=== PATIENT | female | born 1990 | race Caucasian/White ===

== ENCOUNTER 2016-12-05 00:59 | Emergency (ER) | payer OTHER ==
[~2016-12-05] VITALS: Ht 175.3 cm; Wt 153.0 kg
[~2016-12-05 00:59] MED LIST: ALBUAER2 INH; CLOB-65 TOP; CYCL5TAB PO; DICY10CA55 PO; LANS30CA63 PO
[2016-12-05 01:05] VITALS: TEMP 36.4; Ht 175.3 cm; Wt 153.0 kg
[2016-12-05] MEDS ORDERED: DIAZEPAM 5MG TAB PO STA ×2 (01:08→01:52)
[2016-12-05] MEDS ORDERED: OXYCODONE HCL IR 5 MG TAB (IMMEDIATE RELEASE) PO STA (01:08)
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
[2016-12-05] MEDS ORDERED: OXYC1TAB3 PO (01:45)
[2016-12-05] MEDS ORDERED: DIAZ-165 PO (01:45)
[2016-12-05] MEDS ORDERED: VNTHFA/IN INH (01:51)
[2016-12-05] MEDS ORDERED: OXYCODONE IR HOME PACK PO ONE (02:00)
[2016-12-05] MEDS ORDERED: ONDANSETRON HOME PACK 4MG OD TAB PO ONE (02:00)
[2016-12-05 03:02] VITALS: BP 143/89; PULSE 84; O2SAT 99
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
[2017-06-14] MEDS ORDERED: MTR600X PO (15:26)
== END 2016-12-05 03:03 | disposition home or self-care (01) ==
LOC: EDBD 00:59 → C.EDB 01:01
DX: S13.4XXA Sprain of ligaments of cervical spine, initial encounter (principal); V89.2XXA Person injured in unspecified motor-vehicle accident, traffic, initial encounter; J45.909 Unspecified asthma, uncomplicated; K21.9 Gastro-esophageal reflux disease without esophagitis; E03.9 Hypothyroidism, unspecified; Z90.49 Acquired absence of other specified parts of digestive tract

== ENCOUNTER 2017-04-20 13:27 | Observation (INO) | payer OTHER ==
[~2017-04-20] VITALS: Ht 175.3 cm; Wt 149.2 kg
[~2017-04-20 13:27] MED LIST changes: -ALBUAER2 INH; -CLOB-65 TOP; +DIAZ-165 PO; +OXYC1TAB3 PO; +VNTHFA/IN INH
[2017-04-20] MEDS ORDERED: SODIUM CHLORIDE 0.9% 1000ML 1,000 ML IV STA (13:52)
[2017-04-20] MEDS ORDERED: LORAZEPAM 2 MG/ML 1 ML VIAL IV STA (14:02)
[2017-04-20 14:10] LABS: BASO % 0.2 %; BASO ABS # 0.02 K/uL (0-0.2); COMPLETE YES; EOS % 0.9 %; HEMATOCRIT 44.9 % (37-47); IG% 0.3 %; LYMPH % 21.4 %; LYMPH ABS # 2.21 K/uL (1.2-3.4); MEAN CELL VOLUME 86.2 fL (80-100); MEAN CORPUSCULAR HEMOGLOBIN 28.4 pg (25-34); MEAN PLATELET VOLUME 9.5 fL (7.4-10.4); MONO % 6.8 %; NEUT % 70.4 %; PLATELET COUNT 355 K/uL (130-400); RED BLOOD COUNT 5.21 M/uL (4.2-5.4); WHITE BLOOD COUNT 10.34 K/uL (4.8-10.8)
[2017-04-20] MEDS ORDERED: RANI300T2 PO (14:11)
[2017-04-20] MEDS ORDERED: FOLI1TAB7 PO (14:11)
[2017-04-20] MEDS ORDERED: HYDR50TA3 PO (14:11)
--- NOTE | 2017-04-20 14:12 | EMERGENCY ROOM VISIT NOTE ---
History Report prepared by Iraida: Severino Pike Under the Supervision of: Dr. Zoran Tian M.D. First contact with patient: 13:52 Chief Complaint: ILLNESS Stated Complaint: SYNCOPE/ANXIETY History of Present Illness The patient is a 26 year old female who presents to the Emergency Room via EMS for syncopal episodes this morning. She says that she felt fine yesterday and when she woke up this morning. The patient states that she took her daily medications as per usual this morning, including a thyroid hormone medication that she started 3 days ago for hyperthyroidism. She adds that she took 600 mg ibuprofen as well. She states that she does not remember falling to the ground, but did wake up at some point on a chair. The patient thinks she may have passed out an unknown number of times. She does not think she hit her head or bit her tongue. The patient says that she has had chest pain, a headache, nausea , and neck soreness starting this morning as well. The patient approximates that the chest pain started around 4 hours ago. She denies any vomiting. The only person in the house with her this morning was the patient's young daughter. She presents by ambulance. Source of History: patient, family Onset: This morning Position: other (global - syncope) Timing: other (episodes) Associated Symptoms: + LOC, + headache, + neck pain, + nausea, No vomiting Note: Associated symptoms: Denies hitting her head or biting her tongue. Review of Systems See HPI for pertinent positives & negatives. A total of 10 systems reviewed and were otherwise negative. Past Medical & Surgical Medical Problems: (1) Asthma (2) GERD (gastroesophageal reflux disease) (3) History of DVT of lower extremity (4) Hypothyroidism (5) Migraine (6) Migraine headache (7) Syncope and collapse Surgical Problems: (1) Status post cholecystectomy Family History Diabetes mellitus FH: cancer FH: gallbladder disease FH: heart disease FH: lung disease Hypertension Kidney disease or stones Seizures Social History Smoking Status: Never Smoker Alcohol Use: other Drug Use: none Marital Status: single Housing Status: lives with family Occupation Status: employed Current/Historical Medications Scheduled Folic Acid (Folvite), 1 MG PO DAILY Hydrochlorothiazide (Hctz), 50 MG PO DAILY Lansoprazole (Prevacid), 30 MG PO QAM Ranitidine (Zantac), 300 MG PO HS Scheduled PRN Albuterol Hfa (Ventolin Hfa), 2 PUFFS INH Q6H PRN for SOB/Wheezing Cyclobenzaprine Hcl (Flexeril), 5 MG PO TID PRN for Muscle Spasms Dicyclomine Hcl (Bentyl), 10-20 MG PO QID PRN for abd pain Allergies Coded Allergies: Heparin (Verified Allergy, Severe, CELLULITIS AT INJECTION SITES, 04/20/17) Blueberry (Verified Allergy, Intermediate, HIVES, 04/20/17) Ceftriaxone (Verified Allergy, Intermediate, itching,HIVES, 04/20/17) Cephalexin (Verified Allergy, Intermediate, ittchy, 04/20/17) Oxycodone (Verified Allergy, Intermediate, hives n/v, 04/20/17) Penicillins (Verified Allergy, Intermediate, AMOXICILLIN SOB, TACHYCARDIA & HIVES, 04/20/17) Codeine (Verified Allergy, Mild, RASH, 04/20/17) Morphine (Verified Allergy, Mild, ABDOMINAL PAIN,DIARRHEA,HIVES NAUSEA AND VOMITING, 04/20/17) Amoxicillin (Unverified Allergy, Unknown, HIVES,RASH HIGH BP,FAST HEART RATE,DIARRHEA,SOB, 04/20/17) Dust (Unverified Allergy, Unknown, WHEEZING,SOB, 04/20/17) Quadrivalent HPV (6,11,16,18) Recom (Verified Allergy, Unknown, RASH RAPID HEART BEAT, 04/20/17) Acetaminophen (Verified Adverse Reaction, Severe, ELEVATED LFTS WITH MINIMAL DOSES, 04/20/17) Unclassified Drugs (Verified Adverse Reaction, Intermediate, Vicryl Sutures - infection outcome x 2, 04/20/17) PER PATIENT, DEVELOPED INFECTION TWICE FOLLOWING PROCEDURES INVOLVING THE USE OF VICRYL STITCHING Vancomycin (Verified Adverse Reaction, Intermediate, ITCHING,SOB, 04/20/17) Tramadol (Verified Adverse Reaction, Mild, nausea, vomiting, 04/20/17) Physical Exam Vital Signs Date Time Temp Pulse Resp B/P (MAP) Pulse Ox O2 Delivery O2 Flow Rate FiO2 04/20/17 17:52 73 04/20/17 16:27 73 22 96 04/20/17 15:57 65 22 97 04/20/17 15:27 59 22 100 04/20/17 15:19 68 24 164/97 100 Room Air 04/20/17 15:17 68 24 164/97 100 Room Air 65 160/100 71 163/94 04/20/17 15:10 163/94 04/20/17 15:08 160/100 04/20/17 15:07 179/110 04/20/17 15:02 100 Room Air 04/20/17 14:57 66 27 04/20/17 14:53 61 164/97 04/20/17 14:45 164/97 04/20/17 14:11 72 04/20/17 13:57 58 27 04/20/17 13:47 168/101 04/20/17 13:44 36.7 78 24 198/110 100 Room Air Physical Exam GENERAL: Patient is in no acute distress. HEENT: No acute trauma, normocephalic atraumatic, mucous membranes moist, no nasal congestion, no scleral icterus. NECK: No stridor, no adenopathy, no meningismus, trachea is midline. LUNGS: Clear to auscultation bilaterally, no wheeze, no rhonchi, breath sounds equal. HEART: Without murmurs gallops or rubs, regular rate and rhythm. CHEST: Tender left chest wall. ABDOMEN: Soft, nontender, bowel sounds positive, no hernias, no peritonitis. EXTREMITIES: No cyanosis or edema, full range of motion of all the joints without pain or difficulty, no signs for acute trauma. Extremity tremor noted. NEUROLOGIC: Oriented x 3, no acute motor or sensory deficits, no focal weakness. SKIN: No rash, no jaundice, no diaphoresis. Medical Decision & Procedures ER Provider Diagnostic Interpretation: Radiology results as stated below per my review and radiologist interpretation: Patient's orthostatic vital signs are negative. CHEST ONE VIEW PORTABLE CLINICAL HISTORY: 26 years-old Female presenting with EVALUATE ALTERED MENTAL STATUS/WEAKNESS. TECHNIQUE: Portable upright AP view of the chest was obtained. COMPARISON: 05/29/2015. FINDINGS: Cardiomediastinal silhouette normal. Lungs and pleural spaces clear. Osseous structures and upper abdomen normal. IMPRESSION: 1. No acute cardiopulmonary disease. Electronically signed by: Kedar Dimas M.D. 04/20/2017 2:20 PM Dictated Date/Time: 04/20/2017 2:19 PM HEAD WITHOUT CONTRAST (CT) CLINICAL HISTORY: 26 years-old Female presenting with headache, syncope, neck pain, anxiety. TECHNIQUE: Multidetector CT imaging of the head was performed without the use of intravenous contrast. IV contrast: None. A dose lowering technique was used consistent with the principles of ALARA (as low as reasonably achievable). COMPARISON: None. CT DOSE (mGy.cm): The estimated cumulative dose is 1099.97 inclusive of the cervical spine. FINDINGS: Agronomy Instructor topogram: Unremarkable. Ventricles and sulci normal in size. Brain parenchyma normal in appearance with preserved galvan-white differentiation. No mass effect or midline shift. No hemorrhage or acute territorial infarct. No extra-axial fluid collection. Paranasal sinuses and mastoid air cells clear. Calvarium intact. Tiny soft tissue nodule at the left frontal vertex, possibly sebaceous cyst. IMPRESSION: 1. No acute intracranial pathology. Electronically signed by: Kedar Dimas M.D. 04/20/2017 2:42 PM Dictated Date/Time: 04/20/2017 2:40 PM CERVICAL SPINE W/O CT DOSE: 1099.97 mGy.cm HISTORY: Pain neck pain TECHNIQUE: Multiaxial CT images of the cervical spine were performed and reformatted in the sagittal and coronal plane without the use of contrast. A dose lowering technique was utilized adhering to the principles of ALARA. COMPARISON: None. FINDINGS: No fractures. No subluxation. Prevertebral soft tissues and the C1-C2 interval are intact. No pneumothorax. IMPRESSION: No fractures within the cervical spine. The above report was generated using voice recognition software. It may contain grammatical, syntax or spelling errors. Electronically signed by: Sudeep Anand M.D. 04/20/2017 2:42 PM Dictated Date/Time: 04/20/2017 2:40 PM Laboratory Results 04/20/17 14:00 Red Blood Count 5.21, Mean Corpuscular Volume 86.2, Mean Corpuscular Hemoglobin 28.4, Mean Corpuscular Hemoglobin Concent 33.0, Mean Platelet Volume 9.5, Neutrophils (%) (Auto) 70.4, Lymphocytes (%) (Auto) 21.4, Monocytes (%) (Auto) 6.8, Eosinophils (%) (Auto) 0.9, Basophils (%) (Auto) 0.2, Neutrophils # (Auto) 7.29, Lymphocytes # (Auto) 2.21, Monocytes # (Auto) 0.70, Eosinophils # (Auto) 0.09, Basophils # (Auto) 0.02 04/20/17 14:00 Test 04/20/17 14:00 04/20/17 14:17 04/20/17 18:45 White Blood Count 10.34 K/uL (4.8-10.8) Red Blood Count 5.21 M/uL (4.2-5.4) Hemoglobin 14.8 g/dL (12.0-16.0) Hematocrit 44.9 % (37-47) Mean Corpuscular Volume 86.2 fL (80-100) Mean Corpuscular Hemoglobin 28.4 pg (25-34) Mean Corpuscular Hemoglobin Concent 33.0 g/dl (32-36) Platelet Count 355 K/uL (130-400) Mean Platelet Volume 9.5 fL (7.4-10.4) Neutrophils (%) (Auto) 70.4 % Lymphocytes (%) (Auto) 21.4 % Monocytes (%) (Auto) 6.8 % Eosinophils (%) (Auto) 0.9 % Basophils (%) (Auto) 0.2 % Neutrophils # (Auto) 7.29 K/uL (1.4-6.5) Lymphocytes # (Auto) 2.21 K/uL (1.2-3.4) Monocytes # (Auto) 0.70 K/uL (0.11-0.59) Eosinophils # (Auto) 0.09 K/uL (0-0.5) Basophils # (Auto) 0.02 K/uL (0-0.2) RDW Standard Deviation 43.9 fL (36.4-46.3) RDW Coefficient of Variation 14.0 % (11.5-14.5) Immature Granulocyte % (Auto) 0.3 % Immature Granulocyte # (Auto) 0.03 K/uL (0.00-0.02) D-Dimer 530 ug/L FEU (0-500) Anion Gap 7.0 mmol/L (3-11) Est Creatinine Clear Calc Drug Dose 149.3 ml/min Estimated GFR () 103.0 Estimated GFR (Non- 88.9 BUN/Creatinine Ratio 20.4 (10-20) Calcium Level 9.4 mg/dl (8.5-10.1) Magnesium Level 2.2 mg/dl (1.8-2.4) Total Bilirubin 0.4 mg/dl (0.2-1) Aspartate Amino Transf (AST/SGOT) 15 U/L (15-37) Alanine Aminotransferase (ALT/SGPT) 32 U/L (12-78) Alkaline Phosphatase 108 U/L (45-117) Total Protein 7.7 gm/dl (6.4-8.2) Albumin 3.9 gm/dl (3.4-5.0) Globulin 3.8 gm/dl (2.5-4.0) Albumin/Globulin Ratio 1.0 (0.9-2) Thyroid Stimulating Hormone (TSH) 3.330 uIu/ml (0.300-4.500) Free Thyroxine 1.35 ng/dl (0.80-1.60) Human Chorionic Gonadotropin, Qual NEG (NEG) Urine Color YELLOW Urine Appearance CLEAR (CLEAR) Urine pH 5.5 (4.5-7.5) Urine Specific [place] 1.013 (1.000-1.030) Urine Protein NEG (NEG) Urine Glucose (UA) NEG (NEG) Urine Ketones NEG (NEG) Urine Occult Blood NEG (NEG) Urine Nitrite NEG (NEG) Urine Bilirubin NEG (NEG) Urine Urobilinogen NEG (NEG) Urine Leukocyte Esterase NEG (NEG) Urine Opiates Screen NEG (NEG) Urine Methadone, Qualitative NEG (NEG) Urine Barbiturates NEG (NEG) Urine Phencyclidine (PCP) Level NEG (NEG) Ur Amphetamine/Methamphetamine NEG (NEG) MDMA (Ecstasy) Screen NEG (NEG) Urine Benzodiazepines Screen NEG (NEG) Urine Cocaine Metabolite NEG (NEG) Urine Marijuana (THC) NEG (NEG) Laboratory results reviewed by me. Medications Administered Medications (Trade) Dose Ordered Sig/Lesvia Route Start Time Stop Time Status Last Admin Dose Admin Sodium Chloride 1,000 ml @ 999 mls/hr Q1H1M STAT IV 04/20/17 13:52 04/20/17 14:52 DC 04/20/17 14:56 999 MLS/HR Lorazepam (Ativan Inj) 0.5 mg NOW STAT IV 04/20/17 14:02 04/20/17 14:06 DC 04/20/17 14:56 0.5 MG Promethazine HCl 12.5 mg/Sodium Chloride 50.5 ml @ 204 mls/hr NOW STAT IV 04/20/17 15:24 04/20/17 15:38 DC 04/20/17 15:37 204 MLS/HR Ketorolac Tromethamine (Toradol Inj) 30 mg NOW STAT IV 04/20/17 15:24 04/20/17 15:26 DC 04/20/17 15:37 30 MG Hydromorphone HCl (Dilaudid Inj) 0.5 mg STK-MED ONCE .ROUTE 04/20/17 18:22 04/20/17 18:23 DC 04/20/17 18:25 0.5 MG ECG Indication: chest pain, syncope Rate (beats per minute): 58 Rhythm: sinus bradycardia Findings: no acute ischemic change, no ectopy ED Course 1352: Ordered NSS 1000 ml @ 999 mls/hr IV. 1359: The patient was evaluated in room B9. A complete history and physical exam was performed. 1402: Ordered Ativan Inj 0.5 mg IV. 1524: Ordered Toradol Inj 30 mg IV, Promethazine HCl 12.5 mg/Sodium Chloride 50.5 ml @ 204 mls/hr IV. 1528: Patient's orthostatic vital signs are negative. 1630: I reevaluated and updated the patient. 1725: Upon reexamination the patient is resting. I discussed results and treatment plan with the patient. She verbalizes agreement and understanding. The patient will be evaluated for further management. 1728: Ordered Dilaudid Inj 0.5 mg IV. 1730: I discussed the patient with Dr. Jaimee Higginbotham course developer - he will evaluate the patient for further treatment. Medical Decision Differential diagnoses considered include dehydration, anxiety, anemia, electrolyte imbalance, dysrhythmia, intracranial bleeding, medication reaction, UTI. There is no leukocytosis or concerning anemia. No significant electrolyte abnormality, kidney failure, hepatitis. The patient appears to be in a euthyroid state. EKG shows a sinus bradycardia, no acute ischemia. Cardiac enzyme testing times one does not suggest acute cardiac injury. Chest x-ray shows no mediastinal widening, pneumonia or pneumothorax. Brain CT shows no acute bleed or mass effect. C-spine CT shows no acute fracture. Urine tox is negative. Urinalysis does not show infection. testing is negative. D-dimer was very mildly elevated. The patient received IV saline, IV Toradol and IV Ativan. She received IV Phenergan and eventually a dose of IV Dilaudid. The patient still feels poorly. We did attempt to get her up to walk around the ER but she had a syncopal event just trying to get off the stretcher. I think the patient's chest pain is likely musculoskeletal as it is reproducible on exam. However, I cannot explain the patient's syncope. I find nothing on workup that is concerning, still, she cannot stand without passing out. Possibly, she is having a reaction to her new thyroid medication. Possibly, she had a seizure earlier today-no one witnessed the event. I did speak to the patient and family, the on-call hospitalist was consulted. Admission/observation is warranted given her situation. Further workup is required. Of note, because of the mildly elevated d-dimer, the patient did have a chest CT done, no PE was seen. Consults Time Called: 1725 Consulting Physician: Dr. Jaimee Higginbotham course developer Returned Call: 1730 I discussed the patient with Dr. Jaimee Higginbotham course developer - he will evaluate the patient for further treatment. Impression Primary Impression: Left sided chest pain Additional Impression: Syncope Scribe Attestation The scribe's documentation has been prepared under my direction and personally reviewed by me in its entirety. I confirm that the note above accurately reflects all work, treatment, procedures, and medical decision making performed by me. Departure Information Dispostion Being Evaluated By Hospitalist Referrals Ronel Hector DO (PCP) Patient Instructions My [facility] Problem Qualifiers Additional Impression: Syncope Encounter type: initial encounter
--- NOTE | 2017-04-20 14:21 | DIAGNOSTIC IMAGING REPORT ---
CHEST ONE VIEW PORTABLE CLINICAL HISTORY: 26 years-old Female presenting with EVALUATE ALTERED MENTAL STATUS/WEAKNESS. TECHNIQUE: Portable upright AP view of the chest was obtained. COMPARISON: 05/29/2015. FINDINGS: Cardiomediastinal silhouette normal. Lungs and pleural spaces clear. Osseous structures and upper abdomen normal. IMPRESSION: 1. No acute cardiopulmonary disease. Electronically signed by: Kedar Dimas M.D. 04/20/2017 2:20 PM Dictated Date/Time: 04/20/2017 2:19 PM
[2017-04-20 14:28] LABS: ALT/SGPT 32 U/L (12-78); AST/SGOT 15 U/L (15-37); BLOOD UREA NITROGEN 18 mg/dl (7-18); BUN/CREATININE RATIO 20.4 (10-20); CALCIUM 9.4 mg/dl (8.5-10.1); CARBON DIOXIDE 27 mmol/L (21-32); CHLORIDE 104 mmol/L (98-107); GLUCOSE 94 mg/dl (70-99); MAGNESIUM 2.2 mg/dl (1.8-2.4); POTASSIUM 3.2 mmol/L (3.5-5.1); SODIUM 138 mmol/L (136-145)
[2017-04-20 14:32] LABS: PREG INTERNAL NEGATIVE QC NEG CLEAR BACKGROUND; PREG INTERNAL POSITIVE QC POS CONTROL LINE
[2017-04-20 14:39] LABS: ALKALINE PHOSPHATASE 108 U/L (45-117)
--- NOTE | 2017-04-20 14:43 | DIAGNOSTIC IMAGING REPORT ---
CERVICAL SPINE W/O CT DOSE: 1099.97 mGy.cm HISTORY: Pain neck pain TECHNIQUE: Multiaxial CT images of the cervical spine were performed and reformatted in the sagittal and coronal plane without the use of contrast. A dose lowering technique was utilized adhering to the principles of ALARA. COMPARISON: None. FINDINGS: No fractures. No subluxation. Prevertebral soft tissues and the C1-C2 interval are intact. No pneumothorax. IMPRESSION: No fractures within the cervical spine. The above report was generated using voice recognition software. It may contain grammatical, syntax or spelling errors. Electronically signed by: Sudeep Anand M.D. 04/20/2017 2:42 PM Dictated Date/Time: 04/20/2017 2:40 PM
--- NOTE | 2017-04-20 14:43 | DIAGNOSTIC IMAGING REPORT ---
HEAD WITHOUT CONTRAST (CT) CLINICAL HISTORY: 26 years-old Female presenting with headache, syncope, neck pain, anxiety. TECHNIQUE: Multidetector CT imaging of the head was performed without the use of intravenous contrast. IV contrast: None. A dose lowering technique was used consistent with the principles of ALARA (as low as reasonably achievable). COMPARISON: None. CT DOSE (mGy.cm): The estimated cumulative dose is 1099.97 inclusive of the cervical spine. FINDINGS: Automotive Product Engineer topogram: Unremarkable. Ventricles and sulci normal in size. Brain parenchyma normal in appearance with preserved galvan-white differentiation. No mass effect or midline shift. No hemorrhage or acute territorial infarct. No extra-axial fluid collection. Paranasal sinuses and mastoid air cells clear. Calvarium intact. Tiny soft tissue nodule at the left frontal vertex, possibly sebaceous cyst. IMPRESSION: 1. No acute intracranial pathology. Electronically signed by: Kedar Dimas M.D. 04/20/2017 2:42 PM Dictated Date/Time: 04/20/2017 2:40 PM
[2017-04-20 14:52] LABS: URINE APPEARANCE CLEAR (CLEAR); URINE BILIRUBIN NEG (NEG); URINE COLOR YELLOW; URINE NITRITE NEG (NEG); URINE PH 5.5 (4.5-7.5); URINE SPECIFIC GRAVITY 1.013 (1.000-1.030); UROBILINOGEN NEG (NEG); ZZUR CULT IF INDIC CLEAN CATCH NO
[2017-04-20 14:59] LABS: MANUAL MICROSCOPIC REQUIRED? NO; REVIEW REQ? NO
[2017-04-20] MEDS ORDERED: KETOROLAC TROMETHAMINE 30 MG/ML VIAL IV STA (15:24)
[2017-04-20] MEDS ORDERED: PROMETHAZINE HCL INJ 12.5 MG in SODIUM CHLORIDE 0.9% 50ML 50 ML IV STA (15:24)
[2017-04-20 15:26] LABS: BENZODIAZEPINE, URINE NEG (NEG); COCAINE,URINE NEG (NEG); PHENCYCLIDINE, URINE NEG (NEG)
[2017-04-20] MEDS ORDERED: HYDROmorphone INJ 2 MG/ML SYR/VIAL IV STA (17:28)
[2017-04-20] MEDS ORDERED: ALBUTEROL HFA 8 GM INHALER INH PRN (18:00)
[2017-04-20] MEDS ORDERED: DICYCLOMINE HCL 20 MG TAB PO PRN (18:00)
[2017-04-20] MEDS ORDERED: OPTIRAY 320 IV PRN (18:15)
[2017-04-20] MEDS ORDERED: HYDROmorphone INJ 0.5 MG/0.5 ML SYR ONE (18:22)
--- NOTE | 2017-04-20 18:48 | DIAGNOSTIC IMAGING REPORT ---
CT ANGIOGRAPHY OF THE CHEST, PULMONARY EMBOLUS PROTOCOL CLINICAL HISTORY: Elevated d-dimer. Syncope. COMPARISON STUDY: Chest CT in October 06, 2015 TECHNIQUE: Following IV administration of 94 mL of Optiray-320, helical axial images of the chest were obtained utilizing the pulmonary embolus protocol. Maximal intensity projections and sagittal and coronal reformats were viewed on an independent 3D workstation. IV contrast was administered without complication. A dose lowering technique was utilized adhering to the principles of ALARA. CT DOSE: 642.33 mGy.cm FINDINGS: No pulmonary emboli are identified although segmental and subsegmental vessels are suboptimally assessed due to respiratory motion. There is no evidence of thoracic aortic dissection. The size the heart is normal. There is no pericardial effusion. Ground glass opacities within lungs favor atelectasis. There is no consolidation to suggest pneumonia. No pneumothorax or pleural effusion is present. No enlarged axillary, mediastinal or hilar lymph nodes are present. The gallbladder surgically absent. Mild elevation of the right hemidiaphragm is unchanged. There may be fatty infiltration of the liver. IMPRESSION: 1. No pulmonary emboli identified although segmental and subsegmental vessels suboptimally assessed due to respiratory motion. 2. No acute intrathoracic findings. 3. Groundglass opacities within the lower lobes which favor atelectasis. Electronically signed by: Mik Arredondo M.D. 04/20/2017 6:47 PM Dictated Date/Time: 04/20/2017 6:40 PM
[2017-04-20] MEDS ORDERED: IV FLUIDS COMPLETED PRN (19:00)
--- NOTE | 2017-04-20 19:02 | HISTORY & PHYSICAL EXAMINATION ---
DATE OF ADMISSION: 04/20/2017 PRIMARY CARE PHYSICIAN: Dr. Ronel Hector. CHIEF COMPLAINT: Recurrent syncopal episode since this morning. HISTORY OF PRESENT COMPLAINT: She is a 26-year-old female with significant past medical history including migraine, chronic diarrhea, hypothyroidism, esophageal reflux, dysfunction of eustachian tube, allergic rhinitis, obesity, apparently has been complaining of recurrent syncope since this morning. She feels lightheaded with dizziness and feels her heart is racing. She gets shortness of breath and loses consciousness, according to the family members and the fiance. It has been going on off and on. She is out from anywhere between a few seconds to minutes, but she can be awakened with shaking and calling her names. There is no history of numbness or tingling or any weakness involving any side, before the episode. No history of palpitations before the episode and no fever, chills or rigors. No injury from syncope or no self injury. No rolling of the eyes and no history of incontinence and/or frothing from the mouth. She does not feel generally weak and lethargic following any of the episodes. 911 was called and she was brought into the Emergency Room. In the ER, she was hemodynamically stable. Her apparent test including CAT scan, x-rays, EKG and blood test came out to be unremarkable. She was about to leave, but she got very dizzy on standing and from that point, internal medicine consulted and she is going to be in the hospital for observation. PAST MEDICAL HISTORY: Significant for classic migraine, intestinal disaccharidase deficiency with chronic diarrhea, hypothyroidism diagnosed recently, esophageal reflux, history of dysfunction of the eustachian tube, allergic rhinitis, obesity, and history of DVT. PAST SURGICAL HISTORY: Significant for arthro surgery of the left knee, laparoscopic cholecystectomy, small bowel endoscopy, vein ablation of the right thigh and also on the left side. FAMILY HISTORY: Aunt has diabetes. Sister has diabetes. Father had a stroke and sleep apnea. Maternal grandparent and grandmother did have hypertension. SOCIAL HISTORY: She is single. She lives with her fiance. She has 1 child. She does not smoke, drinks occasionally, and she has been reasonably ambulant. ALLERGIES: SHE IS ALLERGIC TO MANY MEDICATIONS INCLUDING HEPARIN, BLUEBERRY, CEFTRIAXONE, OXYCODONE, PENICILLINS, CODEINE, MORPHINE, AMOXICILLIN, DUST, CONTRAST DYE, TYLENOL, VICRYL SUTURES, VANCOMYCIN AND TRAMADOL. MEDICATIONS: As an outpatient, she has been taking albuterol inhaler as needed, Flexeril 5 mg 3 times daily, Bentyl 10-20 mg as directed, folic acid 1 mg daily, hydrochlorothiazide 50 mg daily, Prevacid 30 mg daily, and ranitidine 300 mg at nighttime. She has been taking levothyroxine 75 mcg for the last 3 days. REVIEW OF SYSTEMS: Other systemic review unremarkable except those mentioned in history of present illness. PHYSICAL EXAMINATION: GENERAL: In the Emergency Room, she was not having any acute distress. VITAL SIGNS: Temperature 36.7, pulse of 72; blood pressure initially high 198/110, it came down to 160/97; saturation 96% on room air. HEENT: Unremarkable. NECK: Supple. No JVD, no bruit. CHEST: Clear to auscultate bilaterally. HEART: S1, S2 regular. ABDOMEN: Soft, benign, nontender, no organomegaly. Bowel sounds present. EXTREMITIES: 1+ edema bilaterally. CENTRAL NERVOUS SYSTEM: She was alert, awake, oriented x3. No focal sensory and/or motor deficit appreciated. LABORATORY DATA: Noted today white count was 10.34, H&H 14.8/44.9, platelet was 355. Sodium 138, potassium 3.2, chloride 104, carbon dioxide 27, BUN 18, creatinine 0.90, random glucose 94; calcium 9.4. LFTs unremarkable. Troponin less than 0.015. TSH was 3.30. HCG negative. D-dimer of 530. Toxic screen negative. Urine was negative too. IMAGING DATA: Chest x-ray, no acute cardiopulmonary disease. CT of the head - no acute intracranial pathology. Cervical spine CT, no fracture within the cervical spine. EKG was in sinus rhythm, rate of 58 per minute, normal axis and no significant ST-T wave abnormality. IMPRESSION AND PLAN: 1. Recurrent syncope and collapse, no definite cause was found at this time but to rule out cardiac arrhythmias. Doubt any seizure activity. No infective process at this time and doubt any neurologic events as well. She will be admitted to telemetry unit for observation. We will monitor the patient in the hospital. Neuro examination q. shift. We will give IV fluids with potassium supplement and give symptomatic medication while in the hospital.CTA to rule out Pulmonary Embolism. 2. Esophageal reflux, has been on a proton pump inhibitor and H2 david. Continue with those. 3. Recently diagnosed hypothyroidism. TSH is normal. We will continue her thyroid medication as an outpatient. 4. History of migraine with neck pain. Will continue with Toradol IV as needed for pain control. 4. History of deep vein thrombosis, now the D-dimer is elevated, CTA to rule out pulmonary embolism. 5. Gastrointestinal prophylaxis with Protonix and H2 david. 6. Deep venous thrombosis prophylaxis with sequential compression devices. She cannot use any heparin at this time. 7. Code status - she will be a full code. In my clinical judgment, the beneficiary meets criteria as per CMS for 2-midnight stay in the hospital. [facility]
[2017-04-20 19:35] VITALS: BP 137/83; PULSE 69; TEMP 36.8; O2SAT 97; Ht 175.3 cm; Wt 149.2 kg
[2017-04-20] MEDS: NSS + 20MEQ KCL 1000ML 1,000 ML IV SCH (20:18)
[2017-04-20] MEDS: ONDANSETRON INJ 2 MG/ML 2 ML VIAL IV PRN (20:22)
[2017-04-20] MEDS: RANITIDINE HCL 150 MG TAB PO SCH (21:39)
[2017-04-20] MEDS: CYCLOBENZAPRINE HCL 5 MG TAB PO PRN (21:39)
[2017-04-20] MEDS: KETOROLAC TROMETHAMINE 30 MG/ML VIAL IV PRN (21:40)
[2017-04-21] VITALS (7 sets, daily range): BP systolic 103–143; BP diastolic 53–80; PULSE 52–81; TEMP 36.6–36.8; O2SAT 97–99
[2017-04-21 06:36] LABS: HEMATOCRIT 37.9 % (37-47); MEAN CELL VOLUME 87.3 fL (80-100); MEAN CORPUSCULAR HEMOGLOBIN 28.3 pg (25-34); MEAN CORPUSCULAR HGB CONC 32.5 g/dl (32-36); MEAN PLATELET VOLUME 9.4 fL (7.4-10.4); PLATELET COUNT 298 K/uL (130-400); RED BLOOD COUNT 4.34 M/uL (4.2-5.4); WHITE BLOOD COUNT 6.89 K/uL (4.8-10.8)
[2017-04-21 07:12] LABS: BUN/CREATININE RATIO 23.8 (10-20); CALCIUM 8.4 mg/dl (8.5-10.1); CREATININE 0.76 mg/dl (0.60-1.20); MAGNESIUM 2.2 mg/dl (1.8-2.4); POTASSIUM 3.4 mmol/L (3.5-5.1)
[2017-04-21] MEDS: KETOROLAC TROMETHAMINE 30 MG/ML VIAL IV PRN ×2 (07:13→17:06)
[2017-04-21] MEDS: PANTOprazole SOD 40 MG TAB PO SCH (08:00)
[2017-04-21] MEDS: HYDROCHLOROTHIAZIDE 50 MG TAB PO SCH (08:00)
[2017-04-21] MEDS: NSS + 20MEQ KCL 1000ML 1,000 ML IV SCH ×2 (08:00→21:27)
[2017-04-21] MEDS ORDERED: POTASSIUM CHLORIDE 10 MEQ TABCR PO STA (08:19)
[2017-04-21] MEDS: ONDANSETRON INJ 2 MG/ML 2 ML VIAL IV PRN ×3 (09:06→21:27)
--- NOTE | 2017-04-21 12:08 | Psychiatric Consultation ---
Consultation Date of Consultation Apr 21, 2017. Identifying Data 26-year-old female from [place] who has no psychiatric history but a medical history of migraine, obesity, hypothyroidism, GERD, and chronic diarrhea, who was admitted to the hospitalist service yesterday after a possible syncopal episode. Psychiatry is consulted for anxiety and depression. Chief Complaint "I might have a little anxiety, but I'm definitely not depressed". History of Present Illness Patient presented to the emergency room yesterday via EMS after she had a syncopal episode at home. She felt fine and in her normal state of health, had taken her daily medications as per usual, and then developed acute onset of chest pain, headache, nausea, and neck soreness, and the next thing she knew woke up sitting on the chair. She reported episodes of shortness of breath, lightheadedness, dizziness, and loss of consciousness, lasting anywhere from a few seconds to minutes, during which she can be awakened by shaking and calling her name. No prodrome, incontinence, tongue biting, abnormal eye movements, or postictal symptoms. In the emergency room, she was hemodynamically stable, and EKG, chest x-ray, head CT, C-spine CT, and chest and thorax CTA were all negative. D-dimer was elevated at 530, and she was hypokalemic with a potassium of 3.2. She received Ativan 0.5 mg, Toradol 30 mg, and promethazine 12.5 mg IV. She was going to be discharged from the emergency room, but continued to have dizziness, so was given Dilaudid 0.5 mg IV and admitted. Neurology has also been consulted. On my assessment, the patient states that she is definitely not depressed, his mood has been good, she enjoys life, especially cooking and playing with her 7-year-old daughter, and has a negative neurovegetative profile. She does endorse some anxiety over the past 1-2 months , due to being laid off from her [employer] job for the summer and having bills to pay, including a car payment. 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 She does not generally consider herself a worrier, but has been worried about her finances, and at times has difficulty "turning off" the worry. She also endorses an increase in tension headaches over the past 1-2 months, but denies all other symptoms of generalized anxiety disorder. She does not feel that her anxiety is debilitating, and believes that it will resolve when she starts her job again next month, as she will be less worried about finances. She does not think that her anxiety played a role in her syncopal episode yesterday, stating that she wasn't feeling anxious at all at the time, and that instead she had chest pain and neck discomfort. She reports good sleep and appetite and denies any thoughts of harming herself or others. She states she had a panic attack a couple of months ago in the context of stress, that consisted of shortness of breath, increased heart rate, heavy breathing, and chest tightness. It lasted a few minutes, and it has not recurred since then. She continues to have episodes where her chest is tight which she feels like her heart is racing, but they are not occurring in the context of other anxiety or panic symptoms. Although Flexeril is listed as a home medication, she states she has not taken it in approximately 2 years, and uses it only very rarely, when she has injured her neck or back. She did recently start levothyroxine 75 mg daily about 3 days prior to admission, stating she had been on it in the past, but was off of it for the past year or so and felt more fatigued. She says her PCP checked her thyroid levels, and told her to re-start replacement therapy, as they were low. She believes she was previously on a higher dose of levothyroxine. Past Psychiatric History Current OP Treatment: no current treatment Prior OP Treatment: no prior treatment Prior Psych Hospitalizations: none Suicide Attempts: No Past Medication Trials No history of psychiatric diagnoses or medications. Past Medical/Surgical History (1) Obesity (2) Syncope (3) Migraine (4) Hypokalemia (5) Dehydration (6) Acute gastroenteritis (7) History of DVT of lower extremity (8) Asthma (9) GERD (gastroesophageal reflux disease) (10) Migraine headache Allergies Allergies: Coded Allergies: Heparin (Verified Allergy, Severe, CELLULITIS AT INJECTION SITES, 04/20/17) Blueberry (Verified Allergy, Intermediate, HIVES, 04/20/17) Ceftriaxone (Verified Allergy, Intermediate, itching,HIVES, 04/20/17) Cephalexin (Verified Allergy, Intermediate, ittchy, 04/20/17) Oxycodone (Verified Allergy, Intermediate, hives n/v, 04/20/17) Penicillins (Verified Allergy, Intermediate, AMOXICILLIN SOB, TACHYCARDIA & HIVES, 04/20/17) Codeine (Verified Allergy, Mild, RASH, 04/20/17) Morphine (Verified Allergy, Mild, ABDOMINAL PAIN,DIARRHEA,HIVES NAUSEA AND VOMITING, 04/20/17) Amoxicillin (Unverified Allergy, Unknown, HIVES,RASH HIGH BP,FAST HEART RATE,DIARRHEA,SOB, 04/20/17) Dust (Unverified Allergy, Unknown, WHEEZING,SOB, 04/20/17) Quadrivalent HPV (6,11,16,18) Recom (Verified Allergy, Unknown, RASH RAPID HEART BEAT, 04/20/17) Acetaminophen (Verified Adverse Reaction, Severe, ELEVATED LFTS WITH MINIMAL DOSES, 04/20/17) Unclassified Drugs (Verified Adverse Reaction, Intermediate, Vicryl Sutures - infection outcome x 2, 04/20/17) PER PATIENT, DEVELOPED INFECTION TWICE FOLLOWING PROCEDURES INVOLVING THE USE OF VICRYL STITCHING Vancomycin (Verified Adverse Reaction, Intermediate, ITCHING,SOB, 04/20/17) Tramadol (Verified Adverse Reaction, Mild, nausea, vomiting, 04/20/17) Home Medications Scheduled Folic Acid (Folvite), 1 MG PO DAILY Hydrochlorothiazide (Hctz), 50 MG PO DAILY Lansoprazole (Prevacid), 30 MG PO QAM Ranitidine (Zantac), 300 MG PO HS Scheduled PRN Albuterol Hfa (Ventolin Hfa), 2 PUFFS INH Q6H PRN for SOB/Wheezing Cyclobenzaprine Hcl (Flexeril), 5 MG PO TID PRN for Muscle Spasms Dicyclomine Hcl (Bentyl), 10-20 MG PO QID PRN for abd pain Family History Diabetes mellitus FH: cancer FH: gallbladder disease FH: heart disease FH: lung disease Hypertension Kidney disease or stones Seizures History of Suicide: No History of Substance Abuse: No Psychiatric History: Yes (mother and sister with depression and anxiety, and thinks multiple family members on mother's side struggle with depression and/or anxiety, including grandmother, aunt, and cousins) Alcohol Use Alcohol Use In Past 12 Months: Yes (drinks one wine cooler every 1-2 months.) Smoking Use Smoking Status: Never Smoker Substance History Denies any history of substance abuse. 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 She is laid off over the summer as they are not working, but will resume in the fall. She has been watching her niece and nephew for income over the summer. Relationship History: other (engaged) Review of Systems 10 systems reviewed; negative except as stated above. Examination Vital Signs Vital Signs Past 12 Hours Date Time Temp Pulse Resp B/P (MAP) Pulse Ox O2 Delivery O2 Flow Rate FiO2 04/21/17 11:42 36.7 67 16 109/67 (81) 97 Room Air 04/21/17 07:49 36.7 75 16 117/76 (90) 97 Room Air 04/21/17 04:00 Room Air 04/21/17 03:07 36.6 52 18 103/53 (70) 97 Room Air 60 110/71 (84) 60 115/76 (89) 04/21/17 00:08 36.8 74 20 141/71 (94) 97 Room Air 04/21/17 00:00 Room Air Laboratory Results Last 24 Hours Test 04/20/17 14:00 04/20/17 14:17 04/20/17 20:33 04/21/17 00:26 White Blood Count 10.34 K/uL Red Blood Count 5.21 M/uL Hemoglobin 14.8 g/dL Hematocrit 44.9 % Mean Corpuscular Volume 86.2 fL Mean Corpuscular Hemoglobin 28.4 pg Mean Corpuscular Hemoglobin Concent 33.0 g/dl Platelet Count 355 K/uL Mean Platelet Volume 9.5 fL Neutrophils (%) (Auto) 70.4 % Lymphocytes (%) (Auto) 21.4 % Monocytes (%) (Auto) 6.8 % Eosinophils (%) (Auto) 0.9 % Basophils (%) (Auto) 0.2 % Neutrophils # (Auto) 7.29 K/uL Lymphocytes # (Auto) 2.21 K/uL Monocytes # (Auto) 0.70 K/uL Eosinophils # (Auto) 0.09 K/uL Basophils # (Auto) 0.02 K/uL RDW Standard Deviation 43.9 fL RDW Coefficient of Variation 14.0 % Immature Granulocyte % (Auto) 0.3 % Immature Granulocyte # (Auto) 0.03 K/uL D-Dimer 530 ug/L FEU Sodium Level 138 mmol/L Potassium Level 3.2 mmol/L Chloride Level 104 mmol/L Carbon Dioxide Level 27 mmol/L Anion Gap 7.0 mmol/L Blood Urea Nitrogen 18 mg/dl Creatinine 0.90 mg/dl Est Creatinine Clear Calc Drug Dose 149.3 ml/min Estimated GFR () 103.0 Estimated GFR (Non- 88.9 BUN/Creatinine Ratio 20.4 Random Glucose 94 mg/dl Calcium Level 9.4 mg/dl Magnesium Level 2.2 mg/dl Total Bilirubin 0.4 mg/dl Aspartate Amino Transf (AST/SGOT) 15 U/L Alanine Aminotransferase (ALT/SGPT) 32 U/L Alkaline Phosphatase 108 U/L Troponin I < 0.015 ng/ml < 0.015 ng/ml < 0.015 ng/ml Total Protein 7.7 gm/dl Albumin 3.9 gm/dl Globulin 3.8 gm/dl Albumin/Globulin Ratio 1.0 Thyroid Stimulating Hormone (TSH) 3.330 uIu/ml Free Thyroxine 1.35 ng/dl Human Chorionic Gonadotropin, Qual NEG Urine Color YELLOW Urine Appearance CLEAR Urine pH 5.5 Urine Specific Rose 1.013 Urine Protein NEG Urine Glucose (UA) NEG Urine Ketones NEG Urine Occult Blood NEG Urine Nitrite NEG Urine Bilirubin NEG Urine Urobilinogen NEG Urine Leukocyte Esterase NEG Urine Opiates Screen NEG Urine Methadone, Qualitative NEG Urine Barbiturates NEG Urine Phencyclidine (PCP) Level NEG Ur Amphetamine/Methamphetamine NEG MDMA (Ecstasy) Screen NEG Urine Benzodiazepines Screen NEG Urine Cocaine Metabolite NEG Urine Marijuana (THC) NEG Test 04/21/17 06:13 04/21/17 08:41 White Blood Count 6.89 K/uL Red Blood Count 4.34 M/uL Hemoglobin 12.3 g/dL Hematocrit 37.9 % Mean Corpuscular Volume 87.3 fL Mean Corpuscular Hemoglobin 28.3 pg Mean Corpuscular Hemoglobin Concent 32.5 g/dl RDW Standard Deviation 45.4 fL RDW Coefficient of Variation 14.1 % Platelet Count 298 K/uL Mean Platelet Volume 9.4 fL Sodium Level 140 mmol/L Potassium Level 3.4 mmol/L Chloride Level 109 mmol/L Carbon Dioxide Level 26 mmol/L Anion Gap 5.0 mmol/L Blood Urea Nitrogen 18 mg/dl Creatinine 0.76 mg/dl Est Creatinine Clear Calc Drug Dose 118.3 ml/min Estimated GFR () 126.4 Estimated GFR (Non- 109.0 BUN/Creatinine Ratio 23.8 Random Glucose 95 mg/dl Calcium Level 8.4 mg/dl Magnesium Level 2.2 mg/dl Bedside Glucose 93 mg/dl Mental Examination During interview pt is: alert and oriented, cooperative Appearance: appropriately dressed, appropriately groomed Eye contact is: good Motor behavior is: no abnormal motor movements Speech: normal in rate, rhythm & volume Affect: mood congruent, euthymic Mood is: other ("good") Thought process: goal directed, linear, logical, clear, coherent Thought content: reality based without delusions Suicidal thought are: denied Homicidal thoughts are: denied Hallucinations: denies auditory, denies visual Cognition: memory grossly intact, attention grossly intact, language grossly intact Intelligence estimated to be: average Insight: good Judgement: good Impression / Recommendations Impression Patient denies all symptoms of depression, but has had some recent anxiety due to financial strain. She does not have adequate symptoms to meet criteria for an anxiety disorder diagnosis, and believes her anxiety is situational and will resolve when she starts her job again next month and has more income. She does not meet criteria for psychiatric diagnosis, and no treatment is required. We did discuss the signs and symptoms of anxiety disorders, and she agrees to contact her family doctor if her symptoms worsen and do not resolve as expected.
--- NOTE | 2017-04-21 14:28 | ELECTROENCEPHALOGRAPH REPORT ---
REQUESTING: Dr. Hermosillo CLINICAL DIAGNOSIS: Recurrent syncopal events of uncertain origin. ELECTROENCEPHALOGRAM DIAGNOSIS: Essentially normal during wakefulness. DESCRIPTION OF TRACING: This EEG was done as a bedside recording and is of excellent technical quality with simultaneous video analysis of patient movement and behavior. Very few muscle and movement artifacts are noted. Photic stimulation is performed. Hyperventilation is not. Drowsiness and light sleep are not clearly recorded. Under these conditions, there is evidence for normal appearing background rhythm in the alpha range of up to 10 Hz of maximum frequency and 30 microvolts of maximum amplitude. This is maximum posterior head regions and bilaterally symmetrical. Polymorphic mid frequency theta activity of modest voltage is seen over all head regions without clear focal or regional predominance. Anterior head region maximum bilaterally symmetrical low voltage fast activity in the beta range is present. Photic stimulation provokes a modest driving response without a photomyogenic or photoparoxysmal component. At no time during the waking tracing is there evidence for potentially epileptogenic activity in the form of polyspike or spike wave bursts, focal sharp waves or focal spikes. INTERPRETATION: This EEG is essentially normal during wakefulness without evidence for focal or generalized encephalopathy and without evidence for potentially epileptogenic activity. MTDD
[2017-04-21] MEDS ORDERED: PERFLUTREN LIPID MICROSPHERE (DEFINITY) IV ONE (15:23)
--- NOTE | 2017-04-21 15:54 | Progress Note ---
Internal Med Progress Note Date of Service: Apr 21, 2017. Provider Documentation: SUBJECTIVE: The patient was seen and examined No episodes overnight but as soon as I left the room , Matias Gautam was called ,no significant cause identified OBJECTIVE: Vital Signs-as noted below Exam: General-No distress at rest Eyes-normal ENT-normal Neck-supple Lungs-clear to ausucltate bilaterally Heart-Regular Abdomen-Benign,no masses,bowel sound present Extremities-no edema Neuro-AAOx3 Lab data as noted below. ASSESSMENT & PLAN: Recurrent syncope and collapse, no definite cause was found on admission No cardiac arrhythmias noted,ECHO -pending Doubt any seizure activity-negative EEG. and Negative. CTA -no Pulmonary embolism Code mandy in hospital as above Neurology and Psychiatry consulted to r/o any relevant causes. Esophageal reflux, Has been on a proton pump inhibitor and H2 david. Continue with those. Recently diagnosed hypothyroidism. TSH is normal. We will continue her thyroid medication as an outpatient. History of migraine with neck pain. Will continue with Toradol IV as needed for pain control. History of deep vein thrombosis, now the D-dimer is elevated, CTA to rule out pulmonary embolism-no PE. Gastrointestinal prophylaxis with Protonix and H2 david. Deep venous thrombosis prophylaxis with sequential compression devices. She cannot use any heparin at this time. Code status - she will be a full code. Vital Signs: Date Time Temp Pulse Resp B/P (MAP) Pulse Ox O2 Delivery O2 Flow Rate FiO2 04/21/17 12:00 Room Air 04/21/17 11:42 36.7 67 16 109/67 (81) 97 Room Air 04/21/17 08:37 81 16 129/80 (96) 99 Room Air 81 04/21/17 08:00 Room Air 04/21/17 07:49 36.7 75 16 117/76 (90) 97 Room Air 04/21/17 04:00 Room Air 04/21/17 03:07 36.6 52 18 103/53 (70) 97 Room Air 60 110/71 (84) 60 115/76 (89) 04/21/17 00:08 36.8 74 20 141/71 (94) 97 Room Air 04/21/17 00:00 Room Air 04/20/17 20:00 Room Air 04/20/17 19:35 36.8 69 16 137/83 97 Room Air 04/20/17 19:22 36.7 73 22 163/74 96 04/20/17 19:19 73 22 163/74 96 04/20/17 18:02 70 20 99 04/20/17 17:52 73 04/20/17 17:32 67 21 98 04/20/17 17:02 67 18 98 04/20/17 16:54 154/70 04/20/17 16:47 149/77 04/20/17 16:32 77 23 100 04/20/17 16:27 73 22 96 04/20/17 15:57 65 22 97 Lab Results: Results Past 24 Hours Test 04/20/17 20:33 04/21/17 00:26 04/21/17 06:13 04/21/17 08:41 Range/Units Troponin I < 0.015 < 0.015 0-0.045 ng/ml White Blood Count 6.89 4.8-10.8 K/uL Red Blood Count 4.34 4.2-5.4 M/uL Hemoglobin 12.3 12.0-16.0 g/dL Hematocrit 37.9 37-47 % Mean Corpuscular Volume 87.3 80-100 fL Mean Corpuscular Hemoglobin 28.3 25-34 pg Mean Corpuscular Hemoglobin Concent 32.5 32-36 g/dl RDW Standard Deviation 45.4 36.4-46.3 fL RDW Coefficient of Variation 14.1 11.5-14.5 % Platelet Count 298 130-400 K/uL Mean Platelet Volume 9.4 7.4-10.4 fL Sodium Level 140 136-145 mmol/L Potassium Level 3.4 3.5-5.1 mmol/L Chloride Level 109 98-107 mmol/L Carbon Dioxide Level 26 21-32 mmol/L Anion Gap 5.0 3-11 mmol/L Blood Urea Nitrogen 18 7-18 mg/dl Creatinine 0.76 0.60-1.20 mg/dl Est Creatinine Clear Calc Drug Dose 118.3 ml/min Estimated GFR () 126.4 Estimated GFR (Non- 109.0 BUN/Creatinine Ratio 23.8 10-20 Random Glucose 95 70-99 mg/dl Calcium Level 8.4 8.5-10.1 mg/dl Magnesium Level 2.2 1.8-2.4 mg/dl Bedside Glucose 93 70-90 mg/dl
--- NOTE | 2017-04-21 17:21 | ECHOCARDIOGRAM REPORT ---
*NOTICE TO RECEIVING REPUBLICAN AGENCY This information is strictly Confidential and protected under [place] law. [place] law prohibits you from making any further disclosure of this information unless further disclosure is expressly permitted by the written consent of the person to whom it pertains or is authorized by law. A general authorization for the release of medical or other information is not sufficient for this purpose. Hospital accepts no responsibility if the information is made available to any other person, INCLUDING THE PATIENT. Interpretation Summary * Name: SPENSER DEAN Study Date: 04/21/2017 02:57 PM BP: 115/76 mmHg * Patient Location: [facility]\S\N289\S\2 HR: 59 * : 1990 (M/d/yyyy) Gender: Female Height: 69 in * Age: 26 yrs Ethnicity: [place] Weight: 326 lb * Ordering Physician: Keshia Hermosillo * Referring Physician: Self, Referred * Performed By: Chiquita Beltrán RCS * * Reason For Study: Syncope * BSA: 2.5 m2 * -- Conclusions -- * The left ventricle is normal in size. * There is normal left ventricular wall thickness. * The left ventricular wall motion is normal. * Left ventricular systolic function is normal. * Ejection Fraction = 50-55%. * There is no significant valvular disease. Procedure Details * A complete two-dimensional transthoracic echocardiogram was performed (2D, M-mode, Doppler and color flow Doppler). Left Ventricle * The left ventricle is normal in size. * There is normal left ventricular wall thickness. * Left ventricular systolic function is normal. * Ejection Fraction = 50-55%. * The left ventricular wall motion is normal. Right Ventricle * The right ventricle is normal in size and function. Atria * The left atrial size is normal. * Right atrial size is normal. * No ASD detected; PFO is not assessed. Mitral Valve * The mitral valve is normal. * There is no mitral valve stenosis. * There is trace mitral regurgitation. Tricuspid Valve * The tricuspid valve is normal. * There is no tricuspid stenosis. * There is trace tricuspid regurgitation. Aortic Valve * The aortic valve is trileaflet. * No hemodynamically significant valvular aortic stenosis. * No aortic regurgitation is present. Pulmonic Valve * The pulmonic valve is not well visualized. Great Vessels * The aortic root is normal size. Pericardium/Pleural * There is no pericardial effusion. Great Vessels * Normal inferior vena cava diameter and respiratory variation suggests normal central venous pressure. MMode 2D Measurements and Calculations IVSd 0.93 cm LVIDd 4.6 cm LVIDs 2.9 cm LVPWd 0.85 cm IVS/LVPW 1.1 FS 37.4 % EDV(Teich) 98.9 ml ESV(Teich) 32.2 ml EF(Teich) 67.5 % EDV(cubed) 99.4 ml ESV(cubed) 24.4 ml EF(cubed) 75.5 % LV mass(C)d 137.8 grams LV mass(C)dI 54.2 grams/m\S\2 SV(Teich) 66.7 ml SI(Teich) 26.2 ml/m\S\2 SV(cubed) 75.0 ml SI(cubed) 29.5 ml/m\S\2 EDV(MOD-sp4) 121.2 ml ESV(MOD-sp4) 58.5 ml EF(MOD-sp4) 51.7 % EDV(MOD-sp2) 141.6 ml ESV(MOD-sp2) 46.3 ml EF(MOD-sp2) 67.3 % SV(MOD-sp4) 62.7 ml SI(MOD-sp4) 24.7 ml/m\S\2 SV(MOD-sp2) 95.3 ml SI(MOD-sp2) 37.5 ml/m\S\2 Doppler Measurements and Calculations MV E max caroline 141.3 cm/sec MV A max caroline 84.1 cm/sec MV E/A 1.7 MV dec time 0.18 sec Ao V2 max 121.3 cm/sec Ao max PG 5.9 mmHg Ao max PG (full) 1.7 mmHg LV V1 max PG 4.2 mmHg LV V1 max 102.8 cm/sec
--- NOTE | 2017-04-21 18:40 | CONSULTATION REPORT ---
DATE OF CONSULTATION: 04/21/2017 HISTORY OF PRESENT ILLNESS: Neema is a 26-year-old white right-handed woman from the [facility] area known to Ronel Hector and admitted to the hospital for evaluation of recurrent syncopal events beginning yesterday in the morning after she awakened, took some of her medications for some neck and left upper shoulder pain and then began to feel lightheaded, shortness of breath and had events of simply passing out. Witnesses who were present in the room described her as being fine, looking well and then suddenly slumping forward and no focal motor activity, generalized convulsive activity or other potentially ictal activity has been noted and there has been no incontinence, frothing at the mouth, etc. She does not feel poorly after awakening from these events and her duration of absence of consciousness is very short. She had a number of these yesterday witnessed by her significant other and she was brought to the ER, she was hemodynamically stable. CAT scans, EKGs, etc. were fine. She was about to leave, then she got dizzy and almost passed out, so she was admitted to the hospital for further assessment. Neurology has been called obviously because of the possibilities of seizures. PAST MEDICAL HISTORY: Does reveal classic migraines, intestinal disaccarhidase , deficiency with chronic diarrhea, hypothyroidism diagnosed recently and with therapy being initiated, esophageal reflux, dysfunctional eustachian tube, allergic rhinitis, obesity and history of DVT. PAST MEDICAL HISTORY: Reveals some arthroscopic surgery in left knee, laparoscopic cholecystectomy, small bowel endoscopy, vein ablation in the right thigh and also on the left. FAMILY HISTORY: Reveals an aunt with diabetes, sister with diabetes, father with a stroke and sleep apnea and paternal grandparents and grandmother did have hypertension. There is a remote family history in first order relative for narcolepsy. In this regard, she has been evaluated for sleep apnea by Dr. Headley, does have significant apnea if she lays on her back, but if she lies on her side is virtually symptom-free and she has not been a candidate for CPAP. ALLERGIES: SHE HAS EXTENSIVE DRUG ALLERGIES TO HEPARIN, BLUEBERRIES, CEFTRIAXONE, OXYCODONE, PENICILLINS, CODEINE, MORPHINE, AMOXICILLIN, DUST, CONTRAST DYE, TYLENOL, Vicryl SUTURES, VANCOMYCIN AND TRAMADOL. CURRENT MEDICATIONS: Include an albuterol inhaler, Flexeril 5 mg 3 times a day, Bentyl 10-20 mg as needed, folic acid 1 mg, hydrochlorothiazide 50 mg daily, Prevacid, ranitidine and she has been taking levothyroxine for the past 3 days. REVIEW OF SYSTEMS: Reveals some recent stress because she is between jobs, but not an excessive amount of anxiety, and psychiatry does not feel she has a significant underlying psychiatric disorder. Otherwise, there have been no new issues referable to the head, eyes, ears, nose and throat, cardiovascular, pulmonary, gastrointestinal, genitourinary, or musculoskeletal systems. She has never had events like this in the past. Her migraine activity has been relatively low. PHYSICAL EXAMINATION: In the ER GENERAL: She was alert, awake, oriented x3. VITAL SIGNS: Indicated a blood pressure of 198/110 dropping down to 160/97, O2 saturations are normal, temperature was 36, pulse was 72. General examination recorded by Dr. Hermosillo was totally normal with the exception of moderate obesity. NEUROLOGIC: Today neurologically she is awake, alert, oriented in 3 spheres. Has normal extraocular movements, normal visual lugo, normal facial motility and strength. Normal facial sensation. Tongue protrudes in the midline. There is no tremor, tics, choreiform activity, drift or pronation sign. Reflexes are 1+ and symmetrical. Toes are down. No Sloane's signs are seen. Strength testing is normal and gross sensation is intact. I did not get her up to walk her in the room, but bedside testing of coordination was quite intact. DATA: Laboratory data has been unremarkable. Imaging studies of the brain have been normal. An EEG more importantly is completely normal. She has had no further episodes since admission. IMPRESSION: Diagnosis here remains unclear. I do not think these are seizures. I do not think this is narcolepsy or excessive daytime sleepiness. These could have been some hypotensive events reflexively mediated by pain, but the frequency of the events is a little alarming. At this point, I am not going to suggest we do any further neurologic testing as an inpatient basis. She probably will need an outpatient EEG and perhaps a 3-day monitoring study if these continue. I am going to suggest she go back and see Dr. Headley for assessment of her sleep disorder and possibly performance of multiple sleep latency test or maintenance of wakefulness test to be sure she does not have underlying narcolepsy. Obviously, she probably should not operate a motor vehicle until she remains asymptomatic for a period of several weeks. I discussed this with her and I think she understands it. We are going to stop by tomorrow and take a look at her if indeed she is still in the hospital, but unless she has further events, I do not see any reason to keep her for further neurological evaluation, though we would be happy to look at her on an outpatient basis, arrange for the EEG and go from there. KELLEN
[2017-04-21] MEDS: CYCLOBENZAPRINE HCL 5 MG TAB PO PRN (20:44)
[2017-04-21] MEDS: RANITIDINE HCL 150 MG TAB PO SCH (20:44)
[2017-04-22] VITALS: O2SAT 98
[2017-04-22 00:17] VITALS: BP 115/70; PULSE 55; TEMP 36.9; O2SAT 98
[2017-04-22 04:00] VITALS: BP 121/77; PULSE 52; TEMP 36.6; O2SAT 97
[2017-04-22 07:31] VITALS: BP 130/74; PULSE 70; TEMP 36.7; O2SAT 98
[2017-04-22] MEDS: PANTOprazole SOD 40 MG TAB PO SCH (08:02)
[2017-04-22] MEDS: HYDROCHLOROTHIAZIDE 50 MG TAB PO SCH (08:02)
[2017-04-22] MEDS: NSS + 20MEQ KCL 1000ML 1,000 ML IV SCH (10:50)
--- NOTE | 2017-04-22 11:36 | Progress Note ---
Internal Med Progress Note Date of Service: Apr 22, 2017. Provider Documentation: SUBJECTIVE: The patient was seen and examined No episodes overnight but as soon as I left the room , Matias Gautam was called ,no significant cause identified Much better this Morning No events last night Wants to go home OBJECTIVE: Vital Signs-as noted below Exam: General-No distress at rest Eyes-normal ENT-normal Neck-supple Lungs-clear to ausucltate bilaterally Heart-Regular Abdomen-Benign,no masses,bowel sound present Extremities-no edema Neuro-AAOx3 Lab data as noted below. ASSESSMENT & PLAN: Recurrent syncope and collapse, no definite cause was found on admission No cardiac arrhythmias noted,ECHO - * The left ventricle is normal in size. * There is normal left ventricular wall thickness. * The left ventricular wall motion is normal. * Left ventricular systolic function is normal. * Ejection Fraction = 50-55%. * There is no significant valvular disease. Doubt any seizure activity-negative EEG. and Negative. CTA -no Pulmonary embolism Code mandy in hospital as above Neurology and Psychiatry consulted -appreciate Input No more recurrence of symptoms Will get Physical therapy Discharge home today Esophageal reflux, Has been on a proton pump inhibitor and H2 david. Continue with those. Recently diagnosed hypothyroidism. TSH is normal. We will continue her thyroid medication as an outpatient. History of migraine with neck pain. Will continue with Toradol IV as needed for pain control. History of deep vein thrombosis, now the D-dimer is elevated, CTA to rule out pulmonary embolism-no PE. Gastrointestinal prophylaxis with Protonix and H2 david. Deep venous thrombosis prophylaxis with sequential compression devices. She cannot use any heparin at this time. Code status - she will be a full code. Discharge home after PT today Vital Signs: Date Time Temp Pulse Resp B/P (MAP) Pulse Ox O2 Delivery O2 Flow Rate FiO2 04/22/17 08:00 Room Air 04/22/17 07:31 36.7 70 16 130/74 (92) 98 Room Air 04/22/17 04:00 36.6 52 121/77 (92) 97 Room Air 04/22/17 00:17 36.9 55 115/70 (85) 98 Room Air 04/22/17 00:00 98 Room Air 04/21/17 20:00 Room Air 04/21/17 19:32 36.7 66 22 143/75 (97) 98 Room Air 04/21/17 16:00 Room Air 04/21/17 15:55 36.8 68 18 139/68 (91) 98 Room Air 04/21/17 12:00 Room Air 04/21/17 11:42 36.7 67 16 109/67 (81) 97 Room Air
--- NOTE | 2017-04-22 14:58 | Discharge Instructions ---
Discharge Instructions Date of Service Apr 22, 2017. Admission Reason for Admission: Syncope And Collapse Discharge Discharge Diagnosis / Problem: Syncopal Episodes-No apparent cause found and condition improved Discharge Goals Goal(s): Prevent Disease Progression Activity Recommendations Activity Limitations: resume your previous activity . Instructions / Follow-Up Instructions / Follow-Up Dr Hector on 04/28/17 at 1:00 PM Current Hospital Diet Patient's current hospital diet: Regular Diet Discharge Diet Recommended Diet: Regular Diet Pending Studies Studies pending at discharge: no Medical Emergencies . Who to Call and When: Medical Emergencies: If at any time you feel your situation is an emergency, please call 911 immediately. . Non-Emergent Contact Non-Emergency issues call your: Primary Care Provider . Past History Medical & Surgical History: (1) Syncope and collapse (2) Obesity (3) Dehydration (4) History of DVT of lower extremity (5) Asthma (6) Left sided chest pain (7) Status post cholecystectomy . "Provider Documentation" section prepared by Keshia Hermosillo. . VTE Core Measure Inpt VTE Proph given/why not?: SCD's
[2017-04-22 15:15] VITALS: BP 130/74; PULSE 70; TEMP 36.7; O2SAT 98
--- NOTE | 2017-04-22 16:31 | PROGRESS NOTE ---
DATE: 04/22/2017 Janeth is leaving today. She has had no further spells. The cause of these recurrent episodes of syncope is likely going to remain unestablished, but unfortunately because she had them, we are going to ask her not to operate a motor vehicle for at least a month. Her EEG was normal but she probably would benefit from an outpatient more prolonged recording with wakefulness and sleep, just to clear the air and she is going to get back to see Dr. Headley and sleep medicine and perhaps be evaluated for potential episodes of narcolepsy like attacks but I frankly feel this is unlikely. I would suggest therefore that she have an appointment made to see me back in the office in about a month. I can review things then and if she has not had any more events, we can get an EEG done. I will probably clear her to go back to operating motor vehicle, but frankly at this time we really do not have enough to turn her license into the State. KELLEN
[2017-04-22] MEDS ORDERED: LEVO75TA5 PO (22:20)
--- NOTE | 2017-04-23 08:00 | Discharge Summary ---
Discharge Summary Date of Service Apr 23, 2017. Discharge Summary Admission Date: Apr 20, 2017 at 17:54 Discharge Date: Apr 22, 2017 Discharge Disposition: Home Principal Diagnosis: Syncopal Episodes-No apparent cause found and condition improved Secondary Diagnoses/Problems: Please see H&P and Hospital Progress note Consultations: Neurology and Psychiatry Medication Reconciliation Continued Medications: Albuterol Hfa (Ventolin Hfa) 200 Puffs/46801 Mcg Aers 2 PUFFS INH Q6H PRN for SOB/Wheezing, #1 INHALER Cyclobenzaprine Hcl (Flexeril) 5 Mg Tab 5 MG PO TID PRN for Muscle Spasms, TAB PRN Dicyclomine Hcl (Bentyl) 10 Mg Cap 10-20 MG PO QID PRN for abd pain, CAP Folic Acid (Folvite) 1 Mg Tab 1 MG PO DAILY, TAB Hydrochlorothiazide (Hctz) 50 Mg Tab 50 MG PO DAILY, TAB Lansoprazole (Prevacid) 30 Mg Cap 30 MG PO QAM, CAP Ranitidine (Zantac) 300 Mg Tab 300 MG PO HS, TAB Admission Information HPI (per Admitting provider): DATE OF ADMISSION: 04/20/2017 PRIMARY CARE PHYSICIAN: Dr. Ronel Hector. CHIEF COMPLAINT: Recurrent syncopal episode since this morning. HISTORY OF PRESENT COMPLAINT: She is a 26-year-old female with significant past medical history including migraine, chronic diarrhea, hypothyroidism, esophageal reflux, dysfunction of eustachian tube, allergic rhinitis, obesity, apparently has been complaining of recurrent syncope since this morning. She feels lightheaded with dizziness and feels her heart is racing. She gets shortness of breath and loses consciousness, according to the family members and the fiance. It has been going on off and on. She is out from anywhere between a few seconds to minutes, but she can be awakened with shaking and calling her names. There is no history of numbness or tingling or any weakness involving any side, before the episode. No history of palpitations before the episode and no fever, chills or rigors. No injury from syncope or no self injury. No rolling of the eyes and no history of incontinence and/or frothing from the mouth. She does not feel generally weak and lethargic following any of the episodes. 911 was called and she was brought into the Emergency Room. In the ER, she was hemodynamically stable. Her apparent test including CAT scan, x-rays, EKG and blood test came out to be unremarkable. She was about to leave, but she got very dizzy on standing and from that point, internal medicine consulted and she is going to be in the hospital for observation. PAST MEDICAL HISTORY: Significant for classic migraine, intestinal disaccharidase deficiency with chronic diarrhea, hypothyroidism diagnosed recently, esophageal reflux, history of dysfunction of the eustachian tube, allergic rhinitis, obesity, and history of DVT. PAST SURGICAL HISTORY: Significant for arthro surgery of the left knee, laparoscopic cholecystectomy, small bowel endoscopy, vein ablation of the right thigh and also on the left side. FAMILY HISTORY: Aunt has diabetes. Sister has diabetes. Father had a stroke and sleep apnea. Maternal grandparent and grandmother did have hypertension. SOCIAL HISTORY: She is single. She lives with her fiance. She has 1 child. She does not smoke, drinks occasionally, and she has been reasonably ambulant. ALLERGIES: SHE IS ALLERGIC TO MANY MEDICATIONS INCLUDING HEPARIN, BLUEBERRY, CEFTRIAXONE, OXYCODONE, PENICILLINS, CODEINE, MORPHINE, AMOXICILLIN, DUST, CONTRAST DYE, TYLENOL, VICRYL SUTURES, VANCOMYCIN AND TRAMADOL. MEDICATIONS: As an outpatient, she has been taking albuterol inhaler as needed, Flexeril 5 mg 3 times daily, Bentyl 10-20 mg as directed, folic acid 1 mg daily, hydrochlorothiazide 50 mg daily, Prevacid 30 mg daily, and ranitidine 300 mg at nighttime. She has been taking levothyroxine 75 mcg for the last 3 days. REVIEW OF SYSTEMS: Other systemic review unremarkable except those mentioned in history of present illness. PHYSICAL EXAMINATION: GENERAL: In the Emergency Room, she was not having any acute distress. VITAL SIGNS: Temperature 36.7, pulse of 72; blood pressure initially high 198/110, it came down to 160/97; saturation 96% on room air. HEENT: Unremarkable. NECK: Supple. No JVD, no bruit. CHEST: Clear to auscultate bilaterally. HEART: S1, S2 regular. ABDOMEN: Soft, benign, nontender, no organomegaly. Bowel sounds present. EXTREMITIES: 1+ edema bilaterally. CENTRAL NERVOUS SYSTEM: She was alert, awake, oriented x3. No focal sensory and/or motor deficit appreciated. LABORATORY DATA: Noted today white count was 10.34, H&H 14.8/44.9, platelet was 355. Sodium 138, potassium 3.2, chloride 104, carbon dioxide 27, BUN 18, creatinine 0.90, random glucose 94; calcium 9.4. LFTs unremarkable. Troponin less than 0.015. TSH was 3.30. HCG negative. D-dimer of 530. Toxic screen negative. Urine was negative too. IMAGING DATA: Chest x-ray, no acute cardiopulmonary disease. CT of the head - no acute intracranial pathology. Cervical spine CT, no fracture within the cervical spine. EKG was in sinus rhythm, rate of 58 per minute, normal axis and no significant ST-T wave abnormality. IMPRESSION AND PLAN: 1. Recurrent syncope and collapse, no definite cause was found at this time but to rule out cardiac arrhythmias. Doubt any seizure activity. No infective process at this time and doubt any neurologic events as well. She will be admitted to telemetry unit for observation. We will monitor the patient in the hospital. Neuro examination q. shift. We will give IV fluids with potassium supplement and give symptomatic medication while in the hospital.CTA to rule out Pulmonary Embolism. 2. Esophageal reflux, has been on a proton pump inhibitor and H2 david. Continue with those. 3. Recently diagnosed hypothyroidism. TSH is normal. We will continue her thyroid medication as an outpatient. 4. History of migraine with neck pain. Will continue with Toradol IV as needed for pain control. 4. History of deep vein thrombosis, now the D-dimer is elevated, CTA to rule out pulmonary embolism. 5. Gastrointestinal prophylaxis with Protonix and H2 david. 6. Deep venous thrombosis prophylaxis with sequential compression devices. She cannot use any heparin at this time. 7. Code status - she will be a full code. In my clinical judgment, the beneficiary meets criteria as per CMS for 2-midnight stay in the hospital. Hospital Course Recurrent syncope and collapse, no definite cause was found on admission No cardiac arrhythmias noted,ECHO - * The left ventricle is normal in size. * There is normal left ventricular wall thickness. * The left ventricular wall motion is normal. * Left ventricular systolic function is normal. * Ejection Fraction = 50-55%. * There is no significant valvular disease. Doubt any seizure activity-negative EEG. and Negative. CTA -no Pulmonary embolism Code galvan in hospital as above Neurology and Psychiatry consulted -appreciate Input No more recurrence of symptoms Will get Physical therapy Discharge home today Esophageal reflux, Has been on a proton pump inhibitor and H2 david. Continue with those. Recently diagnosed hypothyroidism. TSH is normal. We will continue her thyroid medication as an outpatient. History of migraine with neck pain. Will continue with Toradol IV as needed for pain control. History of deep vein thrombosis, now the D-dimer is elevated, CTA to rule out pulmonary embolism-no PE. Gastrointestinal prophylaxis with Protonix and H2 david. Deep venous thrombosis prophylaxis with sequential compression devices. She cannot use any heparin at this time. Code status - she will be a full code. Discharge home after PT today Total time spent on discharge = 35 minutes This includes examination of the patient, discharge planning, medication reconciliation, and communication with other providers. Discharge Instructions Date of Service Apr 22, 2017. Admission Reason for Admission: Syncope And Collapse Discharge Discharge Diagnosis / Problem: Syncopal Episodes-No apparent cause found and condition improved Discharge Goals Goal(s): Prevent Disease Progression Activity Recommendations Activity Limitations: resume your previous activity . Instructions / Follow-Up Instructions / Follow-Up Dr Hector on 04/28/17 at 1:00 PM Current Hospital Diet Patient's current hospital diet: Regular Diet Discharge Diet Recommended Diet: Regular Diet Pending Studies Studies pending at discharge: no Medical Emergencies . Who to Call and When: Medical Emergencies: If at any time you feel your situation is an emergency, please call 911 immediately. . Non-Emergent Contact Non-Emergency issues call your: Primary Care Provider . Past History Medical & Surgical History: (1) Syncope and collapse (2) Obesity (3) Dehydration (4) History of DVT of lower extremity (5) Asthma (6) Left sided chest pain (7) Status post cholecystectomy . "Provider Documentation" section prepared by Keshia Hermosillo. . VTE Core Measure Inpt VTE Proph given/why not?: SCD's <Electronically signed by Keshia Hermosillo M.D.> Signed: 04/22/17 [id number] Additional Copies To Ronel Hector,DO
[2017-06-14] MEDS ORDERED: MTR600X PO (15:26)
== END 2017-04-22 15:58 | disposition home or self-care (01) ==
LOC: EDBD 13:27 → C.EDB 13:28 → C.MED 17:54 → INTOOBSV 17:54 → ENRESERV 18:12
PROVIDERS: ADMIT Internal Medicine; ATTEND Internal Medicine
DX: R55 Syncope and collapse (principal); R07.9 Chest pain, unspecified; J45.909 Unspecified asthma, uncomplicated; K21.9 Gastro-esophageal reflux disease without esophagitis; Z86.718 Personal history of other venous thrombosis and embolism; E03.9 Hypothyroidism, unspecified; Z90.49 Acquired absence of other specified parts of digestive tract; Z82.49 Family history of ischemic heart disease and other diseases of the circulatory system; Z84.1 Family history of disorders of kidney and ureter; Z82.0 Family history of epilepsy and other diseases of the nervous system; E66.9 Obesity, unspecified; Z83.3 Family history of diabetes mellitus

== ENCOUNTER 2017-04-22 21:51 | Observation (INO) | payer OTHER ==
[~2017-04-22] VITALS: Ht 175.3 cm; Wt 146.3 kg
[~2017-04-22 21:51] MED LIST changes: -DIAZ-165 PO; +FOLI1TAB7 PO; +HYDR50TA3 PO; -OXYC1TAB3 PO; +RANI300T2 PO
[2017-04-22] MEDS ORDERED: LEVO75TA5 PO (22:20)
--- NOTE | 2017-04-22 22:39 | EMERGENCY ROOM VISIT NOTE ---
History Report prepared by Iraida: Barney Barakat Under the Supervision of: Dr. Araceli Bearden D.O. First contact with patient: 21:54 Chief Complaint: CHEST PAIN Stated Complaint: CHEST PAIN Nursing Triage Summary: Patient arrived via ALS from home. Patient was d/c'd from [facility] today at 1600 after being admitted Tuesday for the same thing. Patient c/o dizziness and facial numbness. Per EMS patient has spells of facial numbness and lightheadedness followed by a syncopal episode. When she wakes back up she c/o chest pain, left sided neck pain and head pain. Patients states, "it is the same as when she came on Tuesday". History of Present Illness The patient is a 26 year old female who presents to the Emergency Room with complaints of constant chest pain that started five hours ago. She rates her pain as an 8/10 in severity and describes it as a burning, pressure, tightness, and pain sensation. She states that she started to experience dizziness, chest pain, nausea, neck pain, and lightheadedness two days ago, which prompted her to visit the ED. The patient reports that she was admitted to the hospital and had CT scans, x rays, MRI, EEG, and an ultrasound done. She states that she had no significant results and was discharged home today at 1600. The patient states that her symptoms were still mild, but she was able to ambulate. She states that she was able to go to the yard sale, give her daughter a bath, and put some things away. The patient states that she started to experience facial numbness and her chest pain again. The patient is accompanied by her boyfriend who states that she started shaking in her hands and experienced a syncopal episode, which prompted him and the patient's mother to call the ambulance. She reports that when she woke up, she started to experience a headache, chest pain , and left sided neck pain. Her boyfriend states that he tried to give her a sternal rub to alleviate symptoms. The patient also reports recent mild CVA tenderness. She reports that she has a history of blood clots, including two in groin following a surgery and two in her calves. The patient admits to a history of sleep apnea, which she experiences only when she sleeps on her back, and a family history of seizures. The patient denies any urinary symptoms, fevers, and abnormal eating. Source of History: patient, spouse/significant other Onset: five hours ago Position: chest Symptom Intensity: 8/10 Quality: pressure, burning, other (tightness) Timing: constant Associated Symptoms: + LOC, + headache, + neck pain, No fevers, No urinary symptoms Review of Systems See HPI for pertinent positives & negatives. A total of 10 systems reviewed and were otherwise negative. Past Medical & Surgical Medical Problems: (1) Asthma (2) GERD (gastroesophageal reflux disease) (3) History of DVT of lower extremity (4) Hypothyroidism (5) Migraine headache (6) Obesity Surgical Problems: (1) Status post cholecystectomy Family History Diabetes mellitus FH: cancer FH: gallbladder disease FH: heart disease FH: lung disease Hypertension Kidney disease or stones Seizures Social History Smoking Status: Never Smoker Alcohol Use: other Drug Use: none Marital Status: single Housing Status: lives with family Occupation Status: employed Current/Historical Medications Scheduled Folic Acid (Folvite), 1 MG PO DAILY Hydrochlorothiazide (Hctz), 50 MG PO DAILY Lansoprazole (Prevacid), 30 MG PO QAM Levothyroxine Sodium (Levothyroxine Sodium), 75 MCG PO DAILY Ranitidine (Zantac), 300 MG PO HS Scheduled PRN Albuterol Hfa (Ventolin Hfa), 2 PUFFS INH Q6H PRN for SOB/Wheezing Cyclobenzaprine Hcl (Flexeril), 5 MG PO TID PRN for Muscle Spasms Dicyclomine Hcl (Bentyl), 10-20 MG PO QID PRN for abd pain Allergies Coded Allergies: Heparin (Verified Allergy, Severe, CELLULITIS AT INJECTION SITES, 04/22/17) Blueberry (Verified Allergy, Intermediate, HIVES, 04/22/17) Ceftriaxone (Verified Allergy, Intermediate, itching,HIVES, 04/22/17) Cephalexin (Verified Allergy, Intermediate, ittchy, 04/22/17) Oxycodone (Verified Allergy, Intermediate, hives n/v, 04/22/17) Penicillins (Verified Allergy, Intermediate, AMOXICILLIN SOB, TACHYCARDIA & HIVES, 04/22/17) Codeine (Verified Allergy, Mild, RASH, 04/22/17) Morphine (Verified Allergy, Mild, ABDOMINAL PAIN,DIARRHEA,HIVES NAUSEA AND VOMITING, 04/22/17) Amoxicillin (Unverified Allergy, Unknown, HIVES,RASH HIGH BP,FAST HEART RATE,DIARRHEA,SOB, 04/22/17) Dust (Unverified Allergy, Unknown, WHEEZING,SOB, 04/22/17) Quadrivalent HPV (6,11,16,18) Recom (Verified Allergy, Unknown, RASH RAPID HEART BEAT, 04/22/17) Acetaminophen (Verified Adverse Reaction, Severe, ELEVATED LFTS WITH MINIMAL DOSES, 04/22/17) Unclassified Drugs (Verified Adverse Reaction, Intermediate, Vicryl Sutures - infection outcome x 2, 04/22/17) PER PATIENT, DEVELOPED INFECTION TWICE FOLLOWING PROCEDURES INVOLVING THE USE OF VICRYL STITCHING Vancomycin (Verified Adverse Reaction, Intermediate, ITCHING,SOB, 04/22/17) Tramadol (Verified Adverse Reaction, Mild, nausea, vomiting, 04/22/17) Physical Exam Vital Signs Date Time Temp Pulse Resp B/P (MAP) Pulse Ox O2 Delivery O2 Flow Rate FiO2 04/23/17 01:15 75 23 97 04/23/17 01:10 78 27 97 04/23/17 01:02 115/65 04/23/17 00:40 65 23 97 04/23/17 00:31 133/71 04/23/17 00:10 75 28 95 04/23/17 00:05 74 28 94 04/23/17 00:02 106/65 04/22/17 23:35 94 14 93 04/22/17 23:31 79 27 142/67 96 Room Air 04/22/17 22:05 74 04/22/17 22:04 97 Room Air 04/22/17 22:04 97 Room Air 04/22/17 22:04 36.8 79 24 146/74 97 Room Air Physical Exam GENERAL: obese, alert, well appearing, well nourished, no distress, non-toxic EYE EXAM: normal conjunctiva, PERRL and EOM's grossly intact OROPHARYNX: no exudate, no erythema, lips, buccal mucosa, and tongue normal and mucous membranes are moist NECK: supple, no nuchal rigidity, no adenopathy, non-tender LUNGS: Clear to auscultation. Normal chest wall mechanics HEART: no murmurs, S1 normal and S2 normal CHEST: mild discomfort, mild ecchymosis secondary to sternal rubbing. ABDOMEN: abdomen soft, non-tender, normo-active bowel sounds, no masses, no rebound or guarding. BACK: Back is symmetrical on inspection and there is no deformity, no midline tenderness, no CVA tenderness. SKIN: no rashes and no bruising UPPER EXTREMITIES: upper extremities are grossly normal. LOWER EXTREMITIES: No pitting edema. NEURO EXAM: Normal sensorium, cranial nerves II-XII grossly intact, normal speech, no gross weakness of arms, no gross weakness of legs. No drift. Finger to nose intact. Gross sensation intact. Medical Decision & Procedures ER Provider Diagnostic Interpretation: A One view upright portable xray was read and interpreted by me: No cardiomegaly, no wide medial sternum, no focal infiltrate, no pleural effusion. Laboratory Results 04/22/17 22:20 Red Blood Count 4.53, Mean Corpuscular Volume 88.5, Mean Corpuscular Hemoglobin 29.4, Mean Corpuscular Hemoglobin Concent 33.2, Mean Platelet Volume 10.0, Neutrophils (%) (Auto) 69.8, Lymphocytes (%) (Auto) 21.4, Monocytes (%) (Auto) 5.9, Eosinophils (%) (Auto) 2.5, Basophils (%) (Auto) 0.2, Neutrophils # (Auto) 7.56, Lymphocytes # (Auto) 2.32, Monocytes # (Auto) 0.64, Eosinophils # (Auto) 0.27, Basophils # (Auto) 0.02 04/22/17 22:20 Test 04/22/17 22:20 04/22/17 22:45 White Blood Count 10.83 K/uL (4.8-10.8) Red Blood Count 4.53 M/uL (4.2-5.4) Hemoglobin 13.3 g/dL (12.0-16.0) Hematocrit 40.1 % (37-47) Mean Corpuscular Volume 88.5 fL (80-100) Mean Corpuscular Hemoglobin 29.4 pg (25-34) Mean Corpuscular Hemoglobin Concent 33.2 g/dl (32-36) Platelet Count 340 K/uL (130-400) Mean Platelet Volume 10.0 fL (7.4-10.4) Neutrophils (%) (Auto) 69.8 % Lymphocytes (%) (Auto) 21.4 % Monocytes (%) (Auto) 5.9 % Eosinophils (%) (Auto) 2.5 % Basophils (%) (Auto) 0.2 % Neutrophils # (Auto) 7.56 K/uL (1.4-6.5) Lymphocytes # (Auto) 2.32 K/uL (1.2-3.4) Monocytes # (Auto) 0.64 K/uL (0.11-0.59) Eosinophils # (Auto) 0.27 K/uL (0-0.5) Basophils # (Auto) 0.02 K/uL (0-0.2) RDW Standard Deviation 46.0 fL (36.4-46.3) RDW Coefficient of Variation 14.0 % (11.5-14.5) Immature Granulocyte % (Auto) 0.2 % Immature Granulocyte # (Auto) 0.02 K/uL (0.00-0.02) Anion Gap 8.0 mmol/L (3-11) Est Creatinine Clear Calc Drug Dose 135.3 ml/min Estimated GFR () 90.7 Estimated GFR (Non- 78.2 BUN/Creatinine Ratio 17.2 (10-20) Calcium Level 9.2 mg/dl (8.5-10.1) Magnesium Level 2.1 mg/dl (1.8-2.4) Total Bilirubin 0.3 mg/dl (0.2-1) Aspartate Amino Transf (AST/SGOT) 13 U/L (15-37) Alanine Aminotransferase (ALT/SGPT) 28 U/L (12-78) Alkaline Phosphatase 109 U/L (45-117) Troponin I < 0.015 ng/ml (0-0.045) Total Protein 7.1 gm/dl (6.4-8.2) Albumin 3.5 gm/dl (3.4-5.0) Globulin 3.6 gm/dl (2.5-4.0) Albumin/Globulin Ratio 1.0 (0.9-2) Thyroid Stimulating Hormone (TSH) 7.780 uIu/ml (0.300-4.500) Lyme Disease IgG Antibody NEG (NEG) Lyme Disease IgM Antibody NEG (NEG) Monoscreen NEG (NEG) Urine Color YELLOW Urine Appearance CLEAR (CLEAR) Urine pH 5.5 (4.5-7.5) Urine Specific Mary[place] 1.015 (1.000-1.030) Urine Protein NEG (NEG) Urine Glucose (UA) NEG (NEG) Urine Ketones NEG (NEG) Urine Occult Blood NEG (NEG) Urine Nitrite NEG (NEG) Urine Bilirubin NEG (NEG) Urine Urobilinogen NEG (NEG) Urine Leukocyte Esterase SMALL (NEG) Urine WBC (Auto) 5-10 /hpf (0-5) Urine RBC (Auto) 0-4 /hpf (0-4) Urine Hyaline Casts (Auto) 0 /lpf (0-5) Urine Epithelial Cells (Auto) >30 /lpf (0-5) Urine Bacteria (Auto) NEG (NEG) Laboratory results per my review. Medications Administered Medications (Trade) Dose Ordered Sig/Lesvia Route Start Time Stop Time Status Last Admin Dose Admin Fentanyl Citrate (Fentanyl Inj) 100 mcg NOW STAT IV 04/22/17 23:16 04/22/17 23:20 DC 04/22/17 23:27 100 MCG Ondansetron HCl (Zofran 8mg Iv) 8 mg NOW STAT IV 04/22/17 23:45 04/22/17 23:46 DC 04/23/17 00:11 8 MG ECG Indication: chest pain Rate (beats per minute): 76 Rhythm: sinus rhythm Findings: no acute ischemic change, no ectopy, other (Normal axis and intervals ) ED Course 2219: The patient was evaluated in room C06. A complete history and physical exam was performed. 2235: I reviewed the patient's EMR and previous admission. She was seen by psychiatry, but had no no diagnoses. She had a normal EEG and echo. 2301:Tylenol Tab 1000 mg PO. 2316: Fentanyl Injection 100 mcg IV. 2345: Ondansetron HCl 8 mg IV. 0020: I reevaluated the patient and she is doing well. She would like to go home , but her boyfriend and mother would like her to be admitted. 0048: I discussed the patients case with Dr. Seay, [facility] Hospitalist. He understands the patients condition and agrees to accept the patient. The patient will be further evaluated. Medical Decision The differential diagnosis includes but is not limited to: etiologies such as vasovagal event, infection, hypoglycemia, electrolyte abnormalities, cardiac sources, intracerebral event, toxicologic, neurologic, as well as others were entertained. Pt well appearing here despite complaints. Spent significant time reviewing recent admission and evaluation. Pt just discharged and had a recurrent of similar episode. Pt well appearing here. Did not feel warranted repeat CT imaging. Pt requesting IV dilaudid at bedside. Pt previously seen by psych during admission. Discussed with hospitalist for admission. Possible component of secondary gain. Pt stable while in the ER. Unclear if perhaps needs additional evaluation for possible partial seizures. No evidence of bacteremia/sepsis, doubt dysrhythmia/acs. No GI or complaints. No evidence of DKA. Mild TSH elevation however hx of thyroid dysfunction and pt states hasn 't meds in 2 days either. Medication Reconcilliation Current Medication List: was personally reviewed by me Blood Pressure Screening Patient's blood pressure: Elevated blood pressure Blood pressure disposition: Elevated BP felt to be situational Consults Time Called: 47 Consulting Physician: Dr. Seay, [facility] Hospitalist Returned Call: 47 47: I discussed the patients case with Dr. Seay, [facility] Hospitalist. He understands the patients condition and agrees to accept the patient. The patient will be further evaluated. Impression Primary Impression: Substernal precordial chest pain Additional Impressions: Syncope Seizure-like activity Scribe Attestation The scribe's documentation has been prepared under my direction and personally reviewed by me in its entirety. I confirm that the note above accurately reflects all work, treatment, procedures, and medical decision making performed by me. Departure Information Dispostion Being Evaluated By Hospitalist Referrals Ronel Hector DO (PCP) Patient Instructions My [facility] Problem Qualifiers Additional Impressions: Syncope Syncope type: unspecified Qualified Codes: R55 - Syncope and collapse
[2017-04-22 22:46] LABS: BASO % 0.2 %; BASO ABS # 0.02 K/uL (0-0.2); COMPLETE YES; EOS % 2.5 %; HEMATOCRIT 40.1 % (37-47); IG% 0.2 %; LYMPH % 21.4 %; LYMPH ABS # 2.32 K/uL (1.2-3.4); MEAN CELL VOLUME 88.5 fL (80-100); MEAN CORPUSCULAR HEMOGLOBIN 29.4 pg (25-34); MEAN CORPUSCULAR HGB CONC 33.2 g/dl (32-36); MONO % 5.9 %; NEUT % 69.8 %; PLATELET COUNT 340 K/uL (130-400); RED BLOOD COUNT 4.53 M/uL (4.2-5.4); WHITE BLOOD COUNT 10.83 K/uL (4.8-10.8)
[2017-04-22 22:53] LABS: ALT/SGPT 28 U/L (12-78); AST/SGOT 13 U/L (15-37); BLOOD UREA NITROGEN 17 mg/dl (7-18); BUN/CREATININE RATIO 17.2 (10-20); CALCIUM 9.2 mg/dl (8.5-10.1); CARBON DIOXIDE 27 mmol/L (21-32); CHLORIDE 107 mmol/L (98-107); GLUCOSE 97 mg/dl (70-99); MAGNESIUM 2.1 mg/dl (1.8-2.4); POTASSIUM 3.5 mmol/L (3.5-5.1); SODIUM 142 mmol/L (136-145)
[2017-04-22 22:59] LABS: URINE APPEARANCE CLEAR (CLEAR); URINE BILIRUBIN NEG (NEG); URINE COLOR YELLOW; URINE EPITHELIAL CELL AUTO >30 /lpf (0-5); URINE NITRITE NEG (NEG); URINE PH 5.5 (4.5-7.5); URINE SPECIFIC GRAVITY 1.015 (1.000-1.030); UROBILINOGEN NEG (NEG); ZZUR CULT IF INDIC CLEAN CATCH NO
[2017-04-22] MEDS ORDERED: ACETAMINOPHEN 500 MG TAB PO STA (23:01)
[2017-04-22 23:04] LABS: MANUAL MICROSCOPIC REQUIRED? NO; REVIEW REQ? NO
[2017-04-22 23:04] LABS: ALKALINE PHOSPHATASE 109 U/L (45-117)
[2017-04-22] MEDS ORDERED: FENTANYL CITRATE INJ 50 MCG/1 ML 2 ML VIAL IV STA (23:16)
[2017-04-22] MEDS ORDERED: ONDANSETRON 8 MG/54 ML D5W IV STA (23:45)
[2017-04-23] VITALS (8 sets, daily range): BP systolic 96–142; BP diastolic 50–82; PULSE 52–101; TEMP 36.6–36.8; O2SAT 96–98; Ht 175.3 cm; Wt 146.3 kg
[2017-04-23] MEDS ORDERED: KETOROLAC TROMETHAMINE 30 MG/ML VIAL IV PRN (01:15)
[2017-04-23] MEDS ORDERED: RANITIDINE HCL 150 MG TAB PO ONE (01:48)
[2017-04-23] MEDS ORDERED: DICYCLOMINE HCL 10 MG CAP PO PRN (02:00)
[2017-04-23] MEDS ORDERED: ALBUTEROL HFA 8 GM INHALER INH PRN (02:00)
--- NOTE | 2017-04-23 02:21 | History and Physical ---
History & Physical Date & Time of Service: Apr 23, 2017 at ~ 01:00 . Chief Complaint: chest pain, facial numbness, passed out . Primary Care Physician: Ronel Hector DO . History of Present Illness Source: patient, family, clinic records, hospital records 26 [address] female followed by Dr[address] Hector. History of migraine headaches, GERD, and other problems noted below. Hospitalized at [facility] from 04/20/17 with chest pain and syncope. Neurology and Psychiatry were consulted. Acute myocardial infarction ruled out. No arrhythmias noted on cardiac monitoring. Echocardiogram did not show any significant abnormalities. CT of chest negative for pulmonary embolism. CT of head negative. EEG unremarkable. Patient was discharged to home yesterday afternoon. She continued to have mild chest pain and lightheadedness which had been continuous since 04/20. Attended a [employer] sale / picnic. Around 8 PM she was sitting on a couch and felt racing of her heart, worsening chest pain, lightheadedness, dizziness. Chest pain described as left parasternal burning that did not radiate. She subsequently developed headache, neck pain, facial numbness, and then lost consciousness. Her states that she was difficult to arouse for about 30 minutes. No apparent seizure activity, tongue biting, incontinence. Brought to the emergency room where she continued to have chest discomfort and nausea. Received fentanyl and ondansetron with some relief. . Past Medical/Surgical History Medical Problems: (1) Asthma Status: Chronic (2) GERD (gastroesophageal reflux disease) Status: Chronic (3) History of DVT of lower extremity Status: Chronic (4) Hypothyroidism Status: Resolved (5) Migraine headache Status: Chronic (6) Obesity Status: Chronic Surgical Problems: (1) Status post cholecystectomy Status: Chronic Family History Diabetes mellitus FH: cancer FH: gallbladder disease FH: heart disease FH: lung disease Hypertension Kidney disease or stones Seizures Social History Smoking Status: Never Smoker Drug Use: none Marital Status: single Housing status: lives with family Occupational Status: employed Immunizations History of Influenza Vaccine: No History of Tetanus Vaccine?: Yes History of Pneumococcal: No History of Hepatitis B Vaccine: No Multi-Drug Resistant Organisms History of MDRO: No Allergies Coded Allergies: Heparin (Verified Allergy, Severe, CELLULITIS AT INJECTION SITES, 04/22/17) Blueberry (Verified Allergy, Intermediate, HIVES, 04/22/17) Ceftriaxone (Verified Allergy, Intermediate, itching,HIVES, 04/22/17) Cephalexin (Verified Allergy, Intermediate, ittchy, 04/22/17) Oxycodone (Verified Allergy, Intermediate, hives n/v, 04/22/17) Penicillins (Verified Allergy, Intermediate, AMOXICILLIN SOB, TACHYCARDIA & HIVES, 04/22/17) Codeine (Verified Allergy, Mild, RASH, 04/22/17) Morphine (Verified Allergy, Mild, ABDOMINAL PAIN,DIARRHEA,HIVES NAUSEA AND VOMITING, 04/22/17) Amoxicillin (Unverified Allergy, Unknown, HIVES,RASH HIGH BP,FAST HEART RATE,DIARRHEA,SOB, 04/22/17) Dust (Unverified Allergy, Unknown, WHEEZING,SOB, 04/22/17) Quadrivalent HPV (6,11,16,18) Recom (Verified Allergy, Unknown, RASH RAPID HEART BEAT, 04/22/17) Acetaminophen (Verified Adverse Reaction, Severe, ELEVATED LFTS WITH MINIMAL DOSES, 04/22/17) Unclassified Drugs (Verified Adverse Reaction, Intermediate, Vicryl Sutures - infection outcome x 2, 04/22/17) PER PATIENT, DEVELOPED INFECTION TWICE FOLLOWING PROCEDURES INVOLVING THE USE OF VICRYL STITCHING Vancomycin (Verified Adverse Reaction, Intermediate, ITCHING,SOB, 04/22/17) Tramadol (Verified Adverse Reaction, Mild, nausea, vomiting, 04/22/17) Home Medications Scheduled Folic Acid (Folvite), 1 MG PO DAILY Hydrochlorothiazide (Hctz), 50 MG PO DAILY Lansoprazole (Prevacid), 30 MG PO QAM Levothyroxine Sodium (Levothyroxine Sodium), 75 MCG PO DAILY Ranitidine (Zantac), 300 MG PO HS Scheduled PRN Albuterol Hfa (Ventolin Hfa), 2 PUFFS INH Q6H PRN for SOB/Wheezing Cyclobenzaprine Hcl (Flexeril), 5 MG PO TID PRN for Muscle Spasms Dicyclomine Hcl (Bentyl), 10-20 MG PO QID PRN for abd pain Review of Systems As noted above in history of present illness. . Physical Exam Vital Signs Date Time Temp Pulse Resp B/P (MAP) Pulse Ox O2 Delivery O2 Flow Rate FiO2 04/23/17 01:15 75 23 97 04/23/17 01:10 78 27 97 04/23/17 01:02 115/65 04/23/17 00:40 65 23 97 04/23/17 00:31 133/71 04/23/17 00:10 75 28 95 04/23/17 00:05 74 28 94 04/23/17 00:02 106/65 04/22/17 23:35 94 14 93 04/22/17 23:31 79 27 142/67 96 Room Air 04/22/17 22:05 74 04/22/17 22:04 97 Room Air 04/22/17 22:04 97 Room Air 04/22/17 22:04 36.8 79 24 146/74 97 Room Air General Appearance: WD/WN, no apparent distress Head: normocephalic, atraumatic Eyes: normal inspection, PERRL, EOMI, sclerae normal ENT: normal ENT inspection, hearing grossly normal, pharynx normal Neck: supple, no adenopathy, thyroid normal, trachea midline Respiratory/Chest: lungs clear, no respiratory distress, no accessory muscle use Cardiovascular: regular rate, rhythm, no edema, no gallop, no JVD, no murmur, normal peripheral pulses, + pertinent finding (no rub; + parasteranal chest wall tenderness to light pressure) Abdomen/GI: normal bowel sounds, non tender, soft, no organomegaly, no pulsatile mass Extremities/Musculoskelatal: normal inspection, no calf tenderness, no pedal edema Neurologic/Psych: chemist physical II-XII nml as tested (PERRL, EOMI, no facial palsy, no dysarthria), no motor/sensory deficits (motor strength 5/5 bilat), alert, normal reflexes, oriented x 3 Skin: normal color, warm/dry, no rash Lymphatic: no adenopathy Diagnostics Laboratory Results Results Past 24 Hours Test 04/22/17 22:20 04/22/17 22:45 Range/Units White Blood Count 10.83 4.8-10.8 K/uL Red Blood Count 4.53 4.2-5.4 M/uL Hemoglobin 13.3 12.0-16.0 g/dL Hematocrit 40.1 37-47 % Mean Corpuscular Volume 88.5 80-100 fL Mean Corpuscular Hemoglobin 29.4 25-34 pg Mean Corpuscular Hemoglobin Concent 33.2 32-36 g/dl Platelet Count 340 130-400 K/uL Mean Platelet Volume 10.0 7.4-10.4 fL Neutrophils (%) (Auto) 69.8 % Lymphocytes (%) (Auto) 21.4 % Monocytes (%) (Auto) 5.9 % Eosinophils (%) (Auto) 2.5 % Basophils (%) (Auto) 0.2 % Neutrophils # (Auto) 7.56 1.4-6.5 K/uL Lymphocytes # (Auto) 2.32 1.2-3.4 K/uL Monocytes # (Auto) 0.64 0.11-0.59 K/uL Eosinophils # (Auto) 0.27 0-0.5 K/uL Basophils # (Auto) 0.02 0-0.2 K/uL RDW Standard Deviation 46.0 36.4-46.3 fL RDW Coefficient of Variation 14.0 11.5-14.5 % Immature Granulocyte % (Auto) 0.2 % Immature Granulocyte # (Auto) 0.02 0.00-0.02 K/uL Sodium Level 142 136-145 mmol/L Potassium Level 3.5 3.5-5.1 mmol/L Chloride Level 107 98-107 mmol/L Carbon Dioxide Level 27 21-32 mmol/L Anion Gap 8.0 3-11 mmol/L Blood Urea Nitrogen 17 7-18 mg/dl Creatinine 1.00 0.60-1.20 mg/dl Est Creatinine Clear Calc Drug Dose 135.3 ml/min Estimated GFR () 90.7 Estimated GFR (Non- 78.2 BUN/Creatinine Ratio 17.2 10-20 Random Glucose 97 70-99 mg/dl Calcium Level 9.2 8.5-10.1 mg/dl Magnesium Level 2.1 1.8-2.4 mg/dl Total Bilirubin 0.3 0.2-1 mg/dl Aspartate Amino Transf (AST/SGOT) 13 15-37 U/L Alanine Aminotransferase (ALT/SGPT) 28 12-78 U/L Alkaline Phosphatase 109 45-117 U/L Troponin I < 0.015 0-0.045 ng/ml Total Protein 7.1 6.4-8.2 gm/dl Albumin 3.5 3.4-5.0 gm/dl Globulin 3.6 2.5-4.0 gm/dl Albumin/Globulin Ratio 1.0 0.9-2 Thyroid Stimulating Hormone (TSH) 7.780 0.300-4.500 uIu/ml Monoscreen NEG NEG Urine Color YELLOW Urine Appearance CLEAR CLEAR Urine pH 5.5 4.5-7.5 Urine Specific [place] 1.015 1.000-1.030 Urine Protein NEG NEG Urine Glucose (UA) NEG NEG Urine Ketones NEG NEG Urine Occult Blood NEG NEG Urine Nitrite NEG NEG Urine Bilirubin NEG NEG Urine Urobilinogen NEG NEG Urine Leukocyte Esterase SMALL NEG Urine WBC (Auto) 5-10 0-5 /hpf Urine RBC (Auto) 0-4 0-4 /hpf Urine Hyaline Casts (Auto) 0 0-5 /lpf Urine Epithelial Cells (Auto) >30 0-5 /lpf Urine Bacteria (Auto) NEG NEG Diagnostic Radiology Chest x-ray reviewed by the undersigned. Normal cardiac silhouette. No infiltrates, effusions, CHF, pneumonia Rx. (Formal interpretation by Radiology pending) . EKG EKG performed at 22:44 reviewed and demonstrated normal sinus rhythm at 76/ minute, no acute ST or T-wave abnormalities. . Impression Assessment and Plan CHEST PAIN Atypical for ischemic heart disease. Acute [place] ruled out on 04/20/17. Echo on 04/21/17 did not show any wall motion abnormalities, evidence of pericarditis, or other concerns. Cardiac markers again negative this evening. No acute changes on EKG. Pulmonary embolism ruled out by CTA of chest on 04/20/17. Examination reveals left parasternal tenderness light pressure. May have costochondritis. Trial of naproxen. No further evaluation necessary at this time. SYNCOPE Recurrent syncope. Head CT negative EEG negative during last hospital stay. Consider arrhythmias, but none were noted during her last hospitalization. Consider possibility of focal seizures. ? continuous EEG. Check orthostatics. VTE PROPHYLAXIS Reported allergy to heparin. SCD's. Ambulate. DISPOSITION Observation status on Telemetry. Expected discharge to home. Family Medicine follow-up with Dr. Hector. . VTE Prophylaxis VTE Risk Assessment Done? Y/N: Yes Risk Level: Moderate Given or contraindicated: SCD's
[2017-04-23] MEDS ORDERED: IV FLUIDS COMPLETED PRN (02:30)
[2017-04-23] MEDS: CYCLOBENZAPRINE HCL 10 MG TAB PO PRN ×2 (02:32→22:45)
[2017-04-23] MEDS: LEVOTHYROXINE 75 MCG TAB PO SCH (06:19)
--- NOTE | 2017-04-23 06:48 | DIAGNOSTIC IMAGING REPORT ---
CHEST ONE VIEW PORTABLE CLINICAL HISTORY: Chest pain. Dizziness. Facial numbness. COMPARISON STUDY: Chest radiograph and chest CT April 20, 2017. FINDINGS: Lung volumes are normal. There is no pneumothorax or pleural effusion. There is no consolidation to suggest pneumonia. Cardiomediastinal silhouette is normal. The appearance of the chest is unchanged. IMPRESSION: No acute cardiopulmonary findings. Electronically signed by: Mik Arredondo M.D. 04/23/2017 6:47 AM Dictated Date/Time: 04/23/2017 6:46 AM
[2017-04-23] MEDS: NAPROXEN 375 MG TAB PO SCH ×2 (07:56→17:24)
[2017-04-23] MEDS: PANTOprazole SOD 40 MG TAB PO SCH (07:57)
[2017-04-23] MEDS: HYDROCHLOROTHIAZIDE 50 MG TAB PO SCH (07:57)
--- NOTE | 2017-04-23 11:20 | Progress Note ---
Internal Med Progress Note Date of Service: Apr 23, 2017. Provider Documentation: SUBJECTIVE: The patient was seen and examined Has Had another episode of syncope last evening Feels fine this morning and wants to go home OBJECTIVE: Vital Signs-as noted below Exam: General-No distress at rest Eyes-normal ENT-normal Neck-supple Lungs-Clear to ausucltate bilaterally Heart-Regular,no murmur Abdomen-Benign,no masses,bowel sound present Extremities-NO edema Neuro-AAOx3 No focal Neuro deficit Lab data as noted below. ASSESSMENT & PLAN: CHEST PAIN-Doubt any ACS May have costochondritis. Acute [place] ruled out on 04/20/17. Echo on 04/21/17 did not show any wall motion abnormalities, evidence of pericarditis, or other concerns. Cardiac markers again negative this evening. No acute changes on EKG. Pulmonary embolism ruled out by CTA of chest on 04/20/17. Examination reveals left parasternal tenderness light pressure. NSAID prescribed SYNCOPE-Recurrent syncope. Head CT negative EEG negative during last hospital stay. Consider arrhythmias, but none were noted during her last hospitalization. Consider possibility of focal seizures. Check orthostatics. Likely to have EEG monitoring as an OP Will discuss with Neurology VTE PROPHYLAXIS Reported allergy to heparin. SCD's. Ambulate. DISPOSITION Observation status on Telemetry.-no arrhythmia Expected discharge to home. Family Medicine follow-up with Dr. Hector. Likely to discharge tomorrow Vital Signs: Date Time Temp Pulse Resp B/P (MAP) Pulse Ox O2 Delivery O2 Flow Rate FiO2 04/23/17 08:07 36.6 52 17 120/57 (78) 98 Room Air 04/23/17 04:00 Room Air 04/23/17 03:16 36.7 56 18 116/60 (78) 96 Room Air 04/23/17 01:58 36.8 61 24 142/70 96 Room Air 04/23/17 01:45 59 17 109/52 98 04/23/17 01:15 75 23 97 04/23/17 01:10 78 27 97 04/23/17 01:02 115/65 04/23/17 00:40 65 23 97 04/23/17 00:31 133/71 04/23/17 00:10 75 28 95 04/23/17 00:05 74 28 94 04/23/17 00:02 106/65 04/22/17 23:35 94 14 93 04/22/17 23:31 79 27 142/67 96 Room Air 04/22/17 22:05 74 04/22/17 22:04 97 Room Air 04/22/17 22:04 97 Room Air 04/22/17 22:04 36.8 79 24 146/74 97 Room Air Lab Results: Results Past 24 Hours Test 04/22/17 22:20 04/22/17 22:45 Range/Units White Blood Count 10.83 4.8-10.8 K/uL Red Blood Count 4.53 4.2-5.4 M/uL Hemoglobin 13.3 12.0-16.0 g/dL Hematocrit 40.1 37-47 % Mean Corpuscular Volume 88.5 80-100 fL Mean Corpuscular Hemoglobin 29.4 25-34 pg Mean Corpuscular Hemoglobin Concent 33.2 32-36 g/dl Platelet Count 340 130-400 K/uL Mean Platelet Volume 10.0 7.4-10.4 fL Neutrophils (%) (Auto) 69.8 % Lymphocytes (%) (Auto) 21.4 % Monocytes (%) (Auto) 5.9 % Eosinophils (%) (Auto) 2.5 % Basophils (%) (Auto) 0.2 % Neutrophils # (Auto) 7.56 1.4-6.5 K/uL Lymphocytes # (Auto) 2.32 1.2-3.4 K/uL Monocytes # (Auto) 0.64 0.11-0.59 K/uL Eosinophils # (Auto) 0.27 0-0.5 K/uL Basophils # (Auto) 0.02 0-0.2 K/uL RDW Standard Deviation 46.0 36.4-46.3 fL RDW Coefficient of Variation 14.0 11.5-14.5 % Immature Granulocyte % (Auto) 0.2 % Immature Granulocyte # (Auto) 0.02 0.00-0.02 K/uL Sodium Level 142 136-145 mmol/L Potassium Level 3.5 3.5-5.1 mmol/L Chloride Level 107 98-107 mmol/L Carbon Dioxide Level 27 21-32 mmol/L Anion Gap 8.0 3-11 mmol/L Blood Urea Nitrogen 17 7-18 mg/dl Creatinine 1.00 0.60-1.20 mg/dl Est Creatinine Clear Calc Drug Dose 135.3 ml/min Estimated GFR () 90.7 Estimated GFR (Non- 78.2 BUN/Creatinine Ratio 17.2 10-20 Random Glucose 97 70-99 mg/dl Calcium Level 9.2 8.5-10.1 mg/dl Magnesium Level 2.1 1.8-2.4 mg/dl Total Bilirubin 0.3 0.2-1 mg/dl Aspartate Amino Transf (AST/SGOT) 13 15-37 U/L Alanine Aminotransferase (ALT/SGPT) 28 12-78 U/L Alkaline Phosphatase 109 45-117 U/L Troponin I < 0.015 0-0.045 ng/ml Total Protein 7.1 6.4-8.2 gm/dl Albumin 3.5 3.4-5.0 gm/dl Globulin 3.6 2.5-4.0 gm/dl Albumin/Globulin Ratio 1.0 0.9-2 Thyroid Stimulating Hormone (TSH) 7.780 0.300-4.500 uIu/ml Monoscreen NEG NEG Urine Color YELLOW Urine Appearance CLEAR CLEAR Urine pH 5.5 4.5-7.5 Urine Specific [place] 1.015 1.000-1.030 Urine Protein NEG NEG Urine Glucose (UA) NEG NEG Urine Ketones NEG NEG Urine Occult Blood NEG NEG Urine Nitrite NEG NEG Urine Bilirubin NEG NEG Urine Urobilinogen NEG NEG Urine Leukocyte Esterase SMALL NEG Urine WBC (Auto) 5-10 0-5 /hpf Urine RBC (Auto) 0-4 0-4 /hpf Urine Hyaline Casts (Auto) 0 0-5 /lpf Urine Epithelial Cells (Auto) >30 0-5 /lpf Urine Bacteria (Auto) NEG NEG
[2017-04-23 12:11] LABS: LYME DISEASE AB IGG NEG (NEG); LYME DISEASE AB IGM NEG (NEG)
[2017-04-23] MEDS ORDERED: RANITIDINE HCL 150 MG TAB PO SCH (21:00)
[2017-04-23] MEDS: ONDANSETRON INJ 2 MG/ML 2 ML VIAL IV PRN (22:44)
[2017-04-24] VITALS (7 sets, daily range): BP systolic 108–123; BP diastolic 47–63; PULSE 49–86; TEMP 36.6–36.8; O2SAT 97–99
[2017-04-24] MEDS: ONDANSETRON INJ 2 MG/ML 2 ML VIAL IV PRN (00:44)
[2017-04-24] MEDS: LEVOTHYROXINE 75 MCG TAB PO SCH (05:55)
[2017-04-24] MEDS: PANTOprazole SOD 40 MG TAB PO SCH (08:30)
[2017-04-24] MEDS: NAPROXEN 375 MG TAB PO SCH (08:30)
[2017-04-24] MEDS: HYDROCHLOROTHIAZIDE 50 MG TAB PO SCH (08:30)
--- NOTE | 2017-04-24 10:05 | Progress Note ---
Internal Med Progress Note Date of Service: Apr 24, 2017. Provider Documentation: SUBJECTIVE: The patient was seen and examined Has Had another episode of syncope the evening before admission Has had palpitation last evening without any LOC and or Hemodynamic instability No symptoms this morning OBJECTIVE: Vital Signs-as noted below Exam: General-No distress at rest Eyes-normal ENT-normal Neck-supple Lungs-Clear to ausucltate bilaterally Heart-Regular,no murmur Abdomen-Benign,no masses,bowel sound present Extremities-NO edema Neuro-AAOx3 No focal Neuro deficit Lab data as noted below. ASSESSMENT & PLAN: CHEST PAIN-Doubt any ACS May have costochondritis. Acute MT ruled out on 04/20/17. Echo on 04/21/17 did not show any wall motion abnormalities, evidence of pericarditis, or other concerns. Cardiac markers again negative this evening. No acute changes on EKG. Pulmonary embolism ruled out by CTA of chest on 04/20/17. Examination reveals left parasternal tenderness light pressure.Has had sternal rub for unresponsive episode NSAID prescribed No more chest pain,no arrhythmia SYNCOPE-Recurrent syncope. Head CT negative EEG negative during last hospital stay. Consider arrhythmias, but none were noted during her last hospitalization. Consider possibility of focal seizures. Check orthostatics-negative . Likely to have EEG monitoring as an OP Will discuss with Neurology No more episodes of Syncope/presyncope VTE PROPHYLAXIS Reported allergy to heparin. SCD's. Ambulate. DISPOSITION Observation status on Telemetry.-no arrhythmia Expected discharge to home. Family Medicine follow-up with Dr. Hector. Discharge home today Vital Signs: Date Time Temp Pulse Resp B/P (MAP) Pulse Ox O2 Delivery O2 Flow Rate FiO2 04/24/17 08:39 36.7 70 19 108/47 (67) 99 Room Air 66 119/61 (80) 86 108/59 (75) 04/24/17 08:00 Room Air 04/24/17 04:18 98 Room Air 04/24/17 03:59 36.8 49 22 114/57 (76) 97 Room Air 04/24/17 00:19 36.6 55 29 123/57 (79) 97 Room Air 04/24/17 00:18 98 Room Air 04/23/17 20:00 98 Room Air 04/23/17 18:23 36.6 75 30 123/82 (96) 98 Room Air 04/23/17 16:00 98 Room Air 04/23/17 15:49 36.7 62 17 101/60 (74) 98 Room Air 04/23/17 12:00 Room Air 04/23/17 11:47 36.7 57 26 111/50 (70) 97 Room Air 67 96/50 (65) 101 104/73 (83)
--- NOTE | 2017-04-24 11:42 | Discharge Instructions ---
Discharge Instructions Date of Service Apr 24, 2017. Admission Reason for Admission: Chest Pain, Syncope Discharge Discharge Diagnosis / Problem: Recurrent Syncope,Chest pain-No ACS Discharge Goals Goal(s): Prevent Disease Progression Activity Recommendations Activity Limitations: resume your previous activity (Do not Drive until cleared by Neurology) . Instructions / Follow-Up Instructions / Follow-Up Dr Hector on 04/28/17 at 12:55PM.Will need to be seen in Neurology clinic Current Hospital Diet Patient's current hospital diet: AHA Diet (Heart Healthy) Discharge Diet Recommended Diet: AHA Diet (Heart Healthy) Pending Studies Studies pending at discharge: no Medical Emergencies . Who to Call and When: Medical Emergencies: If at any time you feel your situation is an emergency, please call 911 immediately. . Non-Emergent Contact Non-Emergency issues call your: Primary Care Provider . Past History Medical & Surgical History: (1) Asthma (2) Migraine headache (3) Chest pain (4) Syncope (5) Status post cholecystectomy . "Provider Documentation" section prepared by Keshia Hermosillo. . VTE Core Measure Inpt VTE Proph given/why not?: SCD's
--- NOTE | 2017-04-26 21:41 | Discharge Summary ---
Discharge Summary Date of Service Apr 26, 2017. Discharge Summary Admission Date: Apr 23, 2017 at 01:16 Discharge Date: Apr 24, 2017 Discharge Disposition: Home Principal Diagnosis: Recurrent Syncope,Chest pain-No ACS Secondary Diagnoses/Problems: Please see the H&P and Hospital progress note Medication Reconciliation Continued Medications: Albuterol Hfa (Ventolin Hfa) 200 Puffs/17397 Mcg Aers 2 PUFFS INH Q6H PRN for SOB/Wheezing, #1 INHALER Cyclobenzaprine Hcl (Flexeril) 5 Mg Tab 5 MG PO TID PRN for Muscle Spasms, TAB PRN Dicyclomine Hcl (Bentyl) 10 Mg Cap 10-20 MG PO QID PRN for abd pain, CAP Folic Acid (Folvite) 1 Mg Tab 1 MG PO DAILY, TAB Hydrochlorothiazide (Hctz) 50 Mg Tab 50 MG PO DAILY, TAB Lansoprazole (Prevacid) 30 Mg Cap 30 MG PO QAM, CAP Levothyroxine Sodium (Levothyroxine Sodium) 75 Mcg Tab 75 MCG PO DAILY, TAB 3 Refills Ranitidine (Zantac) 300 Mg Tab 300 MG PO HS, TAB Admission Information HPI (per Admitting provider): 26 YO female followed by Dr. Hector. History of migraine headaches, GERD, and other problems noted below. Hospitalized at [facility] from 04/20/17 with chest pain and syncope. Neurology and Psychiatry were consulted. Acute myocardial infarction ruled out. No arrhythmias noted on cardiac monitoring. Echocardiogram did not show any significant abnormalities. CT of chest negative for pulmonary embolism. CT of head negative. EEG unremarkable. Patient was discharged to home yesterday afternoon. She continued to have mild chest pain and lightheadedness which had been continuous since 04/20. Attended a [employer] sale / picnic. Around 8 PM she was sitting on a couch and felt racing of her heart, worsening chest pain, lightheadedness, dizziness. Chest pain described as left parasternal burning that did not radiate. She subsequently developed headache, neck pain, facial numbness, and then lost consciousness. Her states that she was difficult to arouse for about 30 minutes. No apparent seizure activity, tongue biting, incontinence. Brought to the emergency room where she continued to have chest discomfort and nausea. Received fentanyl and ondansetron with some relief. Past Medical/Surgical History Medical Problems: (1) Asthma Status: Chronic (2) GERD (gastroesophageal reflux disease) Status: Chronic (3) History of DVT of lower extremity Status: Chronic (4) Hypothyroidism Status: Resolved (5) Migraine headache Status: Chronic (6) Obesity Status: Chronic Surgical Problems: (1) Status post cholecystectomy Status: Chronic Family History Diabetes mellitus FH: cancer FH: gallbladder disease FH: heart disease FH: lung disease Hypertension Kidney disease or stones Seizures Social History Smoking Status: Never Smoker Drug Use: none Marital Status: single Housing status: lives with family Occupational Status: employed Immunizations History of Influenza Vaccine: No History of Tetanus Vaccine?: Yes History of Pneumococcal: No History of Hepatitis B Vaccine: No Multi-Drug Resistant Organisms History of MDRO: No Allergies Coded Allergies: Heparin (Verified Allergy, Severe, CELLULITIS AT INJECTION SITES, 04/22/17) Blueberry (Verified Allergy, Intermediate, HIVES, 04/22/17) Ceftriaxone (Verified Allergy, Intermediate, itching,HIVES, 04/22/17) Cephalexin (Verified Allergy, Intermediate, ittchy, 04/22/17) Oxycodone (Verified Allergy, Intermediate, hives n/v, 04/22/17) Penicillins (Verified Allergy, Intermediate, AMOXICILLIN SOB, TACHYCARDIA & HIVES, 04/22/17) Codeine (Verified Allergy, Mild, RASH, 04/22/17) Morphine (Verified Allergy, Mild, ABDOMINAL PAIN,DIARRHEA,HIVES NAUSEA AND VOMITING, 04/22/17) Amoxicillin (Unverified Allergy, Unknown, HIVES,RASH HIGH BP,FAST HEART RATE,DIARRHEA,SOB, 04/22/17) Dust (Unverified Allergy, Unknown, WHEEZING,SOB, 04/22/17) Quadrivalent HPV (6,11,16,18) Recom (Verified Allergy, Unknown, RASH RAPID HEART BEAT, 04/22/17) Acetaminophen (Verified Adverse Reaction, Severe, ELEVATED LFTS WITH MINIMAL DOSES, 04/22/17) Unclassified Drugs (Verified Adverse Reaction, Intermediate, Vicryl Sutures - infection outcome x 2, 04/22/17) PER PATIENT, DEVELOPED INFECTION TWICE FOLLOWING PROCEDURES INVOLVING THE USE OF VICRYL STITCHING Vancomycin (Verified Adverse Reaction, Intermediate, ITCHING,SOB, 04/22/17) Tramadol (Verified Adverse Reaction, Mild, nausea, vomiting, 04/22/17) Home Medications Scheduled Folic Acid (Folvite), 1 MG PO DAILY Hydrochlorothiazide (Hctz), 50 MG PO DAILY Lansoprazole (Prevacid), 30 MG PO QAM Levothyroxine Sodium (Levothyroxine Sodium), 75 MCG PO DAILY Ranitidine (Zantac), 300 MG PO HS Scheduled PRN Albuterol Hfa (Ventolin Hfa), 2 PUFFS INH Q6H PRN for SOB/Wheezing Cyclobenzaprine Hcl (Flexeril), 5 MG PO TID PRN for Muscle Spasms Dicyclomine Hcl (Bentyl), 10-20 MG PO QID PRN for abd pain Review of Systems As noted above in history of present illness. . Physical Exam Vital Signs Date Time Temp Pulse Resp B/P (MAP) Pulse Ox O2 Delivery O2 Flow Rate FiO2 04/23/17 01:15 75 23 97 04/23/17 01:10 78 27 97 04/23/17 01:02 115/65 04/23/17 00:40 65 23 97 04/23/17 00:31 133/71 04/23/17 00:10 75 28 95 04/23/17 00:05 74 28 94 04/23/17 00:02 106/65 04/22/17 23:35 94 14 93 04/22/17 23:31 79 27 142/67 96 Room Air 04/22/17 22:05 74 04/22/17 22:04 97 Room Air 04/22/17 22:04 97 Room Air 04/22/17 22:04 36.8 79 24 146/74 97 Room Air General Appearance: WD/WN, no apparent distress Head: normocephalic, atraumatic Eyes: normal inspection, PERRL, EOMI, sclerae normal ENT: normal ENT inspection, hearing grossly normal, pharynx normal Neck: supple, no adenopathy, thyroid normal, trachea midline Respiratory/Chest: lungs clear, no respiratory distress, no accessory muscle use Cardiovascular: regular rate, rhythm, no edema, no gallop, no JVD, no murmur, normal peripheral pulses, + pertinent finding (no rub; + parasteranal chest wall tenderness to light pressure) Abdomen/GI: normal bowel sounds, non tender, soft, no organomegaly, no pulsatile mass Extremities/Musculoskelatal: normal inspection, no calf tenderness, no pedal edema Neurologic/Psych: occupational therapist II-XII nml as tested (PERRL, EOMI, no facial palsy, no dysarthria), no motor/sensory deficits (motor strength 5/5 bilat), alert, normal reflexes, oriented x 3 Skin: normal color, warm/dry, no rash Lymphatic: no adenopathy Diagnostics Laboratory Results Results Past 24 Hours Test 04/22/17 22:20 04/22/17 22:45 Range/Units White Blood Count 10.83 4.8-10.8 K/uL Red Blood Count 4.53 4.2-5.4 M/uL Hemoglobin 13.3 12.0-16.0 g/dL Hematocrit 40.1 37-47 % Mean Corpuscular Volume 88.5 80-100 fL Mean Corpuscular Hemoglobin 29.4 25-34 pg Mean Corpuscular Hemoglobin Concent 33.2 32-36 g/dl Platelet Count 340 130-400 K/uL Mean Platelet Volume 10.0 7.4-10.4 fL Neutrophils (%) (Auto) 69.8 % Lymphocytes (%) (Auto) 21.4 % Monocytes (%) (Auto) 5.9 % Eosinophils (%) (Auto) 2.5 % Basophils (%) (Auto) 0.2 % Neutrophils # (Auto) 7.56 1.4-6.5 K/uL Lymphocytes # (Auto) 2.32 1.2-3.4 K/uL Monocytes # (Auto) 0.64 0.11-0.59 K/uL Eosinophils # (Auto) 0.27 0-0.5 K/uL Basophils # (Auto) 0.02 0-0.2 K/uL RDW Standard Deviation 46.0 36.4-46.3 fL RDW Coefficient of Variation 14.0 11.5-14.5 % Immature Granulocyte % (Auto) 0.2 % Immature Granulocyte # (Auto) 0.02 0.00-0.02 K/uL Sodium Level 142 136-145 mmol/L Potassium Level 3.5 3.5-5.1 mmol/L Chloride Level 107 98-107 mmol/L Carbon Dioxide Level 27 21-32 mmol/L Anion Gap 8.0 3-11 mmol/L Blood Urea Nitrogen 17 7-18 mg/dl Creatinine 1.00 0.60-1.20 mg/dl Est Creatinine Clear Calc Drug Dose 135.3 ml/min Estimated GFR () 90.7 Estimated GFR (Non- 78.2 BUN/Creatinine Ratio 17.2 10-20 Random Glucose 97 70-99 mg/dl Calcium Level 9.2 8.5-10.1 mg/dl Magnesium Level 2.1 1.8-2.4 mg/dl Total Bilirubin 0.3 0.2-1 mg/dl Aspartate Amino Transf (AST/SGOT) 13 15-37 U/L Alanine Aminotransferase (ALT/SGPT) 28 12-78 U/L Alkaline Phosphatase 109 45-117 U/L Troponin I < 0.015 0-0.045 ng/ml Total Protein 7.1 6.4-8.2 gm/dl Albumin 3.5 3.4-5.0 gm/dl Globulin 3.6 2.5-4.0 gm/dl Albumin/Globulin Ratio 1.0 0.9-2 Thyroid Stimulating Hormone (TSH) 7.780 0.300-4.500 uIu/ml Monoscreen NEG NEG Urine Color YELLOW Urine Appearance CLEAR CLEAR Urine pH 5.5 4.5-7.5 Urine Specific [place] 1.015 1.000-1.030 Urine Protein NEG NEG Urine Glucose (UA) NEG NEG Urine Ketones NEG NEG Urine Occult Blood NEG NEG Urine Nitrite NEG NEG Urine Bilirubin NEG NEG Urine Urobilinogen NEG NEG Urine Leukocyte Esterase SMALL NEG Urine WBC (Auto) 5-10 0-5 /hpf Urine RBC (Auto) 0-4 0-4 /hpf Urine Hyaline Casts (Auto) 0 0-5 /lpf Urine Epithelial Cells (Auto) >30 0-5 /lpf Urine Bacteria (Auto) NEG NEG Diagnostic Radiology Chest x-ray reviewed by the undersigned. Normal cardiac silhouette. No infiltrates, effusions, CHF, pneumonia Rx. (Formal interpretation by Radiology pending) . EKG EKG performed at 22:44 reviewed and demonstrated normal sinus rhythm at 76/ minute, no acute ST or T-wave abnormalities. . Impression Assessment and Plan CHEST PAIN Atypical for ischemic heart disease. Acute ME ruled out on 04/20/17. Echo on 04/21/17 did not show any wall motion abnormalities, evidence of pericarditis, or other concerns. Cardiac markers again negative this evening. No acute changes on EKG. Pulmonary embolism ruled out by CTA of chest on 04/20/17. Examination reveals left parasternal tenderness light pressure. May have costochondritis. Trial of naproxen. No further evaluation necessary at this time. SYNCOPE Recurrent syncope. Head CT negative EEG negative during last hospital stay. Consider arrhythmias, but none were noted during her last hospitalization. Consider possibility of focal seizures. ? continuous EEG. Check orthostatics. VTE PROPHYLAXIS Reported allergy to heparin. SCD's. Ambulate. DISPOSITION Observation status on Telemetry. Expected discharge to home. Family Medicine follow-up with Dr. Hector. . VTE Prophylaxis VTE Risk Assessment Done? Y/N: Yes Risk Level: Moderate Given or contraindicated: SCD's <Electronically signed by Edvin Seay M.D.> . Physical Exam (per Admitting): General Appearance: WD/WN, no apparent distress Head: normocephalic, atraumatic Eyes: normal inspection, PERRL, EOMI, sclerae normal ENT: normal ENT inspection, hearing grossly normal, pharynx normal Neck: supple, no adenopathy, thyroid normal, trachea midline Respiratory/Chest: lungs clear, no respiratory distress, no accessory muscle use Cardiovascular: regular rate, rhythm, no edema, no gallop, no JVD, no murmur , normal peripheral pulses, + pertinent finding Abdomen/GI: normal bowel sounds, non tender, soft, no organomegaly, no pulsatile mass Extremities/Musculoskelatal: normal inspection, no calf tenderness, no pedal edema Neurologic/Psych: occupational therapist II-XII nml as tested, no motor/sensory deficits, alert , normal reflexes, oriented x 3 Skin: normal color, warm/dry, no rash Lymphatic: no adenopathy Hospital Course CHEST PAIN-Doubt any ACS May have costochondritis. Acute ME ruled out on 04/20/17. Echo on 04/21/17 did not show any wall motion abnormalities, evidence of pericarditis, or other concerns. Cardiac markers again negative this evening. No acute changes on EKG. Pulmonary embolism ruled out by CTA of chest on 04/20/17. Examination reveals left parasternal tenderness light pressure.Has had sternal rub for unresponsive episode NSAID prescribed No more chest pain,no arrhythmia SYNCOPE-Recurrent syncope. Head CT negative EEG negative during last hospital stay. Consider arrhythmias, but none were noted during her last hospitalization. Consider possibility of focal seizures. Check orthostatics-negative . Likely to have EEG monitoring as an OP Will discuss with Neurology No more episodes of Syncope/presyncope VTE PROPHYLAXIS Reported allergy to heparin. SCD's. Ambulate. DISPOSITION Observation status on Telemetry.-no arrhythmia Expected discharge to home. Family Medicine follow-up with Dr. Hector. Discharge home today Total time spent on discharge = 35 minutes This includes examination of the patient, discharge planning, medication reconciliation, and communication with other providers. Discharge Instructions Date of Service Apr 24, 2017. Admission Reason for Admission: Chest Pain, Syncope Discharge Discharge Diagnosis / Problem: Recurrent Syncope,Chest pain-No ACS Discharge Goals Goal(s): Prevent Disease Progression Activity Recommendations Activity Limitations: resume your previous activity (Do not Drive until cleared by Neurology) . Instructions / Follow-Up Instructions / Follow-Up Dr Hector on 04/28/17 at 12:55PM.Will need to be seen in Neurology clinic Current Hospital Diet Patient's current hospital diet: AHA Diet (Heart Healthy) Discharge Diet Recommended Diet: AHA Diet (Heart Healthy) Pending Studies Studies pending at discharge: no Medical Emergencies . Who to Call and When: Medical Emergencies: If at any time you feel your situation is an emergency, please call 911 immediately. . Non-Emergent Contact Non-Emergency issues call your: Primary Care Provider . Past History Medical & Surgical History: (1) Asthma (2) Migraine headache (3) Chest pain (4) Syncope (5) Status post cholecystectomy . "Provider Documentation" section prepared by Keshia Hermosillo. . VTE Core Measure Inpt VTE Proph given/why not?: SCD's <Electronically signed by Keshia Hermosillo M.D.> Additional Copies To Ronel Hector,DO
[2017-06-14] MEDS ORDERED: MTR600X PO (15:26)
== END 2017-04-24 12:30 | disposition home or self-care (01) ==
LOC: EDBD 21:51 → C.EDC 21:52 → C.2E 04-23 01:16 → ENRESERV 04-23 01:32
PROVIDERS: ADMIT Hospitalist; ATTEND Internal Medicine
DX: R07.2 Precordial pain (principal); R55 Syncope and collapse; J45.909 Unspecified asthma, uncomplicated; K21.9 Gastro-esophageal reflux disease without esophagitis; Z86.718 Personal history of other venous thrombosis and embolism; E03.9 Hypothyroidism, unspecified; E66.9 Obesity, unspecified; Z90.49 Acquired absence of other specified parts of digestive tract; Z82.49 Family history of ischemic heart disease and other diseases of the circulatory system; Z84.1 Family history of disorders of kidney and ureter; Z82.0 Family history of epilepsy and other diseases of the nervous system; Z83.6 Family history of other diseases of the respiratory system

== ENCOUNTER → 2017-05-06 | Outpatient (CLI) | payer OTHER ==
[~2017-05-06] MED LIST changes: +GADAVIST IV PRN; +LEVO75TA5 PO; +MTR600X PO
--- NOTE | 2017-05-06 18:30 | DIAGNOSTIC IMAGING REPORT ---
Brain MRI WITH AND WITHOUT CONTRAST HISTORY: SEVERE FRONTAL HEADACHES TECHNIQUE: Multiplanar multisequence MRI of the brain was performed both before and after the intravenous administration of contrast. COMPARISON STUDY: Head CT 04/20/2017. Brain MRI 10/29/2013. FINDINGS: No areas of restricted diffusion to suggest acute infarction. The midline structures are intact. There are few small scalp nodules, unchanged. The long-term stability favors a sebaceous cyst. A 2.7 cm retention cyst within the left maxillary sinus. The mastoid air cells are clear. The orbits are unremarkable. A 1 cm focus of encephalomalacia within the periphery of the right cerebellar hemisphere. This is favors an old lacunar infarct. The major vascular flow-voids at the skull base are well-maintained. There is no mass, hematoma, or midline shift. No abnormal enhancement. IMPRESSION: 1. No acute intracranial abnormality. 2. A 1 cm focus of encephalomalacia within the right cerebellar hemisphere. This is consistent with an old lacunar infarct. Electronically signed by: Cruz Fontana M.D. 05/06/2017 6:29 PM Dictated Date/Time: 05/06/2017 6:19 PM
== END | disposition home or self-care (01) ==
LOC: C.MRI 17:38
PROVIDERS: ATTEND Family Medicine
DX: R51 Headache (principal); M43.6 Torticollis; H53.149 Visual discomfort, unspecified; R55 Syncope and collapse; R40.20 Unspecified coma; G40.209 Localization-related (focal) (partial) symptomatic epilepsy and epileptic syndromes with complex partial seizures, not intractable, without status epilepticus; M54.2 Cervicalgia

== ENCOUNTER 2017-06-14 09:55 | Day surgery (SDC) | payer OTHER ==
[2017-06-13 14:56] VITALS: BMI 48.0
[~2017-06-14] VITALS: Ht 175.3 cm; Wt 147.7 kg
[~2017-06-14 09:55] MED LIST changes: -GADAVIST IV PRN; -MTR600X PO
[2017-06-14 10:29] VITALS: BP 155/74; PULSE 67; TEMP 36.6; O2SAT 100; Ht 175.3 cm; Wt 147.7 kg
[2017-06-14 11:27] LABS: PROTHROMBIN TIME (PATIENT) 10.4 SECONDS (9.0-12.0)
[2017-06-14 11:40] LABS: HEMATOCRIT 37.5 % (37-47); MEAN CELL VOLUME 88.2 fL (80-100); MEAN CORPUSCULAR HEMOGLOBIN 29.2 pg (25-34); MEAN CORPUSCULAR HGB CONC 33.1 g/dl (32-36); MEAN PLATELET VOLUME 9.6 fL (7.4-10.4); PLATELET COUNT 312 K/uL (130-400); RED BLOOD COUNT 4.25 M/uL (4.2-5.4); WHITE BLOOD COUNT 7.37 K/uL (4.8-10.8)
[2017-06-14 11:42] LABS: BASO % 0.1 %; BASO ABS # 0.01 K/uL (0-0.2); COMPLETE YES; EOS % 1.4 %; IG% 0.3 %; LYMPH % 21.8 %; LYMPH ABS # 1.61 K/uL (1.2-3.4); MONO % 5.4 %
[2017-06-14] MEDS ORDERED: MIDAZOLAM HCL 1 MG/ML 2ML VIAL ONE (11:53)
[2017-06-14] MEDS ORDERED: FENTANYL CITRATE INJ 50 MCG/1 ML 2 ML VIAL ONE (11:53)
[2017-06-14] MEDS ORDERED: NURSING VERBAL MED ORDER ONE (13:30)
[2017-06-14] MEDS ORDERED: ONDANSETRON INJ 2 MG/ML 2 ML VIAL ONE ×2 (13:30→15:31)
--- NOTE | 2017-06-14 13:32 | History & Physical Bridge Note ---
H&P Re-Evaluation Bridge Note: I have examined the patient, reviewed the History & Physical and in the interval since the performance of the History & Physical I have noted the following changes of clinical significance: No changes noted
[2017-06-14] MEDS ORDERED: MISOPROSTOL 200 MCG TAB PR ONE (14:15)
[2017-06-14] MEDS ORDERED: METHYLERGONOVINE MALEATE 0.2 MG/ML AMP ONE (14:56)
[2017-06-14] MEDS ORDERED: ONDANSETRON INJ 2 MG/ML 2 ML VIAL IV PRN ×2 (15:00→15:30)
[2017-06-14] MEDS ORDERED: ATROPINE SULFATE 0.1 MG/ML 5ML SYR IV PRN (15:00)
[2017-06-14] MEDS ORDERED: EpHEDrine SULFATE INJ 50 MG/ML AMP IV PRN (15:00)
[2017-06-14] MEDS ORDERED: SODIUM CHLORIDE 0.9% 1000ML 1,000 ML IV SCH (15:23)
[2017-06-14] MEDS ORDERED: MTR600X PO (15:26)
--- NOTE | 2017-06-14 15:28 | Discharge Instructions ---
Discharge Instructions Date of Service Jun 14, 2017. Admission Reason for Admission: Missed Discharge Discharge Diagnosis / Problem: postop Discharge Goals Goal(s): Routine recovery after surgery Activity Recommendations Activity Limitations: as noted below ACTIVITY RECOMMENDATIONS: * Avoid tampons, douching, hot tubs, pools, and intercourse until bleeding has stopped. * May shower as usual. * No strenuous activity for 24-48 hours. After 24-48 hours, you may do anything you feel like doing (driving and sports are okay). SPECIAL CARE INSTRUCTIONS: Special Diet: * Mild nausea may occur in the immediate post-operative period. * Take clear liquids such as tea, cola or bouillon until all nausea has subsided; you may then resume your normal diet. Special Care: * Light bleeding and vaginal spotting can last from a few days to 3-4 weeks. Call your doctor if bleeding becomes heavier than the heaviest part of your period. * Check your temperature twice a day for one week. If it goes above 100.4 degrees Fahrenheit (38.0 Celsius), notify your doctor. * Call your doctor's office for an appointment for 6 weeks after your surgery. FOLLOW-UP VISIT: Call your doctor's office for an appointment for 6 weeks after your surgery. . Current Hospital Diet Patient's current hospital diet: Discharge Diet Recommended Diet: Regular Diet Pending Studies Studies pending at discharge: no Medical Emergencies . Who to Call and When: Medical Emergencies: If at any time you feel your situation is an emergency, please call 911 immediately. . Non-Emergent Contact Non-Emergency issues call your: Specialist . . "Provider Documentation" section prepared by Lakhwinder Calderon. . VTE Core Measure Inpt VTE Proph given/why not?: Treatment not indicated
[2017-06-14] MEDS ORDERED: IBUPROFEN 600 MG TAB PO PRN (15:30)
[2017-06-14] MEDS ORDERED: METOCLOPRAMIDE HCL INJ 5 MG/ML 2 ML VIAL IV PRN (15:30)
[2017-06-14] MEDS ORDERED: ROCURONIUM BROMIDE 10 MG/ML 5 ML VIAL IV ONE (15:31)
[2017-06-14] MEDS ORDERED: DEXAMETHASONE SOD INJ 4 MG/ML VIAL ONE (15:31)
[2017-06-14] MEDS ORDERED: SUCCINYLCHOLINE CHLORIDE 20 MG/ML 10 ML VIAL IV ONE (15:31)
[2017-06-14] MEDS ORDERED: PROPOFOL IV EMULSION 10 MG/ML 20 ML VIAL IV ONE (15:31)
[2017-06-14] MEDS ORDERED: LIDOCAINE HCL 2% 2 ML VIAL (20MG/ML) ONE (15:31)
--- NOTE | 2017-06-14 15:35 | [facility] Post Operative Brief Note ---
Immediate Operative Summary Operative Date Jun 14, 2017. Pre-Operative Diagnosis missed at 6 weeks Post-Operative Diagnosis same Procedure(s) Performed D&E with suction under ultrsound guidance Surgeon patti Business Analyst Manager Surgeon(s) none Estimated Blood Loss 50 Findings dictated Fluids (cc crystalloids) 1000 Specimens products of conception Drains none Anesthesia general Complication(s) None Disposition Recovery Room / PACU
[2017-06-14] MEDS: FENTANYL CITRATE INJ 50 MCG/1 ML 2 ML VIAL IV PRN ×4 (15:38→15:54)
--- NOTE | 2017-06-14 16:23 | Anesthesiology Progress Note ---
Anesthesia Post Op Note Date & Time Jun 14, 2017 at 16:23 Vital Signs Pain Intensity: 3 Vital Signs Past 12 Hours Date Time Temp Pulse Resp B/P (MAP) Pulse Ox O2 Delivery O2 Flow Rate FiO2 06/14/17 16:20 36.6 59 16 127/58 98 Room Air 06/14/17 16:10 36.6 71 16 123/72 97 Room Air 06/14/17 16:00 36.6 76 16 123/67 99 Room Air 06/14/17 15:50 75 16 135/65 100 Room Air 06/14/17 15:40 68 16 121/58 100 Oxymask 10 06/14/17 15:30 68 16 121/65 100 Oxymask 10 06/14/17 15:23 37. 64 16 113/70 100 Oxymask 10 06/14/17 10:29 36.6 67 16 155/74 (101) 100 Room Air Notes Mental Status: alert / awake / arousable, participated in evaluation Pt Amnestic to Procedure: Yes Nausea / Vomiting: adequately controlled Pain: adequately controlled Airway Patency, RR, SpO2: stable & adequate BP & HR: stable & adequate Hydration State: stable & adequate Anesthetic Complications: no major complications apparent
[2017-06-14 16:30] VITALS: BP 133/52; PULSE 66; TEMP 36.6; O2SAT 98
[2017-06-14 17:00] VITALS: BP 111/61; PULSE 71; TEMP 36.6; O2SAT 98
--- NOTE | 2017-06-15 00:05 | OPERATIVE REPORT ---
DATE OF OPERATION: 06/14/2017 INDICATION FOR PROCEDURE: This is a 26-year-old with missed at 6 weeks. The patient still had failed expected management. PREOPERATIVE DIAGNOSIS: Missed at 6 weeks. POSTOPERATIVE DIAGNOSIS: Same. PROCEDURE: Dilation and evacuation of uterus with suction under ultrasound guidance. SURGEON: Dr. Calderon. FARM CREW MEMBER: None. ANESTHESIA: General. ESTIMATED BLOOD LOSS: 50 mL FLUID: 1000 mL. SPECIMEN: Products of conception. DRAINS: None. ANESTHESIA: General. COMPLICATIONS: None. DISPOSITION: Stable to recovery room. PROCEDURE: The patient was taken to the operating room where she was prepped and draped in normal sterile fashion in dorsal lithotomy position after a timeout was called. An ultrasound was performed in the operating room. The bladder was catheterized and 200 mL of clear urine was obtained. A weighted speculum was placed in the vagina. A Mckeon retractor used to retract anterior part of the vagina. Single tooth tenaculum was used to grab the anterior part of the cervix and cervix was dilated to a size 24. A size 8 curved curet was introduced into the uterine cavity. This was attached to suction. Suction was performed x3. Products of conception could be seen coming through the suction tube. The ultrasound also showed that the gestational sac was noted on the uterus. The suction was removed and a sharp curette introduced into the uterine cavity and curettage performed in all 4 quadrants until the gritty texture was obtained in all 4 quadrants. Suction was reintroduced into the uterine cavity. There were no more products coming through the uterus at this time. This was also confirmed by the ultrasound. All instruments are removed from the vagina including the single toothed tenaculum and retractors. There was good hemostasis at the end of the procedure. The patient was sent to recovery in stable condition. I attest to the content of the Intraoperative Record and any orders documented therein. Any exceptions are noted below. KELLEN
== END 2017-06-14 17:10 | disposition home or self-care (01) ==
LOC: C.ACU 09:55
PROVIDERS: ATTEND Obstetrics & Gynecology
DX: O02.1 Missed abortion (principal); K21.9 Gastro-esophageal reflux disease without esophagitis; E74.39 Other disorders of intestinal carbohydrate absorption; E03.9 Hypothyroidism, unspecified; E66.9 Obesity, unspecified; L30.9 Dermatitis, unspecified; Z90.49 Acquired absence of other specified parts of digestive tract; Z86.718 Personal history of other venous thrombosis and embolism

== ENCOUNTER 2017-08-06 12:15 | Emergency (ER) | payer OTHER ==
[~2017-08-06] VITALS: Ht 175.3 cm; Wt 150.7 kg
[~2017-08-06 12:15] MED LIST changes: -HYDR50TA3 PO
[2017-08-06 12:18] VITALS: TEMP 36.4; Ht 175.3 cm; Wt 150.7 kg
[2017-08-06] MEDS ORDERED: ONDANSETRON INJ 2 MG/ML 2 ML VIAL IV STA (12:29)
[2017-08-06] MEDS ORDERED: SODIUM CHLORIDE 0.9% 1000ML 1,000 ML IV STA (12:29)
--- NOTE | 2017-08-06 12:34 | EMERGENCY ROOM VISIT NOTE ---
History Report prepared by Iraida: Tello Andrew Under the Supervision of: Dr. Franc Varma M.D. First contact with patient: 12:26 Chief Complaint: ILLNESS Stated Complaint: SHAKING,NAUSEA,DIZZY,CANT CATCH BREATH,CHEST HURTS History of Present Illness The patient is a 27 year old female who presents to the Emergency Room with complaints of worsening illness for the past couple weeks. The patient states that she is shaky, light headed, dizzy, nauseous, and has been vomiting. She additionally notes that she has been having chest pain. She denies any abdominal pain. The patient states that she has been admitted for similar symptoms in the past. She is unsure if she is or not. Source of History: patient Onset: a couple weeks Position: other (global) Quality: other (illness) Timing: worsening Associated Symptoms: + chest pain, + nausea, + vomiting, No abdominal pain Note: Associated symptoms: shaky, light headed, dizzy Review of Systems See HPI for pertinent positives & negatives. A total of 10 systems reviewed and were otherwise negative. Past Medical & Surgical Medical Problems: (1) Asthma (2) GERD (gastroesophageal reflux disease) (3) History of DVT of lower extremity (4) Hypothyroidism (5) Migraine headache (6) Obesity Surgical Problems: (1) Status post cholecystectomy Family History Diabetes mellitus FH: cancer FH: gallbladder disease FH: heart disease FH: lung disease Hypertension Kidney disease or stones Seizures Social History Smoking Status: Never Smoker Alcohol Use: other Drug Use: none Marital Status: single Housing Status: lives with family Occupation Status: employed Current/Historical Medications Scheduled Enoxaparin (Lovenox), 40 MG SQ Q12H Ondasetron Odt (Zofran Odt), 4-8 MG SL Q6H Ranitidine (Zantac), 300 MG PO PRN Scheduled PRN Albuterol Hfa (Ventolin Hfa), 2 PUFFS INH Q6H PRN for SOB/Wheezing Cyclobenzaprine Hcl (Flexeril), 5 MG PO TID PRN for Muscle Spasms Dicyclomine Hcl (Bentyl), 10-20 MG PO QID PRN for abd pain Allergies Coded Allergies: Heparin (Verified Allergy, Severe, CELLULITIS AT INJECTION SITES, 08/06/17 ) Blueberry (Verified Allergy, Intermediate, HIVES, 08/06/17) Ceftriaxone (Verified Allergy, Intermediate, itching,HIVES, 08/06/17) Cephalexin (Verified Allergy, Intermediate, ittchy, 08/06/17) Oxycodone (Verified Allergy, Intermediate, hives n/v, 08/06/17) Penicillins (Verified Allergy, Intermediate, AMOXICILLIN SOB, TACHYCARDIA & HIVES, 08/06/17) Codeine (Verified Allergy, Mild, RASH, 08/06/17) Morphine (Verified Allergy, Mild, ABDOMINAL PAIN,DIARRHEA,HIVES NAUSEA AND VOMITING, 08/06/17) Amoxicillin (Verified Allergy, Unknown, HIVES,RASH HIGH BP,FAST HEART RATE ,DIARRHEA,SOB, 08/06/17) Dust (Verified Allergy, Unknown, WHEEZING,SOB, 08/06/17) Quadrivalent HPV (6,11,16,18) Recom (Verified Allergy, Unknown, RASH RAPID HEART BEAT, 08/06/17) Acetaminophen (Verified Adverse Reaction, Severe, ELEVATED LFTS WITH MINIMAL DOSES, 08/06/17) Unclassified Drugs (Verified Adverse Reaction, Intermediate, Vicryl Sutures - infection outcome x 2, 08/06/17) PER PATIENT, DEVELOPED INFECTION TWICE FOLLOWING PROCEDURES INVOLVING THE USE OF VICRYL STITCHING Vancomycin (Verified Adverse Reaction, Intermediate, ITCHING,SOB, 08/06/17 ) Tramadol (Verified Adverse Reaction, Mild, nausea, vomiting, 08/06/17) Physical Exam Vital Signs Date Time Temp Pulse Resp B/P (MAP) Pulse Ox O2 Delivery O2 Flow Rate FiO2 08/06/17 14:39 86 20 119/81 98 08/06/17 12:18 36.4 72 18 137/81 100 Room Air Physical Exam GENERAL: Patient is well appearing and in no acute distress. HEENT: No acute trauma, normocephalic atraumatic, mucous membranes moist, no nasal congestion, no scleral icterus. NECK: No stridor, no adenopathy, no meningismus, trachea is midline. LUNGS: No dyspnea. Clear to auscultation and equal bilaterally. No wheeze, no rhonchi. HEART: Regular rate and rhythm. No murmurs, rubs, gallops appreciated. ABDOMEN: Soft, nontender, bowel sounds positive, no masses appreciated, no peritonitis. BACK: No midline tenderness, no CVA tenderness EXTREMITIES: Normal motion all extremities, no cyanosis, no edema. NEUROLOGIC: Alert and oriented, no acute motor or sensory deficits, no focal weakness, cranial nerves grossly intact. SKIN: No rash, no jaundice, no diaphoresis. Medical Decision & Procedures Laboratory Results 08/06/17 12:30 Red Blood Count 4.39, Mean Corpuscular Volume 86.8, Mean Corpuscular Hemoglobin 29.8, Mean Corpuscular Hemoglobin Concent 34.4, Mean Platelet Volume 9.4, Neutrophils (%) (Auto) 75.6, Lymphocytes (%) (Auto) 16.2, Monocytes (%) (Auto) 6.8, Eosinophils (%) (Auto) 0.9, Basophils (%) (Auto) 0.2, Neutrophils # (Auto) 9.00, Lymphocytes # (Auto) 1.93, Monocytes # (Auto) 0.81, Eosinophils # (Auto) 0.11, Basophils # (Auto) 0.02 08/06/17 12:30 Test 08/06/17 12:30 08/06/17 12:43 White Blood Count 11.90 K/uL (4.8-10.8) Red Blood Count 4.39 M/uL (4.2-5.4) Hemoglobin 13.1 g/dL (12.0-16.0) Hematocrit 38.1 % (37-47) Mean Corpuscular Volume 86.8 fL (80-100) Mean Corpuscular Hemoglobin 29.8 pg (25-34) Mean Corpuscular Hemoglobin Concent 34.4 g/dl (32-36) Platelet Count 292 K/uL (130-400) Mean Platelet Volume 9.4 fL (7.4-10.4) Neutrophils (%) (Auto) 75.6 % Lymphocytes (%) (Auto) 16.2 % Monocytes (%) (Auto) 6.8 % Eosinophils (%) (Auto) 0.9 % Basophils (%) (Auto) 0.2 % Neutrophils # (Auto) 9.00 K/uL (1.4-6.5) Lymphocytes # (Auto) 1.93 K/uL (1.2-3.4) Monocytes # (Auto) 0.81 K/uL (0.11-0.59) Eosinophils # (Auto) 0.11 K/uL (0-0.5) Basophils # (Auto) 0.02 K/uL (0-0.2) RDW Standard Deviation 44.2 fL (36.4-46.3) RDW Coefficient of Variation 14.1 % (11.5-14.5) Immature Granulocyte % (Auto) 0.3 % Immature Granulocyte # (Auto) 0.03 K/uL (0.00-0.02) Anion Gap 7.0 mmol/L (3-11) Est Creatinine Clear Calc Drug Dose 166.2 ml/min Estimated GFR () 116.2 Estimated GFR (Non- 100.2 BUN/Creatinine Ratio 13.2 (10-20) Calcium Level 8.7 mg/dl (8.5-10.1) Phosphorus Level 3.0 mg/dl (2.5-4.9) Magnesium Level 2.1 mg/dl (1.8-2.4) Troponin I < 0.015 ng/ml (0-0.045) Human Chorionic Gonadotropin, Qual POS (NEG) Human Chorionic Gonadotropin, Quant 27555 mIU/mL Urine Color YELLOW Urine Appearance CLEAR (CLEAR) Urine pH 5.0 (4.5-7.5) Urine Specific [place] 1.015 (1.000-1.030) Urine Protein NEG (NEG) Urine Glucose (UA) NEG (NEG) Urine Ketones NEG (NEG) Urine Occult Blood NEG (NEG) Urine Nitrite NEG (NEG) Urine Bilirubin NEG (NEG) Urine Urobilinogen NEG (NEG) Urine Leukocyte Esterase TRACE (NEG) Urine WBC (Auto) 1-5 /hpf (0-5) Urine RBC (Auto) 0-4 /hpf (0-4) Urine Hyaline Casts (Auto) 0 /lpf (0-5) Urine Epithelial Cells (Auto) 20-30 /lpf (0-5) Urine Bacteria (Auto) NEG (NEG) Laboratory results as reviewed by me. Medications Administered Medications (Trade) Dose Ordered Sig/Lesvia Route Start Time Stop Time Status Last Admin Dose Admin Sodium Chloride 1,000 ml @ 999 mls/hr Q1H1M STAT IV 08/06/17 12:29 08/06/17 13:29 DC 08/06/17 12:29 999 MLS/HR Ondansetron HCl (Zofran Inj) 4 mg NOW STAT IV 08/06/17 12:29 08/06/17 12:31 DC 08/06/17 12:51 4 MG Enoxaparin Sodium (Lovenox Inj) 40 mg NOW ONCE SQ 08/06/17 14:15 08/06/17 14:16 DC 08/06/17 14:15 40 MG ECG Indication: other (illness) Rate (beats per minute): 70 Rhythm: normal sinus Findings: no acute ischemic change, no ectopy ED Course 1226: The patient was evaluated in room C6. A complete history and physical exam was performed. 1229: Zofran 4mg IV, Sodium Chloride 1000 ml @ 999 mls/hr IV 1323: I discussed the positive test, and she is feeling much better. She denies any abdominal pain. I discussed her history including blood clots. I note that she could be placed on Lovenox, but she would like to speak to her OB/ TOP TILE DECORATOR. She is denying any chest pain or shortness of breath. 1410: I rediscussed her concerns for blood clots, and she wants to go ahead with Lovenox injections. She will call her OB doctor in two days. I discussed the risk of bleeding and symptoms that require immediate returns. The patient will be discharged home. 1415: Lovenox 40mg SQ Medical Decision Differential: Sepsis, Infectious (UTI/Pneumonia/Meningitis/etc), Metabolic/ Electrolyte Abnormality, Cardiac, Hepatic, Endocrine, Toxicologic, Neurologic, amongst other pathologies entertained. 27 yr old female arrives for evaluation of 3 weeks nausea, vomiting, and generalized weakness. Admits chest soreness as well, though admits this along with generalized weakness ongoing for months and already evaluated multiple times in ED and hospitalized without cause. Today primary issues is n/v. Exam is completely benign without abdominal pain nor TTP. She has no bleeding nor vaginal discharge. She has unremarkable labs and EKG other than HCG is 25k. Consistent with 1 month . Without other symptoms no indication for US . She will follow up with Radio Engineering Teacher Tuesday. She has long history of clotting disorder and clots with previously. Will start on BID Lovenox 40mg sq after discussing with Pharmacists and patient agreeable to this plan. Given initial dose here and 5 days Rx. She is aware of this from previous usage and tolerated it well. Stable and breathing well at discharge. Aware RTED with worsening symptoms or other concerns. Medication Reconcilliation Current Medication List: was personally reviewed by me Blood Pressure Screening Patient's blood pressure: Normal blood pressure Impression Primary Impression: Additional Impression: Nausea & vomiting Scribe Attestation The scribe's documentation has been prepared under my direction and personally reviewed by me in its entirety. I confirm that the note above accurately reflects all work, treatment, procedures, and medical decision making performed by me. Departure Information Dispostion Home / Self-Care Prescriptions Enoxaparin (Lovenox) 40 Mg/0.4 Ml Inj 40 MG SQ Q12H, #10 SYR Prov: Franc Varma M.D. 08/06/17 Ondasetron Odt (ZOFRAN ODT) 4 Mg Tab 4-8 MG SL Q6H for Nausea, #20 TAB Prov: Franc Varma M.D. 08/06/17 Referrals Ronel Hector DO (PCP) Forms HOME CARE DOCUMENTATION FORM, IMPORTANT VISIT INFORMATION, WORK / SCHOOL INSTRUCTIONS Patient Instructions My [facility] Additional Instructions Given your history it is of utmost importance you contact your primary provider or OB provider as soon as possible to discuss your and Lovenox usage. Return immediately if difficulty breathing, chest pain, passing out, abdominal pain or other concerns. Do not taken any NSAID medications (motrin, ibuprofen, Aleve, naproxen, etc). Problem Qualifiers
[2017-08-06 12:42] LABS: BASO % 0.2 %; BASO ABS # 0.02 K/uL (0-0.2); COMPLETE YES; EOS % 0.9 %; HEMATOCRIT 38.1 % (37-47); IG% 0.3 %; LYMPH % 16.2 %; LYMPH ABS # 1.93 K/uL (1.2-3.4); MEAN CELL VOLUME 86.8 fL (80-100); MEAN CORPUSCULAR HEMOGLOBIN 29.8 pg (25-34); MEAN CORPUSCULAR HGB CONC 34.4 g/dl (32-36); MEAN PLATELET VOLUME 9.4 fL (7.4-10.4); MONO % 6.8 %; NEUT % 75.6 %; PLATELET COUNT 292 K/uL (130-400); RED BLOOD COUNT 4.39 M/uL (4.2-5.4)
[2017-08-06 13:00] LABS: BLOOD UREA NITROGEN 11 mg/dl (7-18); BUN/CREATININE RATIO 13.2 (10-20); CALCIUM 8.7 mg/dl (8.5-10.1); CARBON DIOXIDE 24 mmol/L (21-32); CHLORIDE 106 mmol/L (98-107); CREATININE 0.81 mg/dl (0.60-1.20); GLUCOSE 81 mg/dl (70-99); MAGNESIUM 2.1 mg/dl (1.8-2.4); POTASSIUM 3.6 mmol/L (3.5-5.1); SODIUM 137 mmol/L (136-145)
[2017-08-06 13:00] LABS: URINE APPEARANCE CLEAR (CLEAR); URINE BILIRUBIN NEG (NEG); URINE COLOR YELLOW; URINE EPITHELIAL CELL AUTO 20-30 /lpf (0-5); URINE NITRITE NEG (NEG); URINE SPECIFIC GRAVITY 1.015 (1.000-1.030); UROBILINOGEN NEG (NEG); ZZUR CULT IF INDIC CLEAN CATCH NO
[2017-08-06 13:01] LABS: MANUAL MICROSCOPIC REQUIRED? NO; REVIEW REQ? NO
[2017-08-06 13:08] LABS: PREG INTERNAL NEGATIVE QC NEG CLEAR BACKGROUND; PREG INTERNAL POSITIVE QC POS CONTROL LINE
[2017-08-06] MEDS ORDERED: ONDA4TAB10 SL (13:37)
[2017-08-06] MEDS ORDERED: ENOX40IN SQ (14:10)
[2017-08-06] MEDS ORDERED: ENOXAPARIN 40 MG/0.4 ML SYR SQ ONE (14:15)
[2017-08-06 14:39] VITALS: BP 119/81; PULSE 86; O2SAT 98
== END 2017-08-06 14:42 | disposition home or self-care (01) ==
LOC: C.EDB 12:17 → C.EDC 14:42
DX: Z33.1 Pregnant state, incidental (principal); Z3A.01 Less than 8 weeks gestation of pregnancy; J45.909 Unspecified asthma, uncomplicated; K21.9 Gastro-esophageal reflux disease without esophagitis; E03.9 Hypothyroidism, unspecified; Z83.3 Family history of diabetes mellitus; Z83.79 Family history of other diseases of the digestive system; Z82.49 Family history of ischemic heart disease and other diseases of the circulatory system; Z83.6 Family history of other diseases of the respiratory system; Z84.1 Family history of disorders of kidney and ureter

== ENCOUNTER 2017-09-12 19:40 | Emergency (ER) | payer OTHER ==
[~2017-09-12] VITALS: Ht 175.3 cm; Wt 148.1 kg
[~2017-09-12 19:40] MED LIST changes: +ENOX40IN SQ; -FOLI1TAB7 PO; -LANS30CA63 PO; -LEVO75TA5 PO; +ONDA4TAB10 SL
[2017-09-12 19:44] VITALS: TEMP 36.6; Ht 175.3 cm; Wt 148.1 kg
[2017-09-12 20:35] LABS: HEMATOCRIT 34.6 % (37-47); MEAN CELL VOLUME 86.5 fL (80-100); MEAN CORPUSCULAR HEMOGLOBIN 30.5 pg (25-34); MEAN CORPUSCULAR HGB CONC 35.3 g/dl (32-36); MEAN PLATELET VOLUME 9.5 fL (7.4-10.4); PLATELET COUNT 303 K/uL (130-400); WHITE BLOOD COUNT 7.76 K/uL (4.8-10.8)
[2017-09-12 20:39] LABS: URINE APPEARANCE CLEAR (CLEAR); URINE BILIRUBIN NEG (NEG); URINE COLOR YELLOW; URINE NITRITE NEG (NEG); URINE SPECIFIC GRAVITY 1.028 (1.000-1.030); UROBILINOGEN NEG (NEG)
[2017-09-12 20:41] LABS: MANUAL MICROSCOPIC REQUIRED? NO; REVIEW REQ? NO
[2017-09-12 20:45] LABS: PROTHROMBIN TIME (PATIENT) 10.2 SECONDS (9.0-12.0)
[2017-09-12 20:52] LABS: BUN/CREATININE RATIO 17.9 (10-20); CALCIUM 8.7 mg/dl (8.5-10.1); CREATININE 0.62 mg/dl (0.60-1.20); POTASSIUM 3.3 mmol/L (3.5-5.1)
[2017-09-12 20:55] LABS: ALB/GLOB RATIO 0.9 (0.9-2)
[2017-09-12] MEDS ORDERED: ENOX80IN SQ (21:03)
[2017-09-12] MEDS ORDERED: SYN75 PO (21:03)
--- NOTE | 2017-09-12 21:11 | DIAGNOSTIC IMAGING REPORT ---
LIMITED (US) CLINICAL HISTORY: EVAL IUP, 11W 4D cramping. COMPARISON STUDY: No previous studies for comparison. TECHNIQUE: Transabdominal sonography of the pelvis was performed. FINDINGS: Single viable intrauterine gestation is noted with a crown-rump length of 4.4 cm which corresponds to an estimated gestational age of 11 weeks and 1 day. Please note that a dedicated anatomical survey was not performed. heart rate was normal 149 bpm. Neither ovary was visualized. Study was compromised by suboptimal penetration. The cervix was not assessed on this exam. No adnexal mass was identified. IMPRESSION: 1. Single viable intrauterine gestation with estimated gestational age of 11 weeks and 1 day. 2. Normal heart rate of 149 bpm. 3. Study compromised by suboptimal penetration. Nonvisualization of the ovaries. Electronically signed by: Mik Arredondo M.D. 09/12/2017 9:09 PM Dictated Date/Time: 09/12/2017 9:07 PM
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
[2017-09-12 21:33] VITALS: BP 168/95; PULSE 82; O2SAT 100
== END 2017-09-12 21:33 | disposition home or self-care (01) ==
LOC: C.EDB 19:43
DX: O26.91 Pregnancy related conditions, unspecified, first trimester (principal); R10.2 Pelvic and perineal pain; E03.9 Hypothyroidism, unspecified; K21.9 Gastro-esophageal reflux disease without esophagitis; J45.909 Unspecified asthma, uncomplicated; Z86.718 Personal history of other venous thrombosis and embolism; Z90.49 Acquired absence of other specified parts of digestive tract; Z96.659 Presence of unspecified artificial knee joint; Z79.899 Other long term (current) drug therapy; Z88.0 Allergy status to penicillin; Z88.1 Allergy status to other antibiotic agents; Z88.5 Allergy status to narcotic agent; Z88.6 Allergy status to analgesic agent; Z88.8 Allergy status to other drugs, medicaments and biological substances

== ENCOUNTER 2017-09-25 14:10 | Observation (INO) | payer OTHER ==
[~2017-09-25] VITALS: Ht 175.3 cm; Wt 144.5 kg
[~2017-09-25 14:10] MED LIST changes: -ENOX40IN SQ; +ENOX80IN SQ; +LRT5 PO; +SYN75 PO
[2017-09-25] MEDS ORDERED: SODIUM CHLORIDE 0.9% 1000ML 1,000 ML IV STA (14:24)
[2017-09-25] MEDS ORDERED: ONDANSETRON INJ 2 MG/ML 2 ML VIAL IV STA ×2 (14:24→17:55)
[2017-09-25] MEDS ORDERED: ALUMINUM/MAGNESIUM SUSP 30 ML UDC PO STA (14:43)
[2017-09-25 14:54] LABS: BASO % 0.1 %; BASO ABS # 0.01 K/uL (0-0.2); EOS % 0.5 %; EOS ABS # 0.04 K/uL (0-0.5); HEMATOCRIT 37.9 % (37-47); HEMOGLOBIN 13.3 g/dL (12.0-16.0); IG# 0.01 K/uL (0.00-0.02); LYMPH % 23.5 %; MEAN CELL VOLUME 86.1 fL (80-100); MEAN CORPUSCULAR HEMOGLOBIN 30.2 pg (25-34); MEAN CORPUSCULAR HGB CONC 35.1 g/dl (32-36); MEAN PLATELET VOLUME 9.6 fL (7.4-10.4); MONO % 6.4 %; MONO ABS # 0.49 K/uL (0.11-0.59); NEUT % 69.4 %; NEUT ABS # 5.31 K/uL (1.4-6.5); PLATELET COUNT 275 K/uL (130-400); RED CELL DISTRIBUTION WIDTH CV 13.8 % (11.5-14.5); RED CELL DISTRIBUTION WIDTH SD 43.7 fL (36.4-46.3); WHITE BLOOD COUNT 7.66 K/uL (4.8-10.8)
[2017-09-25 15:03] LABS: PTT PATIENT 26.1 SECONDS (21.0-31.0)
[2017-09-25 15:12] LABS: ALBUMIN 3.3 gm/dl (3.4-5.0); ALT/SGPT 34 U/L (12-78); AST/SGOT 11 U/L (15-37); BLOOD UREA NITROGEN 7 mg/dl (7-18); CALCIUM 9.4 mg/dl (8.5-10.1); CARBON DIOXIDE 25 mmol/L (21-32); CREATININE 0.67 mg/dl (0.60-1.20); GLUCOSE 86 mg/dl (70-99); LIPASE 55 U/L (73-393); POTASSIUM 3.4 mmol/L (3.5-5.1); SODIUM 134 mmol/L (136-145)
[2017-09-25 15:15] LABS: ALKALINE PHOSPHATASE 72 U/L (45-117); TOTAL PROTEIN 7.3 gm/dl (6.4-8.2)
--- NOTE | 2017-09-25 16:00 | DIAGNOSTIC IMAGING REPORT ---
GALLBLADDER-ABD LIMITED CLINICAL HISTORY: severe epi pain. vomit blood. no gbag. preg 13wks pain. Nausea. TECHNIQUE: Ultrasound COMPARISON STUDY: None FINDINGS: Prior cholecystectomy. Common bile duct 6 mm. Liver is uniform. Pancreas and right kidney are unremarkable. IMPRESSION: Negative study status post cholecystectomy. The above report was generated using voice recognition software. It may contain grammatical, syntax or spelling errors. Electronically signed by: Sudeep Anand M.D. 09/25/2017 3:59 PM Dictated Date/Time: 09/25/2017 3:58 PM
[2017-09-25] MEDS ORDERED: HYDROmorphone INJ 0.5 MG/0.5 ML SYR IV STA (17:08)
[2017-09-25] MEDS ORDERED: ALBUTEROL HFA 8 GM INHALER INH PRN (18:00)
[2017-09-25] MEDS ORDERED: IV FLUIDS COMPLETED PRN (18:15)
[2017-09-25] MEDS ORDERED: HYDROmorphone INJ 0.5 MG/0.5 ML SYR IV PRN (18:15)
[2017-09-25] MEDS ORDERED: PANTOprazole INJ 80 MG in DEXTROSE 5% 100ML IV SCH (18:45)
[2017-09-25] MEDS ORDERED: PANTOprazole INJ 40 MG in DEXTROSE 5% 100ML IV SCH (19:00)
[2017-09-25 19:20] VITALS: BP 131/79; PULSE 68; TEMP 36.7; O2SAT 100; Ht 175.3 cm; Wt 144.5 kg
[2017-09-25] MEDS: ONDANSETRON INJ 2 MG/ML 2 ML VIAL IV PRN (19:49)
[2017-09-25 20:06] LABS: HEMATOCRIT 34.5 % (37-47); HEMOGLOBIN 12.1 g/dL (12.0-16.0)
--- NOTE | 2017-09-25 20:29 | HISTORY & PHYSICAL EXAMINATION ---
DATE OF ADMISSION: 09/25/2017 PRIMARY CARE PHYSICIAN: Ronel Hector DO. CHIEF COMPLAINT: Vomiting with vomitus containing blood. HISTORY OF PRESENT COMPLAINT: She is a 27-year-old female, obese, 13 weeks' with a history of DVT, on Lovenox, apparently has been feeling reasonably unwell for the last few days. She had fluid about 1 week ago and she recovered from that. She woke up around 1:00 a.m. with some pain in the stomach and following that, she vomited and the vomitus contained fresh blood x1. She continues to have abdominal discomfort and pain, and following that, she had 2 more vomitings and both time, contained blood, but to a lesser extent. She came to ER for further evaluation. No more vomiting and no more nauseas and she was still having some pain. She received some pain medications and the pain was reasonably controlled. Her hemoglobin is 13.3 with hematocrit 37.9. BUN is 7. She has low potassium, but given the history of hematemesis and being high risk, she was admitted to telemetry unit for continuation of care for observation. PAST MEDICAL HISTORY: Significant for DVT and has history of miscarriage, thought secondary to blood clot. She does not have any clotting problem, but she has been put on Lovenox during this as a prophylaxis. She has hypothyroidism, esophageal reflux, obesity, eczema, mostly extremities. PAST SURGICAL HISTORY: Significant for minor knee surgery and cholecystectomy. FAMILY HISTORY: No family history of clot, but one of her grandmom did have a clot disorder. Her parents do have COPD and there is smoker. SOCIAL HISTORY: She is single. She has 1 child. She is 13 weeks right now. Does not smoke and does not drink and reasonably ambulant. ALLERGIES: SHE IS ALLERGIC TO TOO MANY MEDICATIONS INCLUDING HEPARIN, BLUE DARNELL, CEFTRIAXONE, OXYCODONE, PENICILLIN, CODEINE, MORPHINE, AMOXICILLIN, DUST, GARDASIL, VICRYL SUTURES, VANCOMYCIN, AND TRAMADOL. MEDICATIONS: As an outpatient, she has been on cyclobenzaprine 5 mg t.i.d. p.r.n., Bentyl 10 to 20 mg q.i.d. p.r.n., Lovenox 80 mg daily, Zofran as directed, ranitidine 300 mg daily, albuterol as needed 2 puffs 4 times daily, and levothyroxine 75 mcg. PHYSICAL EXAMINATION: GENERAL: On examination in the Emergency Room, she was not having any distress except minimal pain. VITAL SIGNS: Temperature 36.6, pulse is 85, blood pressure 146/69, and saturation 100% on room air. HEENT: Unremarkable. NECK: Supple. No JVD. No bruit. CHEST: Clear to auscultate bilaterally. HEART: S1, S2 regular. ABDOMEN: Soft, mildly tender in the epigastrium. Bowel sounds present. EXTREMITIES: Trace edema bilaterally. She has eczema involving the extensor surface of the lower extremities. CENTRAL NERVOUS SYSTEM: She was alert, awake, oriented x3. No focal sensory and/or motor deficit appreciated. LABORATORY DATA: Labs noted today white count was 7.66, H&H 13.3/37.9, and platelets was 275. Sodium 134, potassium 3.4, chloride 104, carbon dioxide 25, BUN 7, and creatinine 0.67. LFTs unremarkable. Lipase 55. HCG was 79,418. Coagulation profile unremarkable. UA examination pending. Gallbladder ultrasound negative for any gallstones for which she had cholecystectomy. IMPRESSION AND PLAN: 1. Hematemesis, 3 separate occasions, but due to the last occasion, the amount of blood decreased. It was more or less coffee-ground vomiting. She will be admitted to telemetry unit for observation. H&H q.4 hourly for 6 sets and GI consultation in case she continues to vomit and require some intervention. She will be given Protonix intravenous infusion. Lovenox will be on hold, but I think that will be given if there is no more bleeding and hemoglobin is stable. 2. Thirteen weeks . She does not have any abdominal pain at this time. She wants to hear heart sound that will be arranged while in the hospital after talking to OBGYN Department. 3. Deep venous thrombosis, both legs and she has been on Lovenox which should be continued throughout 80 mg a day, on hold right now, but try to administer as soon as feasible. 4. Hypothyroidism. Continue with replacement. 5. Code status - she will be a full code. 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 MTDD
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
--- NOTE | 2017-09-25 20:43 | DIAGNOSTIC IMAGING REPORT ---
LIMITED (US) CLINICAL HISTORY: at 13 weeks please document FHR 5 body TECHNIQUE: Ultrasound COMPARISON STUDY: 09/12/2017 FINDINGS: Single, viable intrauterine . Estimated gestational age is 13 weeks 1 day. heart rate is confirmed at 1 51 bpm. The maternal cervix is closed. IMPRESSION: Single, viable intrauterine . heart rate is 151 bpm. Normal interval growth from the prior study The above report was generated using voice recognition software. It may contain grammatical, syntax or spelling errors. Electronically signed by: Sudeep Anand M.D. 09/25/2017 8:42 PM Dictated Date/Time: 09/25/2017 8:40 PM
[2017-09-25] MEDS: NSS + 20MEQ KCL 1000ML 1,000 ML IV SCH (21:05)
[2017-09-25] MEDS: PANTOprazole INJ 40 MG in DEXTROSE 5% 100ML IV SCH (23:14)
[2017-09-25 23:16] VITALS: BP 117/64; PULSE 75; TEMP 36.5; O2SAT 98
[2017-09-25 23:50] LABS: HEMATOCRIT 34.1 % (37-47); HEMOGLOBIN 11.6 g/dL (12.0-16.0)
[2017-09-26] VITALS (9 sets, daily range): BP systolic 106–115; BP diastolic 62–70; PULSE 62–75; TEMP 36.6–36.7; O2SAT 95–100
[2017-09-26] MEDS: ONDANSETRON INJ 2 MG/ML 2 ML VIAL IV PRN ×3 (03:04→17:12)
[2017-09-26 04:09] LABS: HEMATOCRIT 32.2 % (37-47); HEMOGLOBIN 11.2 g/dL (12.0-16.0); MEAN CELL VOLUME 86.8 fL (80-100); MEAN CORPUSCULAR HEMOGLOBIN 30.2 pg (25-34); MEAN CORPUSCULAR HGB CONC 34.8 g/dl (32-36); PLATELET COUNT 222 K/uL (130-400); RED CELL DISTRIBUTION WIDTH CV 13.9 % (11.5-14.5); RED CELL DISTRIBUTION WIDTH SD 44.1 fL (36.4-46.3); WHITE BLOOD COUNT 5.97 K/uL (4.8-10.8)
[2017-09-26 04:29] LABS: CALCIUM 8.3 mg/dl (8.5-10.1); CREATININE 0.59 mg/dl (0.60-1.20); POTASSIUM 3.5 mmol/L (3.5-5.1)
[2017-09-26] MEDS: PANTOprazole INJ 40 MG in DEXTROSE 5% 100ML IV SCH ×4 (06:06→20:59)
[2017-09-26] MEDS: LEVOTHYROXINE 75 MCG TAB PO SCH (06:19)
[2017-09-26 07:57] LABS: HEMATOCRIT 33.9 % (37-47); HEMOGLOBIN 11.4 g/dL (12.0-16.0)
[2017-09-26] MEDS: NSS + 20MEQ KCL 1000ML 1,000 ML IV SCH ×2 (08:47→22:23)
--- NOTE | 2017-09-26 10:21 | Gastrointestinal Consultation ---
Gastrointestinal Consultation Date of Consultation: Sep 26, 2017 Attending Physician: Dr. Owens Consulting Physician: Dr. Clemens Reason for Consultation: hematemesis History of Present Illness Patient is a 27 year old female who is 13-14 weeks with a history of DVT on Lovenox who presented to the ER with nausea followed by vomiting then some bright red hematemesis. H/H dropped slightly but no vimiting since prior to admission. No abd pain. No nausea this AM. Worried about not being on her Lovenox. On ranitidine 300 mg at home. Not on anti-emetics. No history of GI bleed. Past Medical/Surgical History Medical Problems: (1) Abdominal cramping affecting Status: Acute (2) Asthma Status: Chronic (3) GERD (gastroesophageal reflux disease) Status: Chronic (4) Hematemesis Status: Acute (5) History of DVT of lower extremity Status: Chronic (6) Hypercoagulable state Permanent Comment: negative hypercoag workup x 2 per patient Status: Chronic (7) Hypothyroidism Status: Chronic (8) Migraine headache Status: Chronic (9) Obesity Status: Chronic Past Medical History: hypothyroidism h/o DVT Past Surgical History: reviewed Family History Diabetes mellitus FH: cancer FH: gallbladder disease FH: heart disease FH: lung disease Hypertension Kidney disease or stones Seizures Social History Smoking Status: Never Smoker Alcohol Use: other Drug Use: none Marital Status: single Housing Status: lives with family Occupation Status: employed Allergies Coded Allergies: Heparin (Verified Allergy, Severe, CELLULITIS AT INJECTION SITES, 09/25/17 ) Blueberry (Verified Allergy, Intermediate, HIVES, 09/25/17) Ceftriaxone (Verified Allergy, Intermediate, itching,HIVES, 09/25/17) Cephalexin (Verified Allergy, Intermediate, ittchy, 09/25/17) Oxycodone (Verified Allergy, Intermediate, hives n/v, 09/25/17) Penicillins (Verified Allergy, Intermediate, AMOXICILLIN SOB, TACHYCARDIA & HIVES, 09/25/17) Codeine (Verified Allergy, Mild, RASH, 09/25/17) Morphine (Verified Allergy, Mild, ABDOMINAL PAIN,DIARRHEA,HIVES NAUSEA AND VOMITING, 09/25/17) Amoxicillin (Verified Allergy, Unknown, HIVES,RASH HIGH BP,FAST HEART RATE ,DIARRHEA,SOB, 09/25/17) Dust (Verified Allergy, Unknown, WHEEZING,SOB, 09/25/17) Quadrivalent HPV (6,11,16,18) Recom (Verified Allergy, Unknown, RASH RAPID HEART BEAT, 09/25/17) Acetaminophen (Verified Adverse Reaction, Severe, ELEVATED LFTS WITH MINIMAL DOSES, 09/25/17) Unclassified Drugs (Verified Adverse Reaction, Intermediate, Vicryl Sutures - infection outcome x 2, 09/25/17) PER PATIENT, DEVELOPED INFECTION TWICE FOLLOWING PROCEDURES INVOLVING THE USE OF VICRYL STITCHING Vancomycin (Verified Adverse Reaction, Intermediate, ITCHING,SOB, 09/25/17 ) Tramadol (Verified Adverse Reaction, Mild, nausea, vomiting, 09/25/17) Current Medications Home Meds and Scripts Medications Dose Route/Sig Max Daily Dose Days Date Category Dose Instructions Synthroid (Levothyroxine Sodium) 75 Mcg Tab 75 Mcg PO QAM 09/12/17 Reported Lovenox (Enoxaparin Sodium) 80 Mg/0.8 Ml Inj 80 Mg SQ QAM 09/12/17 Reported Zofran Odt (Ondansetron HCl) 4 Mg Tab 4-8 Mg SL Q6H 08/06/17 Rx Zantac (Ranitidine HCl) 300 Mg Tab 300 Mg PO DAILY PRN 04/20/17 Reported Ventolin Hfa (Albuterol) 200 Puffs/49779 Mcg Aers 2 Puffs INH Q6H PRN 12/05/16 Reported Bentyl (Dicyclomine Hcl) 10 Mg Cap 10-20 Mg PO QID PRN 10/06/15 Reported Flexeril (Cyclobenzaprine Hcl) 5 Mg Tab 5 Mg PO TID PRN 10/06/15 Reported PRN Review of Systems 12 systems reviewed and negative except as noted Physical Exam Date Time Temp Pulse Resp B/P (MAP) Pulse Ox O2 Delivery O2 Flow Rate FiO2 09/26/17 08:16 36.6 66 18 106/66 (79) 99 Room Air 09/26/17 08:00 98 Room Air 09/26/17 04:00 Room Air 09/26/17 03:02 36.7 62 18 110/69 (83) 98 Room Air 09/26/17 00:01 Room Air 09/25/17 23:16 36.5 75 18 117/64 (81) 98 Room Air 09/25/17 19:20 36.7 68 20 131/79 100 Room Air 09/25/17 19:09 69 139/76 100 09/25/17 17:24 85 146/69 100 Room Air 09/25/17 15:39 70 18 168/79 100 Room Air 09/25/17 14:13 36.6 86 18 133/121 100 Room Air General Appearance: WD/WN, no apparent distress Eyes: normal inspection, PERRL ENT: normal ENT inspection, hearing grossly normal, pharynx normal Neck: supple, no JVD Respiratory/Chest: chest non-tender, lungs clear, normal breath sounds, no accessory muscle use Cardiovascular: regular rate, rhythm, no edema, no murmur Abdomen: normal bowel sounds, non tender, soft Extremities: normal range of motion, non-tender, no pedal edema Neurologic/Psych: hall coordinator II-XII nml as tested, no motor/sensory deficits, alert, normal mood/affect, oriented x 3 Skin: normal color, no jaundice, no rash Laboratory Results Last 24 Hours Test 09/25/17 14:40 09/25/17 17:26 09/25/17 20:00 09/25/17 23:40 White Blood Count 7.66 K/uL Red Blood Count 4.40 M/uL Hemoglobin 13.3 g/dL 12.1 g/dL 11.6 g/dL Hematocrit 37.9 % 34.5 % 34.1 % Mean Corpuscular Volume 86.1 fL Mean Corpuscular Hemoglobin 30.2 pg Mean Corpuscular Hemoglobin Concent 35.1 g/dl Platelet Count 275 K/uL Mean Platelet Volume 9.6 fL Neutrophils (%) (Auto) 69.4 % Lymphocytes (%) (Auto) 23.5 % Monocytes (%) (Auto) 6.4 % Eosinophils (%) (Auto) 0.5 % Basophils (%) (Auto) 0.1 % Neutrophils # (Auto) 5.31 K/uL Lymphocytes # (Auto) 1.80 K/uL Monocytes # (Auto) 0.49 K/uL Eosinophils # (Auto) 0.04 K/uL Basophils # (Auto) 0.01 K/uL RDW Standard Deviation 43.7 fL RDW Coefficient of Variation 13.8 % Immature Granulocyte % (Auto) 0.1 % Immature Granulocyte # (Auto) 0.01 K/uL Prothrombin Time 10.1 SECONDS Prothromb Time International Ratio 1.0 Activated Partial Thromboplast Time 26.1 SECONDS Partial Thromboplastin Ratio 1.0 Sodium Level 134 mmol/L Potassium Level 3.4 mmol/L Chloride Level 104 mmol/L Carbon Dioxide Level 25 mmol/L Anion Gap 5.0 mmol/L Blood Urea Nitrogen 7 mg/dl Creatinine 0.67 mg/dl Est Creatinine Clear Calc Drug Dose 170.1 ml/min Estimated GFR () 140.6 Estimated GFR (Non- 121.3 BUN/Creatinine Ratio 10.3 Random Glucose 86 mg/dl Calcium Level 9.4 mg/dl Total Bilirubin 0.3 mg/dl Direct Bilirubin < 0.1 mg/dl Aspartate Amino Transf (AST/SGOT) 11 U/L Alanine Aminotransferase (ALT/SGPT) 34 U/L Alkaline Phosphatase 72 U/L Total Protein 7.3 gm/dl Albumin 3.3 gm/dl Lipase 55 U/L Human Chorionic Gonadotropin, Quant 67466 mIU/mL Urine Color YELLOW Urine Appearance CLEAR Urine pH 5.0 Urine Specific [place] 1.013 Urine Protein NEG Urine Glucose (UA) NEG Urine Ketones NEG Urine Occult Blood NEG Urine Nitrite NEG Urine Bilirubin NEG Urine Urobilinogen NEG Urine Leukocyte Esterase NEG Urine WBC (Auto) 1-5 /hpf Urine RBC (Auto) 0-4 /hpf Urine Hyaline Casts (Auto) 1-5 /lpf Urine Epithelial Cells (Auto) 10-20 /lpf Urine Bacteria (Auto) NEG Test 09/26/17 04:00 09/26/17 07:48 White Blood Count 5.97 K/uL Red Blood Count 3.71 M/uL Hemoglobin 11.2 g/dL 11.4 g/dL Hematocrit 32.2 % 33.9 % Mean Corpuscular Volume 86.8 fL Mean Corpuscular Hemoglobin 30.2 pg Mean Corpuscular Hemoglobin Concent 34.8 g/dl RDW Standard Deviation 44.1 fL RDW Coefficient of Variation 13.9 % Platelet Count 222 K/uL Mean Platelet Volume 9.0 fL Sodium Level 137 mmol/L Potassium Level 3.5 mmol/L Chloride Level 108 mmol/L Carbon Dioxide Level 23 mmol/L Anion Gap 6.0 mmol/L Blood Urea Nitrogen 7 mg/dl Creatinine 0.59 mg/dl Est Creatinine Clear Calc Drug Dose 221.9 ml/min Estimated GFR () 146.6 Estimated GFR (Non- 126.5 BUN/Creatinine Ratio 11.3 Random Glucose 87 mg/dl Calcium Level 8.3 mg/dl Impression Patient is a 27 year old female with h/o DVT on Lovenox and 14 weeks admitted after several days of feeling like she had a GI bug then with some emesis containing blood yesterday prior to admission. None since. H/H with mild drop with hydration. Feeling better today. Plan - Advance diet. - Resume anticoagulation - Carafate suspension QID for 1 week. - Can increase ranitidine to BID vs start PPI. Will defer to primary service an her OB regarding that choice. - OK to discharge from GI standpoint. - Will need f/u with PCP and OB. - Please call with questions.
[2017-09-26 12:03] LABS: HEMATOCRIT 36.2 % (37-47); HEMOGLOBIN 12.6 g/dL (12.0-16.0)
[2017-09-26] MEDS: ENOXAPARIN 80 MG/0.8 ML SYR SQ SCH (12:31)
[2017-09-26 16:21] LABS: HEMATOCRIT 32.9 % (37-47); HEMOGLOBIN 11.4 g/dL (12.0-16.0)
[2017-09-26] MEDS: SUCRALFATE 1 GM TAB PO SCH ×2 (17:12→20:14)
--- NOTE | 2017-09-26 17:14 | Progress Note ---
Internal Med Progress Note Date of Service: Sep 26, 2017. Provider Documentation: SUBJECTIVE: no more nausea or vomiting no abdominal pain no sob want to eat wants to have Lovenox shots OBJECTIVE: Vital Signs-as noted below Exam: General-Alert and awake. Not in distress ENT-Normal hearing Neck-no neck masses supple Lungs-cta b/l no wheezing no crackles Heart-S1 and S2 heard regular rate and rthym, no murmurs Abdomen-Soft bowel sounds present non tender no distension Extremities-no edema no erythema Neuro-alert and awake moves extremities Lab data as noted below. ASSESSMENT & PLAN: 1. Hematemesis, 3 separate occasions, but due to the last occasion, resolved on ppi drip plan for Carafate and Zantac appreciate Gi inputs started on diet restarted Lovenox will monitor. 2. Thirteen weeks . US fine. 3. Deep venous thrombosis, both legs and she has been on Lovenox which should be continued throughout 80 mg a day, which is restarted as her hematemesis stopped and hb stable. 4. Hypothyroidism. on Synthroid 5. Code status - full code. DISPOSITION possible d/c in am Vital Signs: Date Time Temp Pulse Resp B/P (MAP) Pulse Ox O2 Delivery O2 Flow Rate FiO2 09/26/17 16:00 97 Room Air 09/26/17 15:04 36.7 75 18 111/68 (82) 98 Room Air 09/26/17 12:00 95 Room Air 09/26/17 10:33 36.7 70 18 112/62 (79) 100 Room Air 09/26/17 08:16 36.6 66 18 106/66 (79) 99 Room Air 09/26/17 08:00 98 Room Air 09/26/17 04:00 Room Air 09/26/17 03:02 36.7 62 18 110/69 (83) 98 Room Air 09/26/17 00:01 Room Air 09/25/17 23:16 36.5 75 18 117/64 (81) 98 Room Air 09/25/17 19:20 36.7 68 20 131/79 100 Room Air 09/25/17 19:09 69 139/76 100 09/25/17 17:24 85 146/69 100 Room Air Lab Results: Results Past 24 Hours Test 09/25/17 17:26 09/25/17 20:00 09/25/17 23:40 09/26/17 04:00 Range/Units Urine Color YELLOW Urine Appearance CLEAR CLEAR Urine pH 5.0 4.5-7.5 Urine Specific [place] 1.013 1.000-1.030 Urine Protein NEG NEG Urine Glucose (UA) NEG NEG Urine Ketones NEG NEG Urine Occult Blood NEG NEG Urine Nitrite NEG NEG Urine Bilirubin NEG NEG Urine Urobilinogen NEG NEG Urine Leukocyte Esterase NEG NEG Urine WBC (Auto) 1-5 0-5 /hpf Urine RBC (Auto) 0-4 0-4 /hpf Urine Hyaline Casts (Auto) 1-5 0-5 /lpf Urine Epithelial Cells (Auto) 10-20 0-5 /lpf Urine Bacteria (Auto) NEG NEG Hemoglobin 12.1 11.6 11.2 12.0-16.0 g/dL Hematocrit 34.5 34.1 32.2 37-47 % White Blood Count 5.97 4.8-10.8 K/uL Red Blood Count 3.71 4.2-5.4 M/uL Mean Corpuscular Volume 86.8 80-100 fL Mean Corpuscular Hemoglobin 30.2 25-34 pg Mean Corpuscular Hemoglobin Concent 34.8 32-36 g/dl RDW Standard Deviation 44.1 36.4-46.3 fL RDW Coefficient of Variation 13.9 11.5-14.5 % Platelet Count 222 130-400 K/uL Mean Platelet Volume 9.0 7.4-10.4 fL Sodium Level 137 136-145 mmol/L Potassium Level 3.5 3.5-5.1 mmol/L Chloride Level 108 98-107 mmol/L Carbon Dioxide Level 23 21-32 mmol/L Anion Gap 6.0 3-11 mmol/L Blood Urea Nitrogen 7 7-18 mg/dl Creatinine 0.59 0.60-1.20 mg/dl Est Creatinine Clear Calc Drug Dose 221.9 ml/min Estimated GFR () 146.6 Estimated GFR (Non- 126.5 BUN/Creatinine Ratio 11.3 10-20 Random Glucose 87 70-99 mg/dl Calcium Level 8.3 8.5-10.1 mg/dl Test 09/26/17 07:48 09/26/17 11:48 09/26/17 15:58 Range/Units Hemoglobin 11.4 12.6 11.4 12.0-16.0 g/dL Hematocrit 33.9 36.2 32.9 37-47 %
[2017-09-27] MEDS: PANTOprazole INJ 40 MG in DEXTROSE 5% 100ML IV SCH ×2 (02:04→07:36)
[2017-09-27 03:12] VITALS: BP 136/73; PULSE 74; TEMP 36.9; O2SAT 99
[2017-09-27] MEDS: LEVOTHYROXINE 75 MCG TAB PO SCH (05:18)
[2017-09-27 07:10] VITALS: BP 108/70; PULSE 73; TEMP 36.9; O2SAT 98
[2017-09-27 07:19] LABS: BASO % 0.2 %; BASO ABS # 0.01 K/uL (0-0.2); EOS % 1.1 %; EOS ABS # 0.07 K/uL (0-0.5); HEMATOCRIT 33.6 % (37-47); HEMOGLOBIN 11.3 g/dL (12.0-16.0); IG# 0.01 K/uL (0.00-0.02); LYMPH % 28.2 %; LYMPH ABS # 1.83 K/uL (1.2-3.4); MEAN CORPUSCULAR HEMOGLOBIN 29.3 pg (25-34); MEAN CORPUSCULAR HGB CONC 33.6 g/dl (32-36); MEAN PLATELET VOLUME 9.6 fL (7.4-10.4); MONO % 6.8 %; MONO ABS # 0.44 K/uL (0.11-0.59); NEUT % 63.5 %; NEUT ABS # 4.12 K/uL (1.4-6.5); PLATELET COUNT 253 K/uL (130-400); RED CELL DISTRIBUTION WIDTH CV 13.9 % (11.5-14.5); RED CELL DISTRIBUTION WIDTH SD 44.1 fL (36.4-46.3); WHITE BLOOD COUNT 6.48 K/uL (4.8-10.8)
[2017-09-27 07:57] LABS: BLOOD UREA NITROGEN 6 mg/dl (7-18); CALCIUM 8.5 mg/dl (8.5-10.1); CARBON DIOXIDE 22 mmol/L (21-32); CREATININE 0.51 mg/dl (0.60-1.20); GLUCOSE 93 mg/dl (70-99); POTASSIUM 3.6 mmol/L (3.5-5.1); SODIUM 138 mmol/L (136-145)
[2017-09-27] MEDS: ENOXAPARIN 80 MG/0.8 ML SYR SQ SCH (08:45)
[2017-09-27] MEDS: SUCRALFATE 1 GM TAB PO SCH (08:46)
[2017-09-27] MEDS ORDERED: SUCR1TAB PO (09:14)
[2017-09-27] MEDS ORDERED: RANI300T2 PO (09:14)
--- NOTE | 2017-09-27 09:16 | Discharge Instructions ---
Discharge Instructions Date of Service Sep 27, 2017. Admission Reason for Admission: 13 Wks Gestation Of , Dvt, Hematemesis Discharge Discharge Diagnosis / Problem: Hematemesis, DVT Discharge Goals Goal(s): Decrease discomfort, Improve function Activity Recommendations Activity Limitations: resume your previous activity . Instructions / Follow-Up Instructions / Follow-Up FOLLOWUP WITH FAMILY DOCTOR Ronel Holden ON Sep AT 11:05AM FOLLOWUP WITH ELECTRONIC IMAGING SYSTEM OPERATOR SCHEDULED. Current Hospital Diet Patient's current hospital diet: Regular Diet Discharge Diet Recommended Diet: Regular Diet Pending Studies Studies pending at discharge: no Medical Emergencies . Who to Call and When: Medical Emergencies: If at any time you feel your situation is an emergency, please call 911 immediately. . Non-Emergent Contact Non-Emergency issues call your: Primary Care Provider . . "Provider Documentation" section prepared by Danie Owens. . VTE Core Measure Inpt VTE Proph given/why not?: Enoxaparin (Lovenox)SQ
[2017-09-27 10:01] VITALS: BP 108/70; PULSE 73; TEMP 36.9; O2SAT 98
--- NOTE | 2017-09-27 17:30 | Progress Note ---
Internal Med Progress Note Date of Service: Sep 27, 2017. Provider Documentation: SUBJECTIVE: resting comfortably afebrile no nausea no sob afebrile no more hematemesis tolerating diet ok for discharge OBJECTIVE: Vital Signs-as noted below Exam: General-Alert and awake. Not in distress ENT-Normal hearing Neck-no neck masses supple Lungs-cta b/l no wheezing no crackles Heart-S1 and S2 heard regular rate and rthym, no murmurs Abdomen-Soft bowel sounds present non tender no distension Extremities-no edema no erythema Neuro-alert and awake moves extremities Lab data as noted below. ASSESSMENT & PLAN: 1. Hematemesis, 3 separate occasions, but due to the last occasion, resolved on ppi drip plan for Carafate and Zantac appreciate Gi inputs started on diet restarted Lovenox stable d/c on Zantac daily and stopping as per pcp Carafate for one week f/u with pcp 2. Thirteen weeks . US fine. 3. Deep venous thrombosis, both legs and she has been on Lovenox which should be continued throughout 80 mg a day, which is restarted as her hematemesis stopped and hb stable. 4. Hypothyroidism. on Synthroid discharged home Vital Signs: Date Time Temp Pulse Resp B/P (MAP) Pulse Ox O2 Delivery O2 Flow Rate FiO2 09/27/17 10:01 36.9 73 20 98 Room Air 09/27/17 08:00 Room Air 09/27/17 07:10 36.9 73 20 108/70 (83) 98 Room Air 09/27/17 04:00 Room Air 09/27/17 03:12 36.9 74 17 136/73 (94) 99 Room Air 09/26/17 23:59 Room Air 09/26/17 23:08 36.7 74 17 115/68 (84) 98 09/26/17 20:00 Room Air 09/26/17 19:05 36.7 73 18 114/70 (85) 99 Room Air Lab Results: Results Past 24 Hours Test 09/27/17 06:37 Range/Units White Blood Count 6.48 4.8-10.8 K/uL Red Blood Count 3.86 4.2-5.4 M/uL Hemoglobin 11.3 12.0-16.0 g/dL Hematocrit 33.6 37-47 % Mean Corpuscular Volume 87.0 80-100 fL Mean Corpuscular Hemoglobin 29.3 25-34 pg Mean Corpuscular Hemoglobin Concent 33.6 32-36 g/dl Platelet Count 253 130-400 K/uL Mean Platelet Volume 9.6 7.4-10.4 fL Neutrophils (%) (Auto) 63.5 % Lymphocytes (%) (Auto) 28.2 % Monocytes (%) (Auto) 6.8 % Eosinophils (%) (Auto) 1.1 % Basophils (%) (Auto) 0.2 % Neutrophils # (Auto) 4.12 1.4-6.5 K/uL Lymphocytes # (Auto) 1.83 1.2-3.4 K/uL Monocytes # (Auto) 0.44 0.11-0.59 K/uL Eosinophils # (Auto) 0.07 0-0.5 K/uL Basophils # (Auto) 0.01 0-0.2 K/uL RDW Standard Deviation 44.1 36.4-46.3 fL RDW Coefficient of Variation 13.9 11.5-14.5 % Immature Granulocyte % (Auto) 0.2 % Immature Granulocyte # (Auto) 0.01 0.00-0.02 K/uL Sodium Level 138 136-145 mmol/L Potassium Level 3.6 3.5-5.1 mmol/L Chloride Level 109 98-107 mmol/L Carbon Dioxide Level 22 21-32 mmol/L Anion Gap 8.0 3-11 mmol/L Blood Urea Nitrogen 6 7-18 mg/dl Creatinine 0.51 0.60-1.20 mg/dl Est Creatinine Clear Calc Drug Dose 257.4 ml/min Estimated GFR () > 150.0 Estimated GFR (Non- 132.7 BUN/Creatinine Ratio 12.2 10-20 Random Glucose 93 70-99 mg/dl Calcium Level 8.5 8.5-10.1 mg/dl Magnesium Level 2.1 1.8-2.4 mg/dl
== END 2017-09-27 10:14 | disposition home or self-care (01) ==
LOC: C.EDB 14:12 → C.2T 17:58 → EDBEDREQ 18:09 → ENRESERV 18:35
PROVIDERS: ADMIT Internal Medicine; ATTEND Internal Medicine
DX: O99.611 Diseases of the digestive system complicating pregnancy, first trimester (principal); K92.0 Hematemesis; O99.511 Diseases of the respiratory system complicating pregnancy, first trimester; J45.909 Unspecified asthma, uncomplicated; K21.9 Gastro-esophageal reflux disease without esophagitis; O99.281 Endocrine, nutritional and metabolic diseases complicating pregnancy, first trimester; E03.9 Hypothyroidism, unspecified; O99.111 Other diseases of the blood and blood-forming organs and certain disorders involving the immune mechanism complicating pregnancy, first trimester; E66.9 Obesity, unspecified; O99.351 Diseases of the nervous system complicating pregnancy, first trimester; R55 Syncope and collapse; Z86.718 Personal history of other venous thrombosis and embolism; Z3A.13 13 weeks gestation of pregnancy

== ENCOUNTER 2017-10-08 07:46 | Emergency (ER) | payer OTHER ==
[~2017-10-08] VITALS: Ht 175.3 cm; Wt 145.5 kg
[~2017-10-08 07:46] MED LIST changes: -LRT5 PO; +SUCR1TAB PO
[2017-10-08 07:49] VITALS: TEMP 36.4; Ht 175.3 cm; Wt 145.5 kg
[2017-10-08 08:30] LABS: BASO % 0.1 %; BASO ABS # 0.01 K/uL (0-0.2); EOS % 0.8 %; EOS ABS # 0.06 K/uL (0-0.5); HEMATOCRIT 35.8 % (37-47); HEMOGLOBIN 12.6 g/dL (12.0-16.0); IG# 0.01 K/uL (0.00-0.02); LYMPH % 19.8 %; LYMPH ABS # 1.41 K/uL (1.2-3.4); MEAN CELL VOLUME 86.9 fL (80-100); MEAN CORPUSCULAR HEMOGLOBIN 30.6 pg (25-34); MEAN CORPUSCULAR HGB CONC 35.2 g/dl (32-36); MEAN PLATELET VOLUME 9.7 fL (7.4-10.4); MONO % 6.2 %; MONO ABS # 0.44 K/uL (0.11-0.59); PLATELET COUNT 248 K/uL (130-400); RED CELL DISTRIBUTION WIDTH CV 14.3 % (11.5-14.5); RED CELL DISTRIBUTION WIDTH SD 44.7 fL (36.4-46.3); WHITE BLOOD COUNT 7.13 K/uL (4.8-10.8)
[2017-10-08 08:49] LABS: ALBUMIN 3.1 gm/dl (3.4-5.0); ALT/SGPT 19 U/L (12-78); BLOOD UREA NITROGEN 9 mg/dl (7-18); CALCIUM 8.9 mg/dl (8.5-10.1); CARBON DIOXIDE 23 mmol/L (21-32); CREATININE 0.53 mg/dl (0.60-1.20); GLUCOSE 90 mg/dl (70-99); POTASSIUM 3.5 mmol/L (3.5-5.1); SODIUM 137 mmol/L (136-145)
[2017-10-08 08:52] LABS: ALKALINE PHOSPHATASE 66 U/L (45-117); AST/SGOT 10 U/L (15-37)
[2017-10-08 08:57] LABS: PTT PATIENT 25.2 SECONDS (21.0-31.0)
--- NOTE | 2017-10-08 09:09 | DIAGNOSTIC IMAGING REPORT ---
LIMITED (US) CLINICAL HISTORY: 15 wks, pain and bleeding viability TECHNIQUE: Ultrasound COMPARISON STUDY: 09/25/2017 FINDINGS: Single, viable intrauterine . Fetus is variable in position. Placenta is right anterior and location. Maternal cervix is closed and has a maximum dimension of 3.8 cm. heart rate is confirmed at 1 43 bpm. IMPRESSION: Single, viable intrauterine of approximately 15 weeks 3 days gestational age. Normal interval growth from the prior exam. ] heart rate 143 bpm. The above report was generated using voice recognition software. It may contain grammatical, syntax or spelling errors. Electronically signed by: Sudeep Anand M.D. 10/08/2017 9:07 AM Dictated Date/Time: 10/08/2017 9:06 AM
[2017-10-08 09:42] VITALS: BP 132/98; O2SAT 100
[2017-10-08 09:44] VITALS: PULSE 79
[2017-10-08] MEDS ORDERED: CLINDAMYCIN HCL 150 MG CAP PO ONE (10:00)
[2017-10-08] MEDS ORDERED: CLIN150C PO (10:17)
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
== END 2017-10-08 10:00 | disposition home or self-care (01) ==
LOC: C.EDB 07:48 → C.EDA 10:00
DX: O20.9 Hemorrhage in early pregnancy, unspecified (principal); O99.712 Diseases of the skin and subcutaneous tissue complicating pregnancy, second trimester; L03.116 Cellulitis of left lower limb; Z3A.15 15 weeks gestation of pregnancy; O99.512 Diseases of the respiratory system complicating pregnancy, second trimester; J45.909 Unspecified asthma, uncomplicated; Z86.718 Personal history of other venous thrombosis and embolism; O99.612 Diseases of the digestive system complicating pregnancy, second trimester; K21.9 Gastro-esophageal reflux disease without esophagitis; O99.282 Endocrine, nutritional and metabolic diseases complicating pregnancy, second trimester; E03.9 Hypothyroidism, unspecified; O99.352 Diseases of the nervous system complicating pregnancy, second trimester; G43.909 Migraine, unspecified, not intractable, without status migrainosus; O99.212 Obesity complicating pregnancy, second trimester; E66.9 Obesity, unspecified; Z83.3 Family history of diabetes mellitus; Z80.9 Family history of malignant neoplasm, unspecified; Z83.79 Family history of other diseases of the digestive system; Z84.1 Family history of disorders of kidney and ureter; Z82.49 Family history of ischemic heart disease and other diseases of the circulatory system; Z79.01 Long term (current) use of anticoagulants; Z79.899 Other long term (current) drug therapy

== ENCOUNTER 2017-10-08 10:26 | Outpatient (CLI) | payer OTHER ==
[~2017-10-08 10:26] MED LIST changes: +CLIN150C PO
[2017-10-08] MEDS ORDERED: METRONIDAZOLE 500 MG TAB PO SCH (11:15)
== END 2017-10-08 11:45 | disposition home or self-care (01) ==
LOC: C.OPB 10:26 → C.LD 10:26 → C.OPB 11:45
PROVIDERS: ATTEND Obstetrics & Gynecology
DX: O26.852 Spotting complicating pregnancy, second trimester (principal); Z3A.00 Weeks of gestation of pregnancy not specified

== ENCOUNTER 2017-10-19 09:08 | Emergency (ER) | payer OTHER ==
[~2017-10-19] VITALS: Ht 175.3 cm; Wt 146.0 kg
[2017-10-19 09:20] VITALS: TEMP 36.5; Ht 175.3 cm; Wt 146.0 kg
[2017-10-19] MEDS ORDERED: SODIUM CHLORIDE 0.9% 1000ML 2,000 ML IV STA (09:58)
[2017-10-19] MEDS ORDERED: ONDANSETRON INJ 2 MG/ML 2 ML VIAL IV STA (10:01)
[2017-10-19 10:27] LABS: BASO % 0.1 %; BASO ABS # 0.01 K/uL (0-0.2); EOS % 0.9 %; EOS ABS # 0.08 K/uL (0-0.5); HEMATOCRIT 36.4 % (37-47); HEMOGLOBIN 12.7 g/dL (12.0-16.0); IG# 0.02 K/uL (0.00-0.02); LYMPH % 13.4 %; LYMPH ABS # 1.14 K/uL (1.2-3.4); MEAN CELL VOLUME 87.1 fL (80-100); MEAN CORPUSCULAR HEMOGLOBIN 30.4 pg (25-34); MEAN CORPUSCULAR HGB CONC 34.9 g/dl (32-36); MEAN PLATELET VOLUME 9.6 fL (7.4-10.4); MONO % 6.4 %; MONO ABS # 0.54 K/uL (0.11-0.59); NEUT ABS # 6.69 K/uL (1.4-6.5); PLATELET COUNT 274 K/uL (130-400); RED CELL DISTRIBUTION WIDTH CV 14.5 % (11.5-14.5); RED CELL DISTRIBUTION WIDTH SD 45.7 fL (36.4-46.3); WHITE BLOOD COUNT 8.48 K/uL (4.8-10.8)
[2017-10-19 10:44] LABS: ALBUMIN 3.1 gm/dl (3.4-5.0); ALT/SGPT 19 U/L (12-78); BLOOD UREA NITROGEN 6 mg/dl (7-18); CALCIUM 9.3 mg/dl (8.5-10.1); CARBON DIOXIDE 20 mmol/L (21-32); GLUCOSE 80 mg/dl (70-99); LIPASE 54 U/L (73-393); POTASSIUM 3.5 mmol/L (3.5-5.1); SODIUM 136 mmol/L (136-145)
[2017-10-19 10:47] LABS: ALKALINE PHOSPHATASE 67 U/L (45-117); AST/SGOT 9 U/L (15-37); TOTAL PROTEIN 7.2 gm/dl (6.4-8.2)
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
--- NOTE | 2017-10-19 11:50 | DIAGNOSTIC IMAGING REPORT ---
LIMITED (US) CLINICAL HISTORY: 17 WKS PREG, ABD CRAMPING COMPARISON STUDY: ultrasound 10/08/2017. FINDINGS: Transabdominal scanning of the fetus are performed. The cervix measures approximate 4 cm in length and appears closed. There is an anterior placenta. No subchorionic hematoma. The placenta appears to abut the edge of the cervix but does not cross the cervix. The fetus is in a breech presentation. The fetus demonstrates a heart rate of 142 bpm. Normal amniotic fluid volume. age based on the femur length was 17 weeks and 0 days. The femur length was measured to be 2.31 cm. IMPRESSION: 1. Single viable 17 week and 0 day intrauterine gestation demonstrating a heart rate of 142 bpm. 2. Anterior placenta. No evidence for subchorionic hematoma. Low lying/marginal placenta previa likely due to the early gestational age. This can be followed to ensure resolution. Electronically signed by: Cruz Fontana M.D. 10/19/2017 11:48 AM Dictated Date/Time: 10/19/2017 11:44 AM
[2017-10-19] MEDS ORDERED: NITROFURANTOIN MONOHYDRATE 100 MG CAP PO STA (12:56)
[2017-10-19] MEDS ORDERED: NITR-5 PO (13:06)
[2017-10-19 13:27] VITALS: BP 122/64; PULSE 76; O2SAT 100
== END 2017-10-19 13:28 | disposition home or self-care (01) ==
LOC: C.EDB 09:12 → C.EDC 13:28
DX: O26.852 Spotting complicating pregnancy, second trimester (principal); S39.012A Strain of muscle, fascia and tendon of lower back, initial encounter; X50.0XXA Overexertion from strenuous movement or load, initial encounter; Z3A.17 17 weeks gestation of pregnancy; J45.909 Unspecified asthma, uncomplicated; R11.0 Nausea; E03.9 Hypothyroidism, unspecified; Z79.01 Long term (current) use of anticoagulants; Z86.718 Personal history of other venous thrombosis and embolism; Z83.3 Family history of diabetes mellitus; Z83.79 Family history of other diseases of the digestive system; Z82.49 Family history of ischemic heart disease and other diseases of the circulatory system; Z84.1 Family history of disorders of kidney and ureter; Z82.0 Family history of epilepsy and other diseases of the nervous system

== ENCOUNTER 2017-10-30 18:33 | Emergency (ER) | payer OTHER ==
[~2017-10-30] VITALS: Ht 175.3 cm; Wt 143.3 kg
[~2017-10-30 18:33] MED LIST changes: -CLIN150C PO; -ENOX80IN SQ; +NITR-5 PO; -SYN75 PO
[2017-10-30 18:47] VITALS: TEMP 36.8; Ht 175.3 cm; Wt 143.3 kg
[2017-10-30] MEDS ORDERED: METOCLOPRAMIDE HCL INJ 5 MG/ML 2 ML VIAL IV STA (19:05)
[2017-10-30] MEDS ORDERED: SODIUM CHLORIDE 0.9% 1000ML 1,000 ML IV STA (19:05)
[2017-10-30] MEDS ORDERED: ONDA8TAB62 SL (19:23)
[2017-10-30] MEDS ORDERED: SUCR1TAB PO (19:23)
[2017-10-30] MEDS ORDERED: RANI300T2 PO (19:23)
[2017-10-30 19:37] LABS: BASO % 0.2 %; BASO ABS # 0.02 K/uL (0-0.2); EOS ABS # 0.09 K/uL (0-0.5); HEMOGLOBIN 12.4 g/dL (12.0-16.0); IG# 0.04 K/uL (0.00-0.02); LYMPH % 22.3 %; MEAN CELL VOLUME 87.2 fL (80-100); MEAN CORPUSCULAR HGB CONC 34.4 g/dl (32-36); MEAN PLATELET VOLUME 9.6 fL (7.4-10.4); MONO % 6.8 %; MONO ABS # 0.61 K/uL (0.11-0.59); NEUT % 69.3 %; NEUT ABS # 6.22 K/uL (1.4-6.5); PLATELET COUNT 254 K/uL (130-400); RED CELL DISTRIBUTION WIDTH CV 14.4 % (11.5-14.5); RED CELL DISTRIBUTION WIDTH SD 45.6 fL (36.4-46.3); WHITE BLOOD COUNT 8.98 K/uL (4.8-10.8)
[2017-10-30 20:01] LABS: ALT/SGPT 28 U/L (12-78); AST/SGOT 13 U/L (15-37); BLOOD UREA NITROGEN 8 mg/dl (7-18); CALCIUM 8.6 mg/dl (8.5-10.1); CARBON DIOXIDE 25 mmol/L (21-32); CREATININE 0.56 mg/dl (0.60-1.20); GLUCOSE 84 mg/dl (70-99); POTASSIUM 3.1 mmol/L (3.5-5.1); SODIUM 137 mmol/L (136-145)
[2017-10-30 20:04] LABS: ALKALINE PHOSPHATASE 73 U/L (45-117)
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
[2017-10-30 20:51] VITALS: BP 138/97; PULSE 85; O2SAT 98
[2017-10-30] MEDS ORDERED: ENOX80IN SQ (21:03)
[2017-10-30] MEDS ORDERED: SYN75 PO (21:03)
== END 2017-10-30 20:50 | disposition home or self-care (01) ==
LOC: C.EDB 18:40 → C.EDA 20:50
DX: G43.909 Migraine, unspecified, not intractable, without status migrainosus (principal); O99.352 Diseases of the nervous system complicating pregnancy, second trimester; E86.0 Dehydration; Z3A.18 18 weeks gestation of pregnancy; J45.909 Unspecified asthma, uncomplicated; Z86.718 Personal history of other venous thrombosis and embolism; K21.9 Gastro-esophageal reflux disease without esophagitis; E03.9 Hypothyroidism, unspecified; Z83.3 Family history of diabetes mellitus; Z80.9 Family history of malignant neoplasm, unspecified; Z83.79 Family history of other diseases of the digestive system; Z82.49 Family history of ischemic heart disease and other diseases of the circulatory system; Z83.6 Family history of other diseases of the respiratory system; Z84.1 Family history of disorders of kidney and ureter; Z79.01 Long term (current) use of anticoagulants; Z79.899 Other long term (current) drug therapy

== ENCOUNTER 2017-12-20 20:00 | Emergency (ER) | payer OTHER ==
[~2017-12-20] VITALS: Ht 175.3 cm; Wt 144.5 kg
[~2017-12-20 20:00] MED LIST changes: -NITR-5 PO; -ONDA4TAB10 SL; +ONDA8TAB62 SL
[2017-12-20 20:12] VITALS: TEMP 36.9; Ht 175.3 cm; Wt 144.5 kg
[2017-12-20] MEDS ORDERED: DiphenhydrAMINE HCL 50 MG/ML VIAL IV STA (20:24)
[2017-12-20] MEDS ORDERED: DEXAMETHASONE **PF** INJ 10 MG/ML VIAL IV ONE (20:30)
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
[2017-12-20 20:47] VITALS: O2SAT 100
[2017-12-20 21:01] LABS: BASO % 0.2 %; BASO ABS # 0.02 K/uL (0-0.2); EOS % 1.3 %; EOS ABS # 0.13 K/uL (0-0.5); HEMATOCRIT 33.8 % (37-47); HEMOGLOBIN 11.5 g/dL (12.0-16.0); IG# 0.06 K/uL (0.00-0.02); LYMPH % 20.6 %; LYMPH ABS # 2.13 K/uL (1.2-3.4); MEAN CELL VOLUME 90.4 fL (80-100); MEAN CORPUSCULAR HEMOGLOBIN 30.7 pg (25-34); MEAN PLATELET VOLUME 10.4 fL (7.4-10.4); MONO % 6.3 %; MONO ABS # 0.65 K/uL (0.11-0.59); NEUT ABS # 7.34 K/uL (1.4-6.5); PLATELET COUNT 272 K/uL (130-400); RED CELL DISTRIBUTION WIDTH CV 14.9 % (11.5-14.5); RED CELL DISTRIBUTION WIDTH SD 48.6 fL (36.4-46.3); WHITE BLOOD COUNT 10.33 K/uL (4.8-10.8)
[2017-12-20] MEDS ORDERED: SYN75 PO (21:03)
[2017-12-20] MEDS ORDERED: ENOX80IN SQ (21:03)
[2017-12-20 21:12] LABS: ALBUMIN 2.8 gm/dl (3.4-5.0); ALT/SGPT 18 U/L (12-78); BLOOD UREA NITROGEN 10 mg/dl (7-18); CALCIUM 8.6 mg/dl (8.5-10.1); CARBON DIOXIDE 24 mmol/L (21-32); CREATININE 0.67 mg/dl (0.60-1.20); GLUCOSE 85 mg/dl (70-99); POTASSIUM 3.4 mmol/L (3.5-5.1); SODIUM 139 mmol/L (136-145)
[2017-12-20 21:15] LABS: ALKALINE PHOSPHATASE 85 U/L (45-117); AST/SGOT 11 U/L (15-37); TOTAL PROTEIN 6.7 gm/dl (6.4-8.2)
[2017-12-20 21:53] VITALS: BP 136/74; PULSE 85; O2SAT 100
== END 2017-12-20 21:54 | disposition home or self-care (01) ==
LOC: C.EDB 20:03 → C.EDC 21:54
DX: O99.712 Diseases of the skin and subcutaneous tissue complicating pregnancy, second trimester (principal); O9A.212 Injury, poisoning and certain other consequences of external causes complicating pregnancy, second trimester; O12.02 Gestational edema, second trimester; O99.280 Endocrine, nutritional and metabolic diseases complicating pregnancy, unspecified trimester; O99.512 Diseases of the respiratory system complicating pregnancy, second trimester; O99.612 Diseases of the digestive system complicating pregnancy, second trimester; O99.212 Obesity complicating pregnancy, second trimester; Z3A.26 26 weeks gestation of pregnancy; T78.40XA Allergy, unspecified, initial encounter; L50.9 Urticaria, unspecified; R10.2 Pelvic and perineal pain; E03.9 Hypothyroidism, unspecified; J45.909 Unspecified asthma, uncomplicated; K21.9 Gastro-esophageal reflux disease without esophagitis; E66.9 Obesity, unspecified; Z79.01 Long term (current) use of anticoagulants; Z86.718 Personal history of other venous thrombosis and embolism; Z87.59 Personal history of other complications of pregnancy, childbirth and the puerperium

== ENCOUNTER 2017-12-20 21:59 | Outpatient (CLI) | payer OTHER ==
[~2017-12-20] VITALS: Ht 175.3 cm; Wt 141.0 kg
[~2017-12-20 21:59] MED LIST changes: +ENOX80IN SQ; +SYN75 PO
[2017-12-20 22:57] VITALS: Ht 175.3 cm; Wt 141.0 kg
== END 2017-12-21 00:14 ==
LOC: C.LD 21:59 → C.OPB 21:59
PROVIDERS: ATTEND Obstetrics & Gynecology
DX: O26.852 Spotting complicating pregnancy, second trimester (principal); O99.213 Obesity complicating pregnancy, third trimester; E66.01 Morbid (severe) obesity due to excess calories; O99.282 Endocrine, nutritional and metabolic diseases complicating pregnancy, second trimester; E03.9 Hypothyroidism, unspecified; Z3A.25 25 weeks gestation of pregnancy; Z86.718 Personal history of other venous thrombosis and embolism; Z79.01 Long term (current) use of anticoagulants

== ENCOUNTER 2018-01-10 18:35 | Outpatient (CLI) | payer OTHER ==
[~2018-01-10] VITALS: Ht 175.3 cm; Wt 144.0 kg
[~2018-01-10 18:35] MED LIST changes: -CYCL5TAB PO; -DICY10CA55 PO; -ONDA8TAB62 SL
[2018-01-10] MEDS ORDERED: LACTATED RINGER'S 1000ML 500 ML IV ONE (18:53)
[2018-01-10] MEDS ORDERED: LACTATED RINGER'S 1000ML 1,000 ML IV SCH (18:53)
[2018-01-10 19:42] VITALS: Ht 175.3 cm; Wt 144.0 kg
[2018-01-10] MEDS ORDERED: BETAMETH SOD PHOS/ACETATE IA 6 MG/ML IM SCH (20:00)
[2018-01-10] MEDS ORDERED: TERBUTALINE SULFATE 1 MG/ML VIAL SQ ONE (20:00)
--- NOTE | 2018-01-10 20:56 | Discharge Instructions ---
Discharge Instructions Date of Service Jan 10, 2018. Admission Reason for Admission: Check Pre Term Labor Discharge Discharge Diagnosis / Problem: contractions, no cervical change Discharge Goals Goal(s): Continuing OB care Medications Continue Dispensed Medications: other Activity Recommendations Activity Limitations: as noted below ACTIVITY RECOMMENDATIONS: See Labor Sheet. SPECIAL CARE INSTRUCTIONS: Call Doctor if: * Regular contractions every 5 minutes or greater than 5 contractions in one hour. * Bleeding * Water breaks or is leaking * Decreased movement * Fever >100.4 degrees F * Pain not relieved by routine measures or pain medication ordered. FOLLOW UP VISIT: Return to Labor and Delivery on 01/11/18 at 2000 . Follow-up Visit with: When: . Current Hospital Diet Patient's current hospital diet: Clear Liquid Diet Discharge Diet Recommended Diet: Regular Diet Pending Studies Studies pending at discharge: no Medical Emergencies . Who to Call and When: Medical Emergencies: If at any time you feel your situation is an emergency, please call 911 immediately. . Non-Emergent Contact Non-Emergency issues call your: Specialist Call Non-Emergent contact if: you have a fever, temperature is above 100.5, your pain is not controlled, your pain is worsening, your pain is unusual for you . . "Provider Documentation" section prepared by Marilee Mcnulty. .
== END 2018-01-10 21:40 | disposition home or self-care (01) ==
LOC: C.LD 18:35 → C.OPB 18:35
PROVIDERS: ATTEND Obstetrics & Gynecology
DX: O62.9 Abnormality of forces of labor, unspecified (principal); O99.89 Other specified diseases and conditions complicating pregnancy, childbirth and the puerperium; R03.0 Elevated blood-pressure reading, without diagnosis of hypertension; M54.9 Dorsalgia, unspecified; Z3A.28 28 weeks gestation of pregnancy

== ENCOUNTER 2018-01-11 19:40 | Outpatient (CLI) | payer OTHER ==
[2018-01-11] MEDS ORDERED: BETAMETH SOD PHOS/ACETATE IA 6 MG/ML ONE (19:55)
[2018-01-11] MEDS ORDERED: NURSING VERBAL MED ORDER ONE (20:00)
[2018-01-11] MEDS ORDERED: BETAMETH SOD PHOS/ACETATE IA 6 MG/ML IM SCH (20:00)
== END 2018-01-11 20:38 | disposition home or self-care (01) ==
LOC: C.LD 19:40 → C.OPB 19:40
PROVIDERS: ATTEND Obstetrics & Gynecology
DX: O36.8190 Decreased fetal movements, unspecified trimester, not applicable or unspecified (principal); Z3A.00 Weeks of gestation of pregnancy not specified

== ENCOUNTER 2018-01-29 19:48 | Outpatient (CLI) | payer OTHER ==
[~2018-01-29 19:48] MED LIST changes: -SUCR1TAB PO
--- NOTE | 2018-02-01 07:58 | EDITING REQUIRED CODING QUERY ---
DIAGNOSIS NEEDED To promote full compliance with coding requirements relating to patient care, physician participation is requested in all cases of aerospace engineer officer armament uncertainty. Please assist us with the question(s) below: Coding Question: The patient received care in labor and delivery on 01/30/18 as noted within the record. Please document the diagnosis that is being addressed by the medication/treatment. Provider Response: DIAGNOSIS: labor WEEKS OF GESTATION: 31 weeks Thank you for your assistance, Brisa Sexton - Temporary Staff Accountant
== END 2018-01-29 21:50 | disposition home or self-care (01) ==
LOC: C.OPB 19:48 → C.LD 19:51 → C.OPB 21:50
PROVIDERS: ATTEND Obstetrics & Gynecology
DX: O60.03 Preterm labor without delivery, third trimester (principal); Z3A.31 31 weeks gestation of pregnancy

== ENCOUNTER 2019-03-27 11:20 | Inpatient (IN) ==
[2019-03-27] MEDS ORDERED: OXYTOCIN 30 UNITS/500 ML BAG IV PRN ×2 (14:02)
[2019-03-27] MEDS: LACTATED RINGER'S 1,000 ML IV PRN ×2 (14:08→22:24)
--- NOTE | 2019-03-27 14:18 | Labor Progress Brief Note ---
Date of Service March 27, 2019 Met pt and family H&P done FHR; CAT1 Ctx2-4mins VE /-1 EFW by patience' 8lbs Pt is allergic to Amp. Ancef and Monique discussed with Peds- will give clindamycin Pt has tried clinda. n the past w/o complication, Results & Data Vital Signs (Past 12 Hours) Vital Signs Temp Pulse Resp BP 03/27/19 13:41 36.5 C 69 20 140/77
[2019-03-27 14:20] LABS: Hematocrit (blood only) 35.1 % (37-47); Hemoglobin 12.2 g/dL (12.0-16.0); Mean Corpuscular Volume 89.1 fL (80-100); Mean Platelet Volume 10.2 fL (7.4-10.4); Platelet Count 215 K/uL (130-400); RDW Coefficient of Variation 14.3 % (11.5-14.5); RDW Standard Deviation 46.7 fL (36.4-46.3); Red Blood Count 3.94 M/uL (4.2-5.4); White Blood Count 8.14 K/uL (4.8-10.8)
[2019-03-27 14:21] LABS: Mean Corpuscular Hgb Conc 34.8 g/dL (32-36)
[2019-03-27] MEDS: CLINDAMYCIN 900 MG in DEXTROSE 5% 50 ML IV SCH ×2 (14:58→22:25)
--- NOTE | 2019-03-27 15:20 | History and Physical Report ---
DATE OF ADMISSION: 03/27/2019 HISTORY OF PRESENT ILLNESS: The patient is a 28-year-old G4, P2, due date 04/03/2019, making her at 39 weeks today who presented to labor and delivery for induction of labor because of obesity, hypothyroidism and a history of DVT. On arrival to labor and delivery, she has no shortness of breath, no chills, no fever, no rupture of membranes, no bloody show. The patient's history has been complicated by: 1. Obesity, BMI of 50.3. 2. Hypothyroidism. 3. History of DVT x4. 4. Positive GBS, this . PAST MEDICAL HISTORY: 1. History of hypothyroidism. 2. History of DVT. 3. Asthma. 4. Temporomandibular joint disorder. PAST SURGICAL HISTORY: History of laparoscopy for cholecystectomy, history of arthroscopy, colonoscopy, history of vein ablation as well as EGDs. ALLERGIES: THE PATIENT IS ALLERGIC TO HEPARIN, AMOXICILLIN, CEFTRIAXONE, CEPHALEXIN, OXYCODONE, PENICILLIN AND VANCOMYCIN. SOCIAL HISTORY: The patient denies tobacco, drug or alcohol use. FAMILY HISTORY: Noncontributory. PHYSICAL EXAMINATION: GENERAL: Morbid obesity, BMI is 50.3. HEART: S1, S2, regular rhythm and rate. LUNGS: Clear to auscultation bilaterally. ABDOMEN: Gravid. PELVIC: The patient is 3 cm, 50% effaced, and -1. ASSESSMENT AND PLAN: A 28-year-old G4, P2 at 38 weeks and 6. The patient's is complicated by obesity, hypothyroidism and a history of DVT. She has been on Lovenox and last Lovenox was about 24 hours ago. Plan is to admit the patient, start induction, anticipate vaginal delivery. The patient will be restarted on Lovenox post-delivery.
[2019-03-27] MEDS ORDERED: BUTORPHANOL TARTRATE 2 MG/ML VIAL IV PRN ×2 (18:16→18:19)
[2019-03-27] MEDS ORDERED: BUTORPHANOL TARTRATE 2 MG/ML VIAL ONE (18:18)
[2019-03-27] MEDS ORDERED: ONDANSETRON INJ 2 MG/ML 2 ML VIAL IV PRN ×2 (19:57→21:59)
[2019-03-27] MEDS ORDERED: ePHEDrine sulfate 50 MG/ML AMP ONE (20:36)
[2019-03-27] MEDS ORDERED: BUPIVACAINE 0.25% 30 ML VIAL ONE (20:36)
[2019-03-27] MEDS ORDERED: fentaNYL citrate 100 MCG/2 ML VIAL ONE (20:37)
[2019-03-27] MEDS ORDERED: fentaNYL 2MCG/ML ROPIV 1.25MG/ML 100 ML BAG EPI ONE (20:37)
--- NOTE | 2019-03-27 20:48 | Anesthesiology Consultation ---
Date of Service March 27, 2019 Assessment & Plan (1) Encounter for pre-operative examination: Chart Review Chart Review: Patient NOT seen in Pre Admission Testing and Acceptable Risk for Labor Epidural Consults Requested none ASA ASA3 Proposed Anesthesia Anesthesia Type: Labor Epidural Risk / Benefits Reviewed With: PT / POA / Parent / Guardian, Accepts Plan and Informed Consent Obtained History Surgery Labor epidural Height/Weight Height: 5 ft 9 in Weight: 154.221 kg Allergies Allergy/AdvReac Type Severity Reaction Status Date / Time heparin Allergy Severe CELLULITIS Verified 03/27/19 13:52 AT INJECTION SITES amoxicillin Allergy Intermediate HIVES,RASH Verified 03/27/19 13:52 HIGH BP,FAST HEART RATE,DIARRHEA,SOB blueberry Allergy Intermediate HIVES Verified 03/27/19 13:52 ceftriaxone Allergy Intermediate itching,HIV Verified 03/27/19 13:52 ES cephalexin Allergy Intermediate ittchy Verified 03/27/19 13:52 oxycodone Allergy Intermediate hives n/v Verified 03/27/19 13:52 Penicillins Allergy Intermediate AMOXICILLIN Verified 03/27/19 13:52 SOB, TACHYCARDIA & HIVES vancomycin Allergy Intermediate ITCHING,SOB Verified 03/27/19 13:52 codeine Allergy Mild RASH Verified 03/27/19 13:52 human papillomavirus Allergy Mild RASH RAPID Verified 03/27/19 13:52 vaccine, quadr HEART BEAT morphine Allergy Mild ABDOMINAL Verified 03/27/19 13:52 PAIN,DIARRHEA,HIVES NAUSEA AND VOMITING tree and shrub pollen Allergy Hives Verified 03/27/19 13:52 acetaminophen AdvReac Severe ELEVATED Verified 03/27/19 13:52 LFTS WITH MINIMAL DOSES tramadol AdvReac Mild nausea, Verified 03/27/19 13:52 vomiting Dust Allergy Mild WHEEZING,SO Uncoded 02/16/19 18:05 B Unclassified Drugs AdvReac Intermediate Vicryl Uncoded 02/16/19 18:05 Sutures - infection outcome x 2 Medications Home Medications Medication Instructions Recorded Confirmed Last Taken enoxaparin [Lovenox] 80 mg SUBCUT DAILY 03/27/19 03/27/19 03/25/19 omeprazole magnesium [Prilosec OTC] 20 mg PO BID 03/27/19 03/27/19 03/27/19 08:00 pediatric multivitamin no.76 2 tab PO DAILY 03/27/19 03/27/19 03/26/19 08:00 [Flintstones Complete] ranitidine HCl [Zantac] 300 mg PO BID 03/27/19 03/27/19 03/27/19 08:00 Active Medications Generic Name Dose Route Start Last Admin Trade Name Freq PRN Reason Stop Dose Admin Lactated Ringer's 1,000 mls @ 125 mls/hr 03/27/19 14:02 03/27/19 19:08 Lr IV 03/29/19 14:01 125 mls/hr .Q8H PRN Infusion L&D Protocol Protocol Oxytocin 30 units in 500 mls @ 12 mls/hr 03/27/19 14:02 03/27/19 19:08 Pitocin IV 03/29/19 14:01 0.72 units/hr .Q24H PRN 12 mls/hr Labor Induction/Augmentation Titration Protocol 0.72 UNITS/HR Clindamycin Phosphate 900 mg/ 56 mls @ 112 mls/hr 03/27/19 14:30 03/27/19 15:34 Dextrose IV 04/06/19 14:29 Infused Q8H LETICIA Infusion Ondansetron HCl 4 mg 03/27/19 19:57 03/27/19 20:04 Zofran IV 04/26/19 19:56 4 mg Q4H PRN Administration Nausea NPO Date Last Intake of Fluids: 03/27/19 Time Last Intake of Fluids: 20:48 Date Last Intake of Solids: 03/27/19 Past Medical History Medical History H/O deep venous thrombosis (Chronic) Migraine (Chronic) GERD (gastroesophageal reflux disease) (Chronic) IBS (irritable bowel syndrome) (Chronic) Hematemesis (Acute) Epigastric abdominal pain (Acute) DVT (deep venous thrombosis) Hypothyroid IBS (irritable bowel syndrome) Colonoscopy TMJ (temporomandibular joint disorder) Exercise / Class Metabolic Activity III < 4 Walking/Shop/Light housework Past Surgical History Surgical History H/O knee surgery 7 surgeries. Patient reports bilateral knees. H/O vein stripping Hx laparoscopic cholecystectomy Past Anesthesia History No Hx of Anesthesia Complications History of PONV History of PONV and Hx of Motion Sickness Social History Smoking Status: Never smoker Hx Alcohol Use: No Hx Substance Use: No substance use type: does not use Review of Systems Patient denies history of abnormal bleeding or bleeding disorder. Patient denies active use of anticoagulants other than low dose aspirin. Does have a history of DVTs. Last dose of lovenox was 2 days ago on March 25. Patient denies active symptoms of GERD. Patient denies numbness, tingling or weakness in lower extremities. Physical Exam Vital Signs Last Vital Signs Temp 36.6 C 03/27/19 19:10 Pulse 81 03/27/19 21:34 Resp 20 03/27/19 18:26 BP 126/57 L 03/27/19 21:34 Pulse Ox 98 03/27/19 21:34 Constitutional + obese (Gravid uterus) ENMT Mouth: no TMJ abnormality and oral opening not small Thyromental Distance: < 3.5 Finger Breadths Mallampati Class: I Neck normal visual inspection; neck extension not limited Respiratory normal respiratory effort Auscultation: lungs clear to auscultation bilaterally Cardiovascular Rate/Rhythm: regular rate and regular rhythm Heart Sounds: no murmur Neurologic moves all extremities Motor/Sensory: no sensory deficit Psychiatric Orientation: alert and oriented x 3 Testing Laboratory Results 03/27/19 14:09
[2019-03-27] MEDS ORDERED: NALOXONE HCL 1 MG in SODIUM CHLORIDE 0.9% 1000ML 1,000 ML IV PRN (21:59)
[2019-03-27] MEDS ORDERED: fentaNYL 2MCG/ML ROPIV 1.25MG/ML 100 ML BAG EPI PRN (21:59)
[2019-03-27] MEDS ORDERED: DiphenhydrAMINE HCL 50 MG/ML VIAL IV PRN (21:59)
[2019-03-27] MEDS ORDERED: ePHEDrine sulfate 50 MG/ML AMP IV PRN (21:59)
[2019-03-27] MEDS ORDERED: NALBUPHINE HCL INJ 10 MG/ML AMP IV PRN (21:59)
[2019-03-27] MEDS ORDERED: NALOXONE HCL 0.4 MG/1 ML VIAL/CARP IV PRN (21:59)
--- NOTE | 2019-03-27 23:25 | Labor Progress Brief Note ---
Date of Service March 27, 2019 doing well epidural analgesia in place FHR; CAT1 Ctx; 2-3mins VE; 3/50/-1 Unchanged Pit; 14MU AROM; - Clear Results & Data Vital Signs (Past 12 Hours) Vital Signs Temp Pulse Resp BP Pulse Ox 03/27/19 23:20 62 122/61 03/27/19 23:19 66 97 03/27/19 23:14 71 97 03/27/19 23:09 63 96 03/27/19 23:07 65 94 03/27/19 23:05 69 123/59 L 03/27/19 23:04 69 96 03/27/19 22:59 64 97 03/27/19 22:56 57 L 93 03/27/19 22:54 66 97 03/27/19 22:50 64 128/60 93 03/27/19 22:49 63 97 03/27/19 22:45 64 93 03/27/19 22:44 61 96 03/27/19 22:39 75 97 03/27/19 22:35 69 132/60 03/27/19 22:34 72 96 03/27/19 22:29 75 96 03/27/19 22:28 73 93 03/27/19 22:24 73 97 03/27/19 22:22 65 94 03/27/19 22:20 65 122/56 L 03/27/19 22:19 62 95 03/27/19 22:15 68 93 03/27/19 22:14 69 95 03/27/19 22:10 70 92 03/27/19 22:09 67 94 03/27/19 22:05 70 131/63 03/27/19 22:04 65 90 03/27/19 22:01 70 94 03/27/19 21:59 78 98 03/27/19 21:54 71 97 03/27/19 21:50 79 133/59 L 03/27/19 21:49 78 97 03/27/19 21:47 69 123/57 L 03/27/19 21:44 75 130/58 L 98 03/27/19 21:41 77 118/56 L 03/27/19 21:39 79 98 03/27/19 21:38 83 126/58 L 03/27/19 21:36 79 129/59 L 03/27/19 21:34 81 126/57 L 98 03/27/19 21:32 76 131/67 03/27/19 21:29 75 128/60 98 03/27/19 21:24 77 98 03/27/19 21:20 74 142/75 H 03/27/19 21:19 76 100 03/27/19 21:17 80 135/77 03/27/19 21:14 65 129/71 100 03/27/19 21:09 69 100 03/27/19 21:08 78 156/67 H 03/27/19 21:05 71 147/84 H 03/27/19 21:04 63 100 03/27/19 21:02 59 L 140/71 03/27/19 20:59 71 100 03/27/19 19:10 36.6 C 03/27/19 18:26 78 20 130/70 03/27/19 17:05 76 20 127/57 L 03/27/19 14:24 36.5 C 69 20 140/77 03/27/19 13:41 36.5 C 69 20 140/77
--- NOTE | 2019-03-28 01:08 | Labor Progress Brief Note ---
Date of Service March 28, 2019 Doing well FHR: Poor tracing quality Ctx;1-3mins VE; 5/50/-1 On Pitocin scalp placed w/o difficulty Results & Data Vital Signs (Past 12 Hours) Vital Signs Temp Pulse Resp BP Pulse Ox 03/28/19 01:04 68 97 03/28/19 00:59 76 97 03/28/19 00:54 74 97 03/28/19 00:50 74 116/59 L 03/28/19 00:49 71 96 03/28/19 00:48 81 93 03/28/19 00:44 70 96 03/28/19 00:42 66 93 03/28/19 00:39 66 95 03/28/19 00:37 65 94 03/28/19 00:36 63 122/61 03/28/19 00:34 67 95 03/28/19 00:29 67 95 03/28/19 00:24 71 97 03/28/19 00:22 68 94 03/28/19 00:21 63 122/58 L 03/28/19 00:19 60 96 03/28/19 00:17 70 94 03/28/19 00:14 65 95 03/28/19 00:10 66 94 03/28/19 00:09 63 96 03/28/19 00:05 60 119/56 L 03/28/19 00:04 64 95 03/28/19 00:03 66 94 03/27/19 23:59 60 95 03/27/19 23:57 67 94 03/27/19 23:55 36.8 C 03/27/19 23:54 65 97 03/27/19 23:50 60 122/58 L 03/27/19 23:49 63 93 03/27/19 23:48 57 L 94 03/27/19 23:44 64 96 03/27/19 23:42 59 L 94 03/27/19 23:39 58 L 94 03/27/19 23:37 62 94 03/27/19 23:36 58 L 118/58 L 03/27/19 23:34 57 L 95 03/27/19 23:32 62 93 03/27/19 23:29 69 95 03/27/19 23:24 71 97 03/27/19 23:20 62 122/61 03/27/19 23:19 66 97 03/27/19 23:14 71 97 03/27/19 23:09 63 96 03/27/19 23:07 65 94 03/27/19 23:05 69 123/59 L 03/27/19 23:04 69 96 03/27/19 22:59 64 97 03/27/19 22:56 57 L 93 03/27/19 22:54 66 97 03/27/19 22:50 64 128/60 93 03/27/19 22:49 63 97 03/27/19 22:45 64 93 03/27/19 22:44 61 96 03/27/19 22:39 75 97 03/27/19 22:35 69 132/60 03/27/19 22:34 72 96 03/27/19 22:29 75 96 03/27/19 22:28 73 93 03/27/19 22:24 73 97 03/27/19 22:22 65 94 03/27/19 22:20 65 122/56 L 03/27/19 22:19 62 95 03/27/19 22:15 68 93 03/27/19 22:14 69 95 03/27/19 22:10 70 92 03/27/19 22:09 67 94 03/27/19 22:05 70 131/63 03/27/19 22:04 65 90 03/27/19 22:01 70 94 03/27/19 21:59 78 98 03/27/19 21:54 71 97 03/27/19 21:50 79 133/59 L 03/27/19 21:49 78 97 03/27/19 21:47 69 123/57 L 03/27/19 21:44 75 130/58 L 98 03/27/19 21:41 77 118/56 L 03/27/19 21:39 79 98 03/27/19 21:38 83 126/58 L 03/27/19 21:36 79 129/59 L 03/27/19 21:34 81 126/57 L 98 03/27/19 21:32 76 131/67 03/27/19 21:29 75 128/60 98 03/27/19 21:24 77 98 03/27/19 21:20 74 142/75 H 03/27/19 21:19 76 100 03/27/19 21:17 80 135/77 03/27/19 21:14 65 129/71 100 03/27/19 21:09 69 100 03/27/19 21:08 78 156/67 H 03/27/19 21:05 71 147/84 H 03/27/19 21:04 63 100 03/27/19 21:02 59 L 140/71 03/27/19 20:59 71 100 03/27/19 19:10 36.6 C 03/27/19 18:26 78 20 130/70 03/27/19 17:05 76 20 127/57 L 03/27/19 14:24 36.5 C 69 20 140/77 03/27/19 13:41 36.5 C 69 20 140/77
[2019-03-28] MEDS ORDERED: METHYLERGONOVINE MALEATE 0.2 MG/ML AMP ONE (03:18)
[2019-03-28] MEDS ORDERED: SUPERCREAM 0.870% 15 GM JAR EXT PRN (03:28)
[2019-03-28] MEDS ORDERED: HYDROCORTISONE ACETATE 25 MG SUPP PR PRN (03:28)
[2019-03-28] MEDS ORDERED: ACETAMINOPHEN 325 MG TAB PO PRN (03:28)
[2019-03-28] MEDS ORDERED: miSOPROStol 200 MCG TAB PR ONE (03:28)
[2019-03-28] MEDS ORDERED: OXYTOCIN 30 UNITS/500 ML BAG IV PRN (03:28)
[2019-03-28] MEDS ORDERED: BENZOCAINE 20% AER SPR 82.5 GM CAN EXT PRN (03:28)
[2019-03-28] MEDS ORDERED: METHYLERGONOVINE MALEATE 0.2 MG/ML AMP IM ONE (03:28)
[2019-03-28] MEDS ORDERED: DIPHTHERIA/TETANUS/PERTUSSIS 0.5 ML SYR/VIAL IM ONE (03:28)
[2019-03-28] MEDS ORDERED: BISACODYL 10 MG SUPP PR PRN (03:28)
[2019-03-28] MEDS: IBUPROFEN 600 MG TAB PO PRN ×4 (04:13→21:17)
--- NOTE | 2019-03-28 07:29 | Obstetrical Progress Note ---
Date of Service March 28, 2019 Assessment & Plan (1) normal course: PPD #1 pt doing well no complaints Willl start her on Lovenox this AM Subjective Ambulation: ambulating normally Voiding: no voiding problems Passing Gas:: Yes Diet Tolerance:: regular diet Lochia:: Small Feeding Type:: breast feeding Review of Systems All systems reviewed & are unremarkable except as noted in HPI & below Physical Exam Constitutional WD/WN, vitals as above well developed and well nourished Eyes PERRL, conjunctivae normal, anicteric sclerae Neck trachea midline, no thyromegaly Respiratory normal respiratory effort, lungs clear to auscultation Auscultation: no crackles, no rales and no wheezes Cardiovascular RRR, no murmur, no edema Gastrointestinal (Abdomen) normal bowel sounds, soft, nontender, no hepatosplenomegaly Uterus is below umbilicus Musculoskeletal no cyanosis or clubbing, extremities motor strength 5/5 Skin no rashes, warm and dry Neurologic patellar DTR's 2+ bilat, sensation intact Psychiatric A+Ox3, euthymic affect Genitourinary normal external appearance Results & Data Vital Signs (Past 12 Hours) Vital Signs Temp Pulse BP Pulse Ox 03/28/19 06:17 72 127/69 03/28/19 06:01 52 L 120/58 L 03/28/19 05:47 62 118/56 L 03/28/19 05:31 121/56 L 03/28/19 05:16 62 112/58 L 03/28/19 05:01 62 115/54 L 03/28/19 04:47 66 122/56 L 03/28/19 04:32 69 132/53 L 03/28/19 04:17 49 L 126/59 L 03/28/19 04:02 55 L 129/61 03/28/19 03:47 61 123/60 03/28/19 03:30 71 123/63 03/28/19 03:20 74 142/63 H 03/28/19 03:17 85 136/70 03/28/19 03:14 76 97 03/28/19 03:09 110 H 97 03/28/19 03:04 84 97 03/28/19 02:59 96 H 97 03/28/19 02:54 99 H 98 03/28/19 02:49 70 97 03/28/19 02:46 64 94 03/28/19 02:44 63 97 03/28/19 02:39 63 95 03/28/19 02:36 57 L 116/59 L 03/28/19 02:35 64 93 03/28/19 02:34 63 95 03/28/19 02:30 36.8 C 03/28/19 02:29 67 95 03/28/19 02:24 61 95 03/28/19 02:22 61 118/55 L 03/28/19 02:19 64 95 03/28/19 02:14 63 95 03/28/19 02:10 68 94 03/28/19 02:09 69 97 03/28/19 02:05 62 129/60 03/28/19 02:04 64 95 03/28/19 02:01 61 93 03/28/19 01:59 79 96 03/28/19 01:54 62 96 03/28/19 01:53 67 94 03/28/19 01:51 64 128/70 03/28/19 01:49 73 98 03/28/19 01:45 59 L 94 03/28/19 01:44 59 L 95 03/28/19 01:39 65 97 03/28/19 01:38 65 94 03/28/19 01:35 66 125/59 L 03/28/19 01:34 64 96 03/28/19 01:29 60 96 03/28/19 01:24 60 96 03/28/19 01:22 59 L 131/65 93 03/28/19 01:19 61 95 03/28/19 01:16 65 92 03/28/19 01:14 68 95 03/28/19 01:09 65 97 03/28/19 01:06 87 138/72 03/28/19 01:04 68 97 03/28/19 00:59 76 97 03/28/19 00:54 74 97 03/28/19 00:50 74 116/59 L 03/28/19 00:49 71 96 03/28/19 00:48 81 93 03/28/19 00:44 70 96 03/28/19 00:42 66 93 03/28/19 00:39 66 95 03/28/19 00:37 65 94 03/28/19 00:36 63 122/61 03/28/19 00:34 67 95 03/28/19 00:29 67 95 03/28/19 00:24 71 97 03/28/19 00:22 68 94 03/28/19 00:21 63 122/58 L 03/28/19 00:19 60 96 03/28/19 00:17 70 94 03/28/19 00:14 65 95 03/28/19 00:10 66 94 03/28/19 00:09 63 96 03/28/19 00:05 60 119/56 L 03/28/19 00:04 64 95 03/28/19 00:03 66 94 03/27/19 23:59 60 95 03/27/19 23:57 67 94 03/27/19 23:55 36.8 C 03/27/19 23:54 65 97 03/27/19 23:50 60 122/58 L 03/27/19 23:49 63 93 03/27/19 23:48 57 L 94 03/27/19 23:44 64 96 03/27/19 23:42 59 L 94 03/27/19 23:39 58 L 94 03/27/19 23:37 62 94 03/27/19 23:36 58 L 118/58 L 03/27/19 23:34 57 L 95 03/27/19 23:32 62 93 03/27/19 23:29 69 95 03/27/19 23:24 71 97 03/27/19 23:20 62 122/61 03/27/19 23:19 66 97 03/27/19 23:14 71 97 03/27/19 23:09 63 96 03/27/19 23:07 65 94 03/27/19 23:05 69 123/59 L 03/27/19 23:04 69 96 03/27/19 22:59 64 97 03/27/19 22:56 57 L 93 03/27/19 22:54 66 97 03/27/19 22:50 64 128/60 93 03/27/19 22:49 63 97 03/27/19 22:45 64 93 03/27/19 22:44 61 96 03/27/19 22:39 75 97 03/27/19 22:35 69 132/60 03/27/19 22:34 72 96 03/27/19 22:29 75 96 03/27/19 22:28 73 93 03/27/19 22:24 73 97 03/27/19 22:22 65 94 03/27/19 22:20 65 122/56 L 03/27/19 22:19 62 95 03/27/19 22:15 68 93 03/27/19 22:14 69 95 03/27/19 22:10 70 92 03/27/19 22:09 67 94 03/27/19 22:05 70 131/63 03/27/19 22:04 65 90 03/27/19 22:01 70 94 03/27/19 21:59 78 98 03/27/19 21:54 71 97 03/27/19 21:50 79 133/59 L 03/27/19 21:49 78 97 03/27/19 21:47 69 123/57 L 03/27/19 21:44 75 130/58 L 98 03/27/19 21:41 77 118/56 L 03/27/19 21:39 79 98 03/27/19 21:38 83 126/58 L 03/27/19 21:36 79 129/59 L 03/27/19 21:34 81 126/57 L 98 03/27/19 21:32 76 131/67 03/27/19 21:29 75 128/60 98 03/27/19 21:24 77 98 03/27/19 21:20 74 142/75 H 03/27/19 21:19 76 100 03/27/19 21:17 80 135/77 03/27/19 21:14 65 129/71 100 03/27/19 21:09 69 100 03/27/19 21:08 78 156/67 H 03/27/19 21:05 71 147/84 H 03/27/19 21:04 63 100 03/27/19 21:02 59 L 140/71 03/27/19 20:59 71 100
--- NOTE | 2019-03-28 07:57 | Operative Report ---
DATE OF OPERATION: 03/27/2019 DELIVERY NOTE The patient delivered a live in left occiput anterior presentation. There was nuchal cord which was easily reduced. was delivered, placed on mother's abdomen. Cord was clamped and cut after 1 minute. 's weight is pending. Apgars 9 and 10. Inspection of the perineum showed no laceration or tears. Estimated blood loss is 500 mL. Inspection of the placenta shows grossly normal placenta. The patient, however, was on Lovenox for history of thrombotic disease in the past. Placenta is therefore sent to pathology for pathological analysis. All instruments were removed from the vagina and accounted for x2. Baby and mother are doing well in recovery. I attest to the content of the Intraoperative Record and any orders documented therein. Any exception s are noted below.
--- NOTE | 2019-03-28 08:06 | Anesthesia Procedure Note ---
Date of Service March 28, 2019 Anesthesia Post Epidural Note Vital Signs Vital Signs: Temp Pulse Resp BP Pulse Ox 36.6 C 50 L 18 115/79 97 03/28/19 07:59 03/28/19 07:59 03/28/19 07:59 03/28/19 07:59 03/28/19 03:14 Notes Mental Status: alert / awake / arousable and participated in evaluation Nausea / Vomiting: adequately controlled Pain: adequately controlled Airway Patency, RR, SpO2: stable & adequate BP & HR: stable & adequate Hydration State: stable & adequate Neuraxial Anesthesia: was administered and sensory block resolved Anesthetic Complications: no major complications apparent and Pt Satisfied with anesthetic care Epidural: Removed without complications, With tip intact and See Notes Notes: Actual epidural site clean, dry and intact without bruising, bleeding or signs of infection. Of note, patient with 2 finger sized bruises along both sides of placement site where I palpated prior to placement. Patient has been u p ambulating without complications and block has fully resolved. Patient also states that she bruises very easily and is not surprised by the bruising. But due to bruising near placement site in combination with her history of lovenox treatment 48 hours prior to placement, the nurse caring for the patient and Dr. Wyatt (oncoming anesthesiologist) were alerted to watch for any changes in neurological status.
[2019-03-28] MEDS: DOCUSATE SODIUM 100 MG CAP PO SCH ×2 (08:07→21:17)
[2019-03-28] MEDS: FERROUS SULFATE 325 MG TAB PO SCH (08:07)
[2019-03-28] MEDS: PRENATAL VITAMIN 1 TAB PO SCH (08:08)
[2019-03-28] MEDS: ENOXAPARIN 80 MG/0.8 ML SYR SQ SCH (09:26)
[2019-03-28] MEDS: DICYCLOMINE HCL 20 MG TAB PO PRN ×2 (15:25→22:32)
[2019-03-29] MEDS: IBUPROFEN 600 MG TAB PO PRN ×4 (05:53→19:51)
[2019-03-29 07:41] LABS: Hematocrit (blood only) 35.1 % (37-47); Hemoglobin 11.9 g/dL (12.0-16.0); Mean Corpuscular Hgb Conc 33.9 g/dL (32-36); Mean Corpuscular Volume 89.3 fL (80-100); Mean Platelet Volume 10.3 fL (7.4-10.4); Platelet Count 187 K/uL (130-400); RDW Coefficient of Variation 14.4 % (11.5-14.5); RDW Standard Deviation 47.2 fL (36.4-46.3); Red Blood Count 3.93 M/uL (4.2-5.4); White Blood Count 7.36 K/uL (4.8-10.8)
[2019-03-29] MEDS: FERROUS SULFATE 325 MG TAB PO SCH (08:36)
[2019-03-29] MEDS: ENOXAPARIN 80 MG/0.8 ML SYR SQ SCH (08:36)
[2019-03-29] MEDS: DOCUSATE SODIUM 100 MG CAP PO SCH ×2 (08:36→19:52)
[2019-03-29] MEDS: PRENATAL VITAMIN 1 TAB PO SCH (08:38)
--- NOTE | 2019-03-29 09:01 | Obstetrical Progress Note ---
Date of Service March 29, 2019 Subjective doing well ambulating and tolerating diet well Physical Exam Constitutional: WD/WN, vitals as above comfortable fundus firm abdomen soft minimal lower extremity edema neg Aurelio's Will stay till tomorrow pending baby's discharge Results & Data Vital Signs (Past 12 Hours) Vital Signs Temp Pulse Resp BP 03/29/19 02:02 36.7 C 67 18 121/80
[2019-03-29] MEDS: DICYCLOMINE HCL 20 MG TAB PO PRN ×2 (15:22→22:30)
[2019-03-29] MEDS ORDERED: BISACODYL 5 MG TABEC PO SCH (20:00)
[2019-03-30] MEDS: IBUPROFEN 600 MG TAB PO PRN ×2 (05:02→11:41)
[2019-03-30] MEDS: DICYCLOMINE HCL 20 MG TAB PO PRN (05:22)
[2019-03-30 07:41] LABS: Hematocrit (blood only) 35.8 % (37-47); Hemoglobin 12.1 g/dL (12.0-16.0)
[2019-03-30] MEDS: DOCUSATE SODIUM 100 MG CAP PO SCH (08:44)
[2019-03-30] MEDS: ENOXAPARIN 80 MG/0.8 ML SYR SQ SCH (08:44)
[2019-03-30] MEDS: FERROUS SULFATE 325 MG TAB PO SCH (08:44)
[2019-03-30] MEDS: PRENATAL VITAMIN 1 TAB PO SCH (08:44)
--- NOTE | 2019-03-30 10:28 | Obstetrical Progress Note ---
Date of Service March 30, 2019 Assessment & Plan (1) normal course: PPD #2 Pt doing well disch home with instructions Subjective Ambulation: ambulating normally Voiding: no voiding problems Passing Gas:: Yes Diet Tolerance:: regular diet Lochia:: Small Feeding Type:: breast feeding Review of Systems All systems reviewed & are unremarkable except as noted in HPI & below Physical Exam Constitutional WD/WN, vitals as above well developed and well nourished Eyes PERRL, conjunctivae normal, anicteric sclerae Neck trachea midline, no thyromegaly Respiratory normal respiratory effort, lungs clear to auscultation Auscultation: no crackles, no rales and no wheezes Cardiovascular RRR, no murmur, no edema Gastrointestinal (Abdomen) normal bowel sounds, soft, nontender, no hepatosplenomegaly Uterus is below umbilicus Musculoskeletal no cyanosis or clubbing, extremities motor strength 5/5 Skin no rashes, warm and dry Neurologic patellar DTR's 2+ bilat, sensation intact Psychiatric A+Ox3, euthymic affect Genitourinary normal external appearance Results & Data Vital Signs (Past 12 Hours) Vital Signs Temp Pulse Resp BP Pulse Ox 03/30/19 07:35 36.5 C 54 L 18 109/69 100 03/30/19 00:20 36.6 C 74 18 138/73 100
== END 2019-03-30 11:55 | disposition home or self-care (01) | DRG 806 ==
LOC: 4S1 13:21 → 4S2 03-28 08:00

== ENCOUNTER 2020-10-06 07:38 | Inpatient (IN) ==
[2020-10-06] MEDS ORDERED: OXYTOCIN 30 UNITS/500 ML BAG IV PRN ×3 (07:46→20:21)
--- NOTE | 2020-10-06 08:07 | History & Physical Report ---
Date of Service October 06, 2020 Assessment & Plan (1) History of DVT (deep vein thrombosis): (2) Obesity affecting in third trimester, antepartum: 30 yo at 39.2 wks with Class III obesity, h/o DVT, on Lovenox VSS Afebrile FHR reassuring GBS negative Plan to admit, monitor, 's, IV pitocin, AROM when able Admission and Anticipated Discharge Date Admission Date: October 06, 2020 History of Present Illness Primary Care Provider: Ronel Hector DO Patient is an 30-year-old G5, P3013 at 39 weeks and 2 days of gestation who was scheduled for IOL at term. She has no compliants No ctxs/ LOF/VB/ Fever/ chills/ ABARCA/ Change in visio/N&V/ epig or RUQ pain, no leg pain either No leakage of fluid or bleeding, good movements. She was in on 10/03 evening with complains of right leg swelling and pain and it was superficial thrombophlebitis. Neg for DVT. She has history of DVTin the past, in both lower legs never had in her lungs. She has been on 150 mg of Lovenox twice a day. Last dose was on 10/04 evening. Her has been complicated by h/o DVT Class III obesity h/p PCOS h/o Hypothroidism, resolved Migraine Close interval Allergies Allergy/AdvReac Type Severity Reaction Status Date / Time heparin Allergy Severe CELLULITIS Verified 10/06/20 08:04 AT INJECTION SITES amoxicillin Allergy Intermediate HIVES,RASH Verified 10/06/20 08:04 HIGH BP,FAST HEART RATE,DIARRHEA,SOB blueberry Allergy Intermediate HIVES Verified 10/06/20 08:04 ceftriaxone Allergy Intermediate itching,HIV Verified 10/06/20 08:04 ES cephalexin Allergy Intermediate ittchy Verified 10/06/20 08:04 oxycodone Allergy Intermediate hives n/v Verified 10/06/20 08:04 Penicillins Allergy Intermediate AMOXICILLIN Verified 10/06/20 08:04 SOB, TACHYCARDIA & HIVES vancomycin Allergy Intermediate ITCHING,SOB Verified 10/06/20 08:04 codeine Allergy Mild RASH Verified 10/06/20 08:04 house dust Allergy Mild Wheezing, Verified 10/06/20 08:04 Shortness of Breath human papillomavirus Allergy Mild RASH RAPID Verified 10/06/20 08:04 vaccine, quadr HEART BEAT morphine Allergy Mild ABDOMINAL Verified 10/06/20 08:04 PAIN,DIARRHEA,HIVES NAUSEA AND VOMITING tree and shrub pollen Allergy Hives Verified 10/06/20 08:04 acetaminophen AdvReac Severe ELEVATED Verified 10/06/20 08:04 LFTS WITH MINIMAL DOSES tramadol AdvReac Mild nausea, Verified 10/06/20 08:04 vomiting Unclassified Drugs AdvReac Intermediate Vicryl Uncoded 10/06/20 08:04 Sutures - infection outcome x 2 Home Medications Medication Instructions Recorded Confirmed Type enoxaparin [Lovenox] 120 mg SUBCUT Q12H 09/04/20 10/03/20 History pediatric multivitamin no.76 2 tab PO DAILY 09/04/20 10/03/20 History [Flintstones Complete] Patient History Medical History Deep vein thrombosis (DVT) of left lower extremity DVT (deep venous thrombosis) Elevated liver enzymes GERD (gastroesophageal reflux disease) H/O deep venous thrombosis Hypothyroid IBS (irritable bowel syndrome) IBS (irritable bowel syndrome) Colonoscopy Migraine Superficial thrombophlebitis of left leg TMJ (temporomandibular joint disorder) Surgical History H/O knee surgery 7 surgeries. Patient reports bilateral knees. H/O vein stripping Hx laparoscopic cholecystectomy Social History Smoking Status: Never smoker Hx Alcohol Use: No Hx Substance Use: No Preferred Language: Turkish Communication Ability: Effective Visual Impairment: No Limitations Hearing Ability: Normal Electrical Intern Required: No Beliefs That Will Affect Care: None marital status: Current Living Situation: Spouse and Family Current Living Situation Comment: and 3 children Feels Safe at Home: Yes Assistive Devices: Glasses OB History 3 FT [employer] History No h/o STD's Review of Systems All systems reviewed & are unremarkable except as noted in HPI & below Physical Exam Constitutional: WD/WN, vitals as above well developed and well nourished Comfortable, NAD Gastrointestinal (Abdomen): normal bowel sounds, soft, nontender, no hepatosplenomegaly (GRAVID) Bed side US: Vertex, FHR 140's Musculoskeletal: Homans sign neg/ neg Rt anterior superf. varicose vein+ Genitourinary: normal external appearance Manual OB Exam: + cervical dilation 2 cm, + cervical effacement 50% and + station (-3) OB Exam Monitor Tracing: + external uterine monitor used and + category I Results & Data ([facility]) Vital Signs (Past 12 Hours) Vital Signs Temp Pulse Resp BP 10/06/20 07:45 90 126/70 10/06/20 07:43 36.5 C 18
[2020-10-06 08:11] LABS: Hematocrit (blood only) 35.9 % (37-47); Mean Corpuscular Hemoglobin 29.6 pg (25-34); Mean Corpuscular Hgb Conc 33.4 g/dL (32-36); Mean Corpuscular Volume 88.4 fL (80-100); Mean Platelet Volume 10.7 fL (7.4-10.4); Platelet Count 206 K/uL (130-400); RDW Coefficient of Variation 14.8 % (11.5-14.5); RDW Standard Deviation 47.8 fL (36.4-46.3); Red Blood Count 4.06 M/uL (4.2-5.4); White Blood Count 7.87 K/uL (4.8-10.8)
[2020-10-06 08:42] LABS: Albumin Level 2.7 gm/dl (3.4-5.0); Calcium 9.2 mg/dl (8.5-10.1); Creatinine Clr Calc Pharmacy 204.1 ml/min; Est GFR (African American) 139.1; Potassium 3.4 mmol/L (3.5-5.1)
[2020-10-06 08:45] LABS: Albumin Globulin Ratio 0.7 (0.9-2); Bilirubin,Total 0.3 mg/dl (0.2-1); Globulin 3.9 gm/dl (2.5-4.0); Total Protein 6.6 gm/dl (6.4-8.2)
[2020-10-06] MEDS: LACTATED RINGER'S 1,000 ML IV PRN ×3 (10:00→17:34)
[2020-10-06] MEDS ORDERED: ePHEDrine sulfate 50 MG/ML AMP ONE (12:26)
[2020-10-06] MEDS ORDERED: SODIUM CHLORIDE 0.9% INJ 10 ML VIAL ONE (12:26)
[2020-10-06] MEDS ORDERED: BUPIVACAINE 0.25% 30 ML VIAL ONE (12:26)
[2020-10-06] MEDS ORDERED: fentaNYL citrate 100 MCG/2 ML VIAL ONE (12:26)
[2020-10-06] MEDS ORDERED: fentaNYL 2MCG/ML ROPIVACAINE 1.25MG/ML 100 ML BAG EPI ONE (12:27)
--- NOTE | 2020-10-06 12:59 | Obstetrical Progress Note ---
Date of Service October 06, 2020 Assessment & Plan Admission and Anticipated Discharge Date Admission Date: October 06, 2020 Subjective Patient is reevaluated Getting painful and desires epidural for pain VE; 3/50%/ -3 FHR categ I [place]: ctxs q 2-4 min, pitocin is at 10miu/min Continue to monitor Epidural for pain Results & Data ([facility]) Vital Signs (Past 12 Hours) Vital Signs Temp Pulse Resp BP Pulse Ox 10/06/20 12:52 72 99 10/06/20 12:47 72 100 10/06/20 12:42 71 100 10/06/20 12:37 71 100 10/06/20 12:32 75 100 10/06/20 12:04 88 128/73 10/06/20 11:03 82 133/65 10/06/20 11:00 36.5 C 18 10/06/20 10:01 85 141/70 H 10/06/20 07:45 90 126/70 10/06/20 07:43 36.5 C 18
[2020-10-06] MEDS ORDERED: LIDOCAINE HCL 2% MPF (LOCAL) 5 ML VIAL INFIL ONE (13:24)
--- NOTE | 2020-10-06 13:38 | Anesthesiology Consultation ---
Date of Service October 06, 2020 Assessment & Plan Chart Review Chart Review: Acceptable Risk for Labor Epidural Consults Requested none History Height/Weight Height: 5 ft 9 in Weight: 153.768 kg Allergies Allergy/AdvReac Type Severity Reaction Status Date / Time heparin Allergy Severe CELLULITIS Verified 10/06/20 08:04 AT INJECTION SITES amoxicillin Allergy Intermediate HIVES,RASH Verified 10/06/20 08:04 HIGH BP,FAST HEART RATE,DIARRHEA,SOB blueberry Allergy Intermediate HIVES Verified 10/06/20 08:04 ceftriaxone Allergy Intermediate itching,HIV Verified 10/06/20 08:04 ES cephalexin Allergy Intermediate ittchy Verified 10/06/20 08:04 oxycodone Allergy Intermediate hives n/v Verified 10/06/20 08:04 Penicillins Allergy Intermediate AMOXICILLIN Verified 10/06/20 08:04 SOB, TACHYCARDIA & HIVES vancomycin Allergy Intermediate ITCHING,SOB Verified 10/06/20 08:04 codeine Allergy Mild RASH Verified 10/06/20 08:04 house dust Allergy Mild Wheezing, Verified 10/06/20 08:04 Shortness of Breath human papillomavirus Allergy Mild RASH RAPID Verified 10/06/20 08:04 vaccine, quadr HEART BEAT morphine Allergy Mild ABDOMINAL Verified 10/06/20 08:04 PAIN,DIARRHEA,HIVES NAUSEA AND VOMITING tree and shrub pollen Allergy Hives Verified 10/06/20 08:04 acetaminophen AdvReac Severe ELEVATED Verified 10/06/20 08:04 LFTS WITH MINIMAL DOSES tramadol AdvReac Mild nausea, Verified 10/06/20 08:04 vomiting Unclassified Drugs AdvReac Intermediate Vicryl Uncoded 10/06/20 08:04 Sutures - infection outcome x 2 Medications Home Medications Medication Instructions Recorded Confirmed Last Taken enoxaparin [Lovenox] 120 mg SUBCUT Q12H 09/04/20 10/06/20 10/04/20 22:00 pediatric multivitamin no.76 2 tab PO DAILY 09/04/20 10/06/20 10/05/20 08:00 [Jessica Complete] Active Medications Generic Name Dose Route Start Last Admin Trade Name Freq PRN Reason Stop Dose Admin Lactated Ringer's 1,000 mls @ 150 mls/hr 10/06/20 07:46 10/06/20 12:57 Lr IV 10/08/20 07:45 150 mls/hr .[id number] PRN Administration L&D Protocol Protocol Oxytocin 30 units in 500 mls @ 10 mls/hr 10/06/20 07:59 10/06/20 13:36 Pitocin IV 10/08/20 07:58 0.72 units/hr .Q24H PRN 12 mls/hr Labor Induction/Augmentation Titration Protocol 0.6 UNITS/HR Past Medical History Medical History Deep vein thrombosis (DVT) of left lower extremity DVT (deep venous thrombosis) Last DVT was after last in 2019; superficial thrombosis currently on right lower outer leg. Elevated liver enzymes GERD (gastroesophageal reflux disease) H/O deep venous thrombosis Hypothyroid Currently resolved; no meds IBS (irritable bowel syndrome) IBS (irritable bowel syndrome) Colonoscopy Migraine Superficial thrombophlebitis of left leg TMJ (temporomandibular joint disorder) Past Surgical History Surgical History H/O knee surgery 7 surgeries. Patient reports bilateral knees. H/O vein stripping Hx laparoscopic cholecystectomy Social History Smoking Status: Never smoker Hx Alcohol Use: No Hx Substance Use: No substance use type: does not use Physical Exam Vital Signs Last Vital Signs Temp 36.5 C 10/06/20 11:00 Pulse 85 10/06/20 13:36 Resp 18 10/06/20 11:00 BP 98/50 L 10/06/20 13:36 Pulse Ox 100 10/06/20 13:32 Testing Laboratory Results 10/06/20 07:59 10/06/20 07:59 Blood Type O Positive 10/06/20 07:59 Antibody Screen NEGATIVE 10/06/20 07:59
[2020-10-06] MEDS ORDERED: NALOXONE HCL 1 MG in SODIUM CHLORIDE 0.9% 1000ML 1,000 ML IV PRN (13:42)
[2020-10-06] MEDS ORDERED: fentaNYL 2MCG/ML ROPIVACAINE 1.25MG/ML 100 ML BAG EPI PRN (13:42)
[2020-10-06] MEDS ORDERED: ePHEDrine sulfate 50 MG/ML AMP IV PRN (13:42)
[2020-10-06] MEDS ORDERED: NALOXONE HCL 0.4 MG/1 ML VIAL/CARP IV PRN (13:42)
[2020-10-06] MEDS ORDERED: diphenhydrAMINE 50 MG/ML VIAL IV PRN (13:42)
--- NOTE | 2020-10-06 14:27 | Obstetrical Progress Note ---
Date of Service October 06, 2020 Assessment & Plan Admission and Anticipated Discharge Date Admission Date: October 06, 2020 Subjective Patient is reevaluated She is comfortable now, received epidural for pain Feels pressure with ctxs VE; 4/ 60%/ -2, AROM'ed clear fluid FHR categ I [place]: cyxs q 2-4 min I discussed with her clinical pharmacist at [facility] who recommended to take Lovenon till yesterday am Patient injected Lovenox on 10/04 evening, not yesterday She recommended to continue Lovenox at the same dose, 150 bid and she hazel transition to Warfarin Continue to monitor Results & Data ([facility]) Vital Signs (Past 12 Hours) Vital Signs Temp Pulse Resp BP Pulse Ox 10/06/20 14:22 82 100 10/06/20 14:21 64 105/51 L 10/06/20 14:17 67 100 10/06/20 14:15 78 91/54 L 10/06/20 14:12 86 100 10/06/20 14:11 75 98/53 L 10/06/20 14:07 75 97 10/06/20 14:06 64 95/48 L 10/06/20 14:02 70 98/51 L 96 10/06/20 13:57 72 97 10/06/20 13:55 69 97/49 L 10/06/20 13:52 76 98 10/06/20 13:50 70 104/51 L 10/06/20 13:47 71 98 10/06/20 13:46 76 107/58 L 10/06/20 13:45 20 10/06/20 13:42 74 100 10/06/20 13:40 71 101/51 L 10/06/20 13:38 78 102/51 L 10/06/20 13:37 77 100 10/06/20 13:36 85 98/50 L 10/06/20 13:34 82 99/55 L 10/06/20 13:32 88 100 10/06/20 13:31 91 H 104/51 L 10/06/20 13:30 22 10/06/20 13:29 96 H 109/53 L 10/06/20 13:28 85 112/53 L 10/06/20 13:27 79 100 10/06/20 13:26 79 112/56 L 10/06/20 13:24 99 H 119/58 L 10/06/20 13:22 97 H 100 10/06/20 13:17 89 100 10/06/20 13:12 94 H 99 10/06/20 13:09 95 H 90 10/06/20 13:07 91 H 100 10/06/20 13:03 83 133/69 10/06/20 13:02 80 100 10/06/20 12:57 75 100 10/06/20 12:52 72 99 10/06/20 12:47 72 100 10/06/20 12:42 71 100 10/06/20 12:37 71 100 10/06/20 12:32 75 100 10/06/20 12:04 88 128/73 10/06/20 11:03 82 133/65 10/06/20 11:00 36.5 C 18 10/06/20 10:01 85 141/70 H 10/06/20 07:45 90 126/70 10/06/20 07:43 36.5 C 18
--- NOTE | 2020-10-06 17:25 | Obstetrical Progress Note ---
Date of Service October 06, 2020 Assessment & Plan Admission and Anticipated Discharge Date Admission Date: October 06, 2020 Subjective Patient is reevaluated She feels pressure with ctxs VE; 4-5 cm/ 60%/ -2, FHR categ I [place]: ctxs q 2-3 min, pitocin is at 18 miu/min Unable to monitor baby while on her back Bed side US is done and FHR 140's, baby's back on maternal left Emptied 200 ml urine Will change position to Left lateral with peanut ball Continue to monitor closely Results & Data ([facility]) Vital Signs (Past 12 Hours) Vital Signs Temp Pulse Resp BP Pulse Ox 10/06/20 17:22 69 106/53 L 10/06/20 17:17 78 100 10/06/20 17:16 66 114/55 L 10/06/20 17:12 70 100 10/06/20 17:11 75 121/60 10/06/20 17:07 71 100 10/06/20 17:06 74 122/57 L 10/06/20 17:02 69 129/62 99 10/06/20 16:57 63 91 10/06/20 16:56 60 98/50 L 10/06/20 16:52 64 100 10/06/20 16:50 57 L 104/52 L 10/06/20 16:47 61 100 10/06/20 16:45 57 L 115/58 L 10/06/20 16:42 61 100 10/06/20 16:40 66 115/56 L 91 10/06/20 16:37 63 100 10/06/20 16:35 61 111/58 L 10/06/20 16:32 70 100 10/06/20 16:30 59 L 111/58 L 10/06/20 16:27 62 100 10/06/20 16:25 64 111/58 L 10/06/20 16:22 63 113/55 L 100 10/06/20 16:17 59 L 100 10/06/20 16:15 60 112/56 L 10/06/20 16:12 66 100 10/06/20 16:10 67 110/55 L 10/06/20 16:07 68 100 10/06/20 16:05 62 107/55 L 10/06/20 16:02 62 100 10/06/20 16:00 62 108/57 L 10/06/20 15:57 62 100 10/06/20 15:55 70 105/55 L 10/06/20 15:52 66 100 10/06/20 15:50 64 107/58 L 10/06/20 15:47 63 100 10/06/20 15:45 66 107/59 L 10/06/20 15:42 67 100 10/06/20 15:40 68 108/58 L 10/06/20 15:37 73 100 10/06/20 15:35 73 109/53 L 10/06/20 15:34 36.8 C 18 10/06/20 15:32 76 100 10/06/20 15:30 67 106/53 L 10/06/20 15:27 61 114/52 L 100 10/06/20 15:22 78 99 10/06/20 15:20 65 102/54 L 10/06/20 15:17 75 100 10/06/20 15:15 81 101/57 L 10/06/20 15:12 74 99 10/06/20 15:11 67 101/54 L 10/06/20 15:07 70 100/50 L 99 10/06/20 15:02 65 99 10/06/20 15:01 18 10/06/20 15:00 65 20 102/52 L 10/06/20 14:57 76 100 10/06/20 14:55 74 99/50 L 10/06/20 14:52 75 100 10/06/20 14:50 72 97/49 L 10/06/20 14:47 68 100 10/06/20 14:45 66 18 96/47 L 10/06/20 14:42 66 98 10/06/20 14:40 64 93/46 L 10/06/20 14:37 63 97/46 L 99 10/06/20 14:32 66 93/46 L 100 10/06/20 14:30 36.8 C 20 10/06/20 14:28 76 92/53 L 10/06/20 14:27 75 100 10/06/20 14:26 71 88/49 L 10/06/20 14:22 82 100 10/06/20 14:21 64 105/51 L 10/06/20 14:17 67 100 10/06/20 14:15 78 18 91/54 L 10/06/20 14:12 86 100 10/06/20 14:11 75 98/53 L 10/06/20 14:07 75 97 10/06/20 14:06 64 95/48 L 10/06/20 14:02 70 98/51 L 96 10/06/20 13:57 72 97 10/06/20 13:55 69 97/49 L 10/06/20 13:52 76 98 10/06/20 13:50 70 104/51 L 10/06/20 13:47 71 98 10/06/20 13:46 76 107/58 L 10/06/20 13:45 20 10/06/20 13:42 74 100 10/06/20 13:40 71 101/51 L 10/06/20 13:38 78 102/51 L 10/06/20 13:37 77 100 10/06/20 13:36 85 98/50 L 10/06/20 13:34 82 99/55 L 10/06/20 13:32 88 100 10/06/20 13:31 91 H 104/51 L 10/06/20 13:30 22 10/06/20 13:29 96 H 109/53 L 10/06/20 13:28 85 112/53 L 10/06/20 13:27 79 100 10/06/20 13:26 79 112/56 L 10/06/20 13:24 99 H 119/58 L 10/06/20 13:22 97 H 100 10/06/20 13:17 89 100 10/06/20 13:12 94 H 99 10/06/20 13:09 95 H 90 10/06/20 13:07 91 H 100 10/06/20 13:03 83 133/69 10/06/20 13:02 80 100 10/06/20 12:57 75 100 10/06/20 12:52 72 99 10/06/20 12:47 72 100 10/06/20 12:42 71 100 10/06/20 12:37 71 100 10/06/20 12:32 75 100 10/06/20 12:04 88 128/73 10/06/20 11:03 82 133/65 10/06/20 11:00 36.5 C 18 10/06/20 10:01 85 141/70 H 10/06/20 07:45 90 126/70 10/06/20 07:43 36.5 C 18
[2020-10-06] MEDS ORDERED: Nursing to Pharmacy Communication ONE (19:30)
[2020-10-06] MEDS ORDERED: BENZOCAINE 20% AER SPR 82.5 GM CAN EXT PRN (20:21)
[2020-10-06] MEDS ORDERED: miSOPROStoL 200 MCG TAB PR ONE (20:21)
[2020-10-06] MEDS ORDERED: ACETAMINOPHEN 325 MG TAB PO PRN (20:21)
[2020-10-06] MEDS ORDERED: bisacodyL 10 MG SUPP PR PRN (20:21)
[2020-10-06] MEDS ORDERED: HYDROCORTISONE ACETATE 25 MG SUPP PR PRN (20:21)
[2020-10-06] MEDS ORDERED: SUPERCREAM 0.870% 15 GM JAR EXT PRN (20:21)
[2020-10-06] MEDS ORDERED: MEASLES, MUMPS & RUBELLA VIRUS VIAL SQ ONE (20:21)
[2020-10-06] MEDS ORDERED: DIPHTHERIA/TETANUS/PERTUSSIS 0.5 ML SYR/VIAL IM ONE (20:21)
--- NOTE | 2020-10-06 21:19 | Anesthesia Procedure Note ---
Date of Service October 06, 2020 discussed with nurse about waiting 24 hours after the time of placement of the epidural to restart her lovenox. Anesthesia Post Epidural Note Vital Signs Vital Signs: Temp Pulse Resp BP Pulse Ox 36.8 C 73 16 129/60 100 10/06/20 19:03 10/06/20 21:09 10/06/20 19:03 10/06/20 21:10/06/20 20:37 Notes Mental Status: alert / awake / arousable and participated in evaluation Nausea / Vomiting: adequately controlled Pain: adequately controlled Airway Patency, RR, SpO2: stable & adequate BP & HR: stable & adequate Hydration State: stable & adequate Neuraxial Anesthesia: was administered and sensory block is resolving Anesthetic Complications: no major complications apparent Epidural: Removed without complications and With tip intact
[2020-10-06] MEDS ORDERED: NURSING L&D Epidural Breakthrough Pain Update ONE (21:30)
[2020-10-06] MEDS: IBUPROFEN 600 MG TAB PO PRN (21:51)
[2020-10-06] MEDS: METHYLERGONOVINE MALEATE 0.2 MG TAB PO SCH (21:55)
[2020-10-06] MEDS: DOCUSATE SODIUM 100 MG CAP PO SCH (21:57)
--- NOTE | 2020-10-07 00:25 | Delivery Summary ---
DATE OF OPERATION: 10/06/2020 TIME OF DELIVERY OF BABY: 20:09 p.m. DETAILS OF DELIVERY: The patient was found to be fully dilated and desired to push. She pushed only once and delivered the head without difficulty. There was a nuchal cord around the neck x1 which was reduced. Shoulders were delivered with minimal traction. Baby was handed off to the mother where mouth and nose were suctioned. Cord was clamped x2 and cut at 1 minute delay. Cord blood was obtained. Vagina and perineum were checked for lacerations. They were intact. No lacerations were found and placenta was found to be in the vagina, delivered spontaneous as intact and complete. Uterus was explored, found to be empty. Lower segment was cleared of all clots and debris. Fundus was firm. IV Pitocin was started. EBL was 200 mL and she was also placed a rectal Cytotec to help with the uterine contraction. No complications happened. I was present during whole procedure. Baby was a viable male , Apgars 8/8. Weight is 3373 gr. At the end of the procedure, instrument, sponge count was correct x2. I attest to the content of the Intraoperative Record and any orders documented therein. Any exceptions are noted below. MTDD
[2020-10-07] MEDS ORDERED: ENOXAPARIN INJ 40 MG/0.4 ML SYR SQ ONE (01:00)
[2020-10-07] MEDS: IBUPROFEN 600 MG TAB PO PRN ×5 (01:31→20:33)
[2020-10-07 06:10] LABS: Hematocrit (blood only) 33.4 % (37-47); Hemoglobin 11.2 g/dL (12.0-16.0); Mean Corpuscular Hemoglobin 29.8 pg (25-34); Mean Corpuscular Hgb Conc 33.5 g/dL (32-36); Mean Corpuscular Volume 88.8 fL (80-100); Mean Platelet Volume 10.5 fL (7.4-10.4); Platelet Count 200 K/uL (130-400); RDW Coefficient of Variation 14.9 % (11.5-14.5); RDW Standard Deviation 48.2 fL (36.4-46.3); Red Blood Count 3.76 M/uL (4.2-5.4); White Blood Count 10.27 K/uL (4.8-10.8)
[2020-10-07] MEDS: oxyCODONE HCL IR 5 MG TAB (IMMEDIATE RELEASE) PO PRN ×3 (07:26→20:34)
--- NOTE | 2020-10-07 07:27 | Obstetrical Progress Note ---
Date of Service October 07, 2020 Assessment & Plan Admission and Anticipated Discharge Date Admission Date: October 06, 2020 Subjective Patient is seen and examined. She feels well, no complaints. Ambulating without dizziness Voiding without difficulty Tolerating regular diet with out N&V Bleeding is minimal No fever/ chills/ CP/ SOB/ N&V/ Leg pain Bottle feeding without problems Vital Signs Temp Pulse Pulse Resp BP BP Pulse Ox 10/07/20 03:30 36.6 C 71 16 114/88 98 10/06/20 23:25 36.7 C 77 16 113/69 10/06/20 22:22 79 117/57 L 10/06/20 21:51 91 H 119/59 L 10/06/20 21:36 74 126/66 10/06/20 21:21 70 129/68 10/06/20 21:20 36.8 C 18 10/06/20 21:09 73 129/60 10/06/20 20:51 78 111/56 L 10/06/20 20:37 79 100 10/06/20 20:36 78 113/58 L 10/06/20 20:32 86 100 10/06/20 20:27 87 100 10/06/20 20:22 83 100 10/06/20 20:21 94 H 108/83 10/06/20 20:17 81 100 10/06/20 20:12 88 100 10/06/20 20:07 127 H 100 10/06/20 20:02 82 97 10/06/20 19:57 70 98 10/06/20 19:55 88 92 10/06/20 19:52 62 100 10/06/20 19:51 61 122/58 L 10/06/20 19:47 59 L 100 10/06/20 19:42 67 99 10/06/20 19:37 72 100 10/06/20 19:36 75 130/62 10/06/20 19:32 77 100 10/06/20 19:27 71 100 Lab Results 10/06/20 10/06/20 10/06/20 Range/Units 07:59 07:59 07:59 WBC 7.87 (4.8-10.8) K/uL RBC 4.06 L (4.2-5.4) M/uL Hgb 12.0 (12.0-16.0) g/dL Hct 35.9 L (37-47) % MCV 88.4 (80-100) fL MCH 29.6 (25-34) pg MCHC 33.4 (32-36) g/dL RDW Std Deviation 47.8 H (36.4-46.3) fL RDW Coeff of Saira 14.8 H (11.5-14.5) % Plt Count 206 (130-400) K/uL MPV 10.7 H (7.4-10.4) fL Sodium 139 (136-145) mmol/L Potassium 3.4 L (3.5-5.1) mmol/L Chloride 107 (98-107) mmol/L Carbon Dioxide 23 (21-32) mmol/L Anion Gap 9.0 (3-11) BUN 10 (7-18) mg/dl Creatinine 0.65 (0.6-1.2) mg/dl Est Cr Clr Drug Dosing 204.1 ml/min Est GFR ( Amer) 139.1 Est GFR (Non-Af Amer) 120.0 BUN/Creatinine Ratio 16.0 (10-20) Glucose 85 (70-99) mg/dl Calcium 9.2 (8.5-10.1) mg/dl Total Bilirubin 0.3 (0.2-1) mg/dl AST 10 L (15-37) U/L ALT 19 (12-78) U/L Alkaline Phosphatase 117 (45-117) U/L Total Protein 6.6 (6.4-8.2) gm/dl Albumin 2.7 L (3.4-5.0) gm/dl Globulin 3.9 (2.5-4.0) gm/dl Albumin/Globulin Ratio 0.7 L (0.9-2) COVID-19 Eval Order SARS-CoV-2, RNA, NAAT (NEGATIVE) Blood Type O Positive Antibody Screen NEGATIVE 10/06/20 10/06/20 10/07/20 Range/Units Unknown Unknown 05:56 WBC 10.27 (4.8-10.8) K/uL RBC 3.76 L (4.2-5.4) M/uL Hgb 11.2 L (12.0-16.0) g/dL Hct 33.4 L (37-47) % MCV 88.8 (80-100) fL MCH 29.8 (25-34) pg MCHC 33.5 (32-36) g/dL RDW Std Deviation 48.2 H (36.4-46.3) fL RDW Coeff of Saira 14.9 H (11.5-14.5) % Plt Count 200 (130-400) K/uL MPV 10.5 H (7.4-10.4) fL Sodium (136-145) mmol/L Potassium (3.5-5.1) mmol/L Chloride (98-107) mmol/L Carbon Dioxide (21-32) mmol/L Anion Gap (3-11) BUN (7-18) mg/dl Creatinine (0.6-1.2) mg/dl Est Cr Clr Drug Dosing ml/min Est GFR ( Amer) Est GFR (Non-Af Amer) BUN/Creatinine Ratio (10-20) Glucose (70-99) mg/dl Calcium (8.5-10.1) mg/dl Total Bilirubin (0.2-1) mg/dl AST (15-37) U/L ALT (12-78) U/L Alkaline Phosphatase (45-117) U/L Total Protein (6.4-8.2) gm/dl Albumin (3.4-5.0) gm/dl Globulin (2.5-4.0) gm/dl Albumin/Globulin Ratio (0.9-2) COVID-19 Eval Order Covid19 [facility] SARS-CoV-2, RNA, NAAT NEGATIVE (NEGATIVE) Blood Type Antibody Screen PE: General: Alert, orientedx3, NAD Abd: soft, NT, fundus firm, below Umbilicus Perineum intact, Lochia rubra minimal Ext; NT, Homans sign neg/ neg, both has same varicose veins AP: 30 yo s/p , ppd# 1 VSS Afebrile doing well On lovenox Continue routine care All questions were answered D/C home tomorrow Results & Data ([facility]) Vital Signs (Past 12 Hours) Vital Signs Temp Pulse Pulse Resp BP BP Pulse Ox 10/07/20 03:30 36.6 C 71 16 114/88 98 10/06/20 23:25 36.7 C 77 16 113/69 10/06/20 22:22 79 117/57 L 10/06/20 21:51 91 H 119/59 L 10/06/20 21:36 74 126/66 10/06/20 21:21 70 129/68 10/06/20 21:20 36.8 C 18 10/06/20 21:09 73 129/60 10/06/20 20:51 78 111/56 L 10/06/20 20:37 79 100 10/06/20 20:36 78 113/58 L 10/06/20 20:32 86 100 10/06/20 20:27 87 100 10/06/20 20:22 83 100 10/06/20 20:21 94 H 108/83 10/06/20 20:17 81 100 10/06/20 20:12 88 100 10/06/20 20:07 127 H 100 10/06/20 20:02 82 97 10/06/20 19:57 70 98 10/06/20 19:55 88 92 10/06/20 19:52 62 100 10/06/20 19:51 61 122/58 L 10/06/20 19:47 59 L 100 10/06/20 19:42 67 99 10/06/20 19:37 72 100 10/06/20 19:36 75 130/62 10/06/20 19:32 77 100 10/06/20 19:27 71 100
[2020-10-07] MEDS: METHYLERGONOVINE MALEATE 0.2 MG TAB PO SCH ×4 (08:15→20:29)
[2020-10-07] MEDS: PRENATAL VITAMIN 1 TAB PO SCH (08:16)
[2020-10-07] MEDS: FERROUS SULFATE 325 MG TAB PO SCH (08:16)
[2020-10-07] MEDS: DOCUSATE SODIUM 100 MG CAP PO SCH ×2 (08:16→20:29)
[2020-10-07] MEDS: DICYCLOMINE HCL 20 MG TAB PO PRN ×3 (10:31→20:33)
[2020-10-07] MEDS: ENOXAPARIN 150 MG/ML SYR SQ SCH (13:01)
[2020-10-07] MEDS: POLYETHYLENE (MIRALAX) 17 GM PACK PO SCH (16:09)
[2020-10-07] MEDS ORDERED: bisacodyL 5 MG TABEC PO SCH (20:00)
[2020-10-08] MEDS: ENOXAPARIN 150 MG/ML SYR SQ SCH (00:36)
[2020-10-08] MEDS: DICYCLOMINE HCL 20 MG TAB PO PRN ×2 (00:37→09:02)
[2020-10-08] MEDS: IBUPROFEN 600 MG TAB PO PRN ×2 (00:37→09:03)
[2020-10-08] MEDS: oxyCODONE HCL IR 5 MG TAB (IMMEDIATE RELEASE) PO PRN (00:38)
[2020-10-08 06:18] LABS: Hematocrit (blood only) 33.1 % (37-47); Hemoglobin 10.9 g/dL (12.0-16.0)
[2020-10-08] MEDS: METHYLERGONOVINE MALEATE 0.2 MG TAB PO SCH (09:03)
[2020-10-08] MEDS: PRENATAL VITAMIN 1 TAB PO SCH (09:03)
[2020-10-08] MEDS: FERROUS SULFATE 325 MG TAB PO SCH (09:03)
[2020-10-08] MEDS: DOCUSATE SODIUM 100 MG CAP PO SCH (09:03)
[2020-10-08] MEDS: POLYETHYLENE (MIRALAX) 17 GM PACK PO SCH (09:04)
--- NOTE | 2020-10-08 09:51 | Surgery Progress Note ---
Date of Service October 08, 2020 Assessment & Plan Admission and Anticipated Discharge Date Admission Date: October 06, 2020 Subjective PPD#1 doing well passing gas tolerating diet out of bed Physical Exam Constitutional: WD/WN, vitals as above comfortable abdomen soft no edema neg Aurelio's for d/c Results & Data ([facility]) Vital Signs (Past 12 Hours) Vital Signs Temp Pulse Resp BP Pulse Ox 10/07/20 23:25 36.5 C 58 L 18 106/70 97 Laboratory Results 10/06/20 10/06/20 10/06/20 07:59 07:59 07:59 WBC 7.87 RBC 4.06 L Hgb 12.0 Hct 35.9 L MCV 88.4 MCH 29.6 MCHC 33.4 RDW Std Deviation 47.8 H RDW Coeff of Saira 14.8 H Plt Count 206 MPV 10.7 H Sodium 139 Potassium 3.4 L Chloride 107 Carbon Dioxide 23 Anion Gap 9.0 BUN 10 Creatinine 0.65 Est Cr Clr Drug Dosing 204.1 Est GFR ( Amer) 139.1 Est GFR (Non-Af Amer) 120.0 BUN/Creatinine Ratio 16.0 Glucose 85 Calcium 9.2 Total Bilirubin 0.3 AST 10 L ALT 19 Alkaline Phosphatase 117 Total Protein 6.6 Albumin 2.7 L Globulin 3.9 Albumin/Globulin Ratio 0.7 L COVID-19 Eval Order SARS-CoV-2, RNA, NAAT Blood Type O Positive Antibody Screen NEGATIVE 10/06/20 10/06/20 10/07/20 Unknown Unknown 05:56 WBC 10.27 RBC 3.76 L Hgb 11.2 L Hct 33.4 L MCV 88.8 MCH 29.8 MCHC 33.5 RDW Std Deviation 48.2 H RDW Coeff of Saira 14.9 H Plt Count 200 MPV 10.5 H Sodium Potassium Chloride Carbon Dioxide Anion Gap BUN Creatinine Est Cr Clr Drug Dosing Est GFR ( Amer) Est GFR (Non-Af Amer) BUN/Creatinine Ratio Glucose Calcium Total Bilirubin AST ALT Alkaline Phosphatase Total Protein Albumin Globulin Albumin/Globulin Ratio COVID-19 Eval [facility] SARS-CoV-2, RNA, NAAT NEGATIVE Blood Type Antibody Screen 10/08/20 06:03 WBC RBC Hgb 10.9 L Hct 33.1 L MCV MCH MCHC RDW Std Deviation RDW Coeff of Saira Plt Count MPV Sodium Potassium Chloride Carbon Dioxide Anion Gap BUN Creatinine Est Cr Clr Drug Dosing Est GFR ( Amer) Est GFR (Non-Af Amer) BUN/Creatinine Ratio Glucose Calcium Total Bilirubin AST ALT Alkaline Phosphatase Total Protein Albumin Globulin Albumin/Globulin Ratio COVID-19 Eval Order SARS-CoV-2, RNA, NAAT Blood Type Antibody Screen
== END 2020-10-08 10:55 | disposition home or self-care (01) | DRG 807 ==
LOC: 4S1 07:38 → 4S2 22:37